=== PATIENT | male | born 1935 | race Caucasian/White ===

== ENCOUNTER → 2016-08-19 10:19 | Outpatient (CLI) | payer MEDICARE, BC ==
[2016-04-30 10:07] VITALS: BMI 28.0
[~2016-08-19 10:19] MED LIST: ALDACTONE25 MG PO; BAYER CHEWABLE81 MG PO; BUMEX 1 MG TAB1 MG PO; COMBIGAN OPHT DR5 ML EACH EYE; COREG12.5 MG PO; FLOMAX0.4 MG PO; GLUCOPHAGE500 MG PO; HYDROCODON-ACE1 EAC7 PO; KLOR-CON/EF 2525 MEQ PO; LIPITOR40 MG PO; LOVASTATIN20 MG PO; PLAVIX75 MG PO; RANEXA500 MG PO; TRAVATAN Z2.5 ML LEFT EYE; VITAMIN B-1100 M1 PO
== END | disposition home or self-care (01) ==
LOC: D.NM 10:19 → D.CT 11:00
DX: M10.9 Gout, unspecified (principal); M79.672 Pain in left foot; M79.671 Pain in right foot

== ENCOUNTER → 2016-09-01 09:12 | Outpatient (CLI) | payer MEDICARE, BC ==
[2016-04-30 10:07] VITALS: BMI 28.0
== END | disposition home or self-care (01) ==
LOC: D.RAD 09:12
DX: M25.512 Pain in left shoulder (principal)

== ENCOUNTER → 2019-06-25 12:20 | Outpatient (CLI) | payer MEDICARE, BC ==
[2016-04-30 10:07] VITALS: BMI 28.0
== END | disposition home or self-care (01) ==
LOC: D.CT 12:20
PROVIDERS: ATTEND Pediatrics
DX: R22.31 Localized swelling, mass and lump, right upper limb (principal)

== ENCOUNTER 2020-03-13 22:14 | Inpatient (IN) | payer MEDICARE, BC ==
[~2020-03-13] VITALS: Ht 182.9 cm; Wt 95.3 kg
--- NOTE | ~2020-03-13 | EC ---
PATIENT:SOURAV KIRKPATRICK DATE OF SERVICE: 03/14/20 SEX: M MEDICAL RECORD: [id number] DATE OF : 39 LOCATION:D.MS [id number] AGE OF PATIENT: 85 ADMISSION DATE: 03/14/20 REFERRING PHYSICIAN: INTERPRETING PHYSICIAN: YURI DOYLE MD ECHOCARDIOGRAM REPORT ECHO CHARGES 4 ECHO COMPLETE Date: 03/14/20 CLINICAL DIAGNOSIS: SYNCOPE ECHOCARDIOGRAPHIC MEASUREMENTS (adult normal given) AC root (d.<3.7cm) 3.4 cm LV Septum d (<1.2 cm> 1.3 cm Valve Excursion 1.3 cm LV Septum (systole) 1.4 cm Left Atria (s.<4.0cm> 4.8 cm LVPW d(<1.2cm) 0.9 cm RV (d.<2.3cm) 3.7 cm LVPW (sytole) 1.2 cm LV diastole(<5.6CM) 5.9 cm MV E-F(>70mm/sec) cm LV systole 4.8 cm LVOT Diameter 2.4 cm MV exc.(>10mm) 1.4 cm Est.ejection fraction (50-75%) % DOPPLER: LVIT cm/sec A 91 cm/sec E 127 cm/sec LA cm/sec RVSP 38 mmHg LVOT 59 cm/sec AOP1/2T m/s Asc. Ao 225 cm/sec RVOT 55 cm/sec RA cm/sec PA 73 cm/sec AV Gradient Peak 20.3 mmHg AV Mean 12.3 mmHg AV Area 1.1 cm MV Gradient Peak 5.4 mmHg MV Mean 2.7 mmHg MV Area cm COMMENTS: Welfare Analyst: [facility] Collection Officer: 2 Dr. Helms TAPE# PACS Pericardial Effusion N DATE OF SERVICE: CLINICAL DIAGNOSIS: Syncope. FINDINGS: Left ventricle - moderate global LV contractile dysfunction with ejection fraction of 35% to 40%. Mild left ventricular hypertrophy. Mild left atrial chamber dilatation. Right atrial chamber size appears normal. Right ventricular chamber size and function appears normal. Mitral valve - [id number] mitral annular calcification. Mild mitral regurgitation. There is mild thickening and calcification of the aortic valve. Aortic ECHOCARDIOGRAM REPORT [id number] SOURAV KIRKPATRICK sclerosis/mild stenosis. Mild aortic regurgitation. Tricuspid valve appears normal. Mild tricuspid regurgitation. Pulmonic valve appears normal. Mild pulmonic regurgitation. IMPRESSION: 1. Moderate global left ventricular contractile dysfunction with ejection fraction of 35% to 40%. 2. Mild aortic sclerosis/stenosis. TRANSINT:[id number] Voice Confirmation ID: [id number] DOCUMENT ID: [id number] YURI DOYLE MD CC: [id number] DICTATION DATE: 03/15/20 1134 HIGH SCHOOL LEARNING SUPPORT TEACHER: 03/15/20 1253 ADM IN [facility] [address] [place] [address]
[2020-03-13] MEDS ORDERED: PROSCAR5 MG PO (22:23)
[2020-03-13] MEDS ORDERED: ENTRESTO 49 MG1 EACH PO (22:23)
[2020-03-13] MEDS ORDERED: LEXAPRO10 MG PO (22:23)
[2020-03-13] MEDS ORDERED: CRESTOR10 MG PO (22:23)
[2020-03-13 22:40] LABS: BASOPHILS 0.2 % (0-2); EOSINOPHILS 1.1 % (0-7); HEMATOCRIT 39.7 % (42.0-54.0); HEMOGLOBIN 13.2 g/dL (13.5-17.5); IMMATURE GRANULOCYTES 0.2 % (0-5); LYMPHOCYTES 16.2 % (15-50); MCH 29.7 pg (26.0-34.0); MCHC 33.2 g/dL (31.0-37.0); MCV 89.4 fL (80.0-100.0); MEAN PLATELET VOLUME 9.5 fL (7.4-10.4); MONOCYTES 6.5 % (2-11); NEUTROPHILS 75.8 % (40-80); RBC 4.44 10x6/uL (4.20-6.10); RDW 12.7 % (11.5-14.5); WBC 9.5 10x3/uL (4.8-10.8)
[2020-03-13 22:47] LABS: PLATELET COUNT 245 10x3/uL (130-400)
[2020-03-13 22:53] LABS: APTT 25.7 SECONDS (22.8-39.4); CALC OSMOLALITY 255 mosm/kg (275-300); CARBON DIOXIDE 27.6 mmol/L (21.0-32.0); CHLORIDE - SERUM 95 mmol/L (98-107); CREATININE - SERUM 0.9 mg/dL (0.6-1.3); GLUCOSE 115 mg/dL (74-106); INR 0.98 (0.85-1.17); POTASSIUM - SERUM 4.1 mmol/L (3.5-5.1); PROTIME 12.9 SECONDS (11.6-15.0); SODIUM 127 mmol/L (136-145); UREA NITROGEN 12 mg/dL (7-18); eGFR NON AFRICAN AMERICAN 85 mL/min (90-120)
[2020-03-13 23:08] LABS: ALBUMIN 3.3 g/dL (3.4-5.0); ALKALINE PHOSPHATASE 77 U/L (30-120); ALT (SGPT) 24 U/L (10-68); BILIRUBIN - TOTAL 0.36 mg/dL (0.2-1.3); CKMB 1.7 U/L (0.0-3.6); CREATINE KINASE 72 UL (21-232); MAGNESIUM - SERUM 1.6 mg/dL (1.8-2.4); PROTEIN - SERUM 7.1 g/dL (6.4-8.2); TROPONIN-I 0.018 ng/mL (0.000-0.060)
--- NOTE | 2020-03-14 00:45 | NUR ---
EDP AT PT'S BEDSIDE TO SUTURE LACERATIONS.
[2020-03-14 03:00] VITALS: BP 119/59
--- NOTE | 2020-03-14 03:00 | NUR ---
ANSWERED PT'S CALL LIGHT, PT REQUESTING PAIN MEDICATION STATES " MY SHOULDER HURTS SO BAD I WANT TO CRY" EDP INFORMED ORDERED PRN PAIN MEDICATION GIVEN.
[2020-03-14 06:08] VITALS: BP 120/70
--- NOTE | 2020-03-14 07:30 | NUR ---
3X4 TELFA USED FOR PRESSURE DRESSING TO BRIDGE OF NOSE TO CONTROL BLEEDING.
--- NOTE | 2020-03-14 08:06 | NUR ---
COVID SWAB OBTAINED AND SENT TO THE LAB.
[2020-03-14 12:17] VITALS: BP 112/55; BMI 28.5
[2020-03-14 12:55] VITALS: BP 130/63
[2020-03-14 15:23] LABS: CKMB 1.3 U/L (0.0-3.6); CREATINE KINASE 72 UL (21-232); TROPONIN-I < 0.017 ng/mL (0.000-0.060)
[2020-03-14 15:47] LABS: BILIRUBIN NEGATIVE (NEGATIVE); KETONE NEGATIVE (NEGATIVE); NITRITE NEGATIVE (NEGATIVE); UROBILINOGEN NORMAL mg/dL (< 2); WHITE CELLS - URINE OCC HPF (0-1)
[2020-03-14 17:22] VITALS: BP 126/62
[2020-03-14 20:10] LABS: CKMB 1.4 U/L (0.0-3.6); CREATINE KINASE 86 UL (21-232)
--- NOTE | 2020-03-14 21:00 | NUR ---
IV OUT, CATH INTACT. PT REMOVED TELEMETRY. NOT COMPLYING WITH STAFF. CONFUSED ABOUT TIME/PLACE/SITUATION. REFUSING REORIENTATION. ASKING FOR , HANG. HANG(SPOUSE) CALLED, NO ANSWER. SOURAV SAMANIEGO JR(SON) CALLED. SON STATES HANG IS NOT HIS LEGAL AND IS NOT KNOWLEDGABLE OF PTs MEDICAL INFORMATION AND QUESTIONS/CONCERNS WOULDL BE BETTER ANSWERED THROUGH HIM. HE ALSO REPORTS PT DRINKS A FEW GLASSES HARPREET SCOTCH A DAY AND HE HAS GONE THROUGH DTs DURING PRIOR HOSPITALIZATIONS. SON, ALSO, SPOKE WITH PT AND ENCOURAGED COMPLIANCE. PT ALLOWED INSERTION OF 20G IV TO LEFT FOREARM AND APPLICATION OF TELEMETRY. PTs SON ENCOURAGES ALL CALLS OF NEW INFORMATION, CONCERNS, OR IF PT BECOMES NON-COMPLIANT AGAIN-ANY TIME OF DAY OF NIGHT. CTM.
[2020-03-14 21:08] VITALS: BP 112/55
[2020-03-15 01:14] VITALS: BP 187/67
--- NOTE | 2020-03-15 01:18 | NUR ---
I have reviewed this patient and I concur with the Shift Assessment completed by the Licensed Practical Nurse today this shift.
[2020-03-15 02:02] LABS: BASOPHILS 0.2 % (0-2); EOSINOPHILS 0.8 % (0-7); HEMATOCRIT 34.2 % (42.0-54.0); HEMOGLOBIN 11.3 g/dL (13.5-17.5); IMMATURE GRANULOCYTES 0.2 % (0-5); LYMPHOCYTES 11.3 % (15-50); MCH 29.4 pg (26.0-34.0); MCV 88.8 fL (80.0-100.0); MEAN PLATELET VOLUME 9.5 fL (7.4-10.4); MONOCYTES 9.2 % (2-11); NEUTROPHILS 78.3 % (40-80); PLATELET COUNT 200 10x3/uL (130-400); RBC 3.85 10x6/uL (4.20-6.10); RDW 12.7 % (11.5-14.5)
[2020-03-15 02:28] LABS: ALBUMIN 2.9 g/dL (3.4-5.0); ALKALINE PHOSPHATASE 61 U/L (30-120); ALT (SGPT) 18 U/L (10-68); BILIRUBIN - TOTAL 0.49 mg/dL (0.2-1.3); CALC OSMOLALITY 253 mosm/kg (275-300); CALCIUM 8.2 mg/dL (8.5-10.1); CARBON DIOXIDE 27.6 mmol/L (21.0-32.0); CHLORIDE - SERUM 96 mmol/L (98-107); CKMB 1.6 U/L (0.0-3.6); CREATINE KINASE 102 UL (21-232); CREATININE - SERUM 0.8 mg/dL (0.6-1.3); GLUCOSE 118 mg/dL (74-106); MAGNESIUM - SERUM 1.6 mg/dL (1.8-2.4); POTASSIUM - SERUM 4.2 mmol/L (3.5-5.1); PRO BNP 1691 pg/mL (0-450); PROTEIN - SERUM 6.1 g/dL (6.4-8.2); SODIUM 126 mmol/L (136-145); TROPONIN-I 0.023 ng/mL (0.000-0.060); UREA NITROGEN 13 mg/dL (7-18); eGFR NON AFRICAN AMERICAN > 90 mL/min (90-120)
--- NOTE | 2020-03-15 04:06 | NUR ---
PT REFUSING TELEMETRY. WILL NO ALLOW IT TO BE REAPPLIED, CURSING AT NURSES, CTM.
--- NOTE | 2020-03-15 07:53 | NUR ---
0700 BEDSIDE REPORT RECEIVED ASSISTED UP TO BSC ALARM WENT OFF PT WAS CLIMBING OUT OF BED ATIVAN 0.5 GIVEN IV ASSESSMENT COMPLETE
[2020-03-15 18:06] VITALS: BP 142/71
--- NOTE | 2020-03-15 18:51 | NUR ---
ORTHOSATIC BP FOLLOWS: LYING BP 134/80 HR 73 SITTING 141/70 83 STANDING 89/65 82
--- NOTE | 2020-03-15 18:54 | NUR ---
874 YOGESH NOTIFIED FOR REHAB CONSULT
[2020-03-15 21:18] VITALS: BP 123/71
--- NOTE | 2020-03-16 01:11 | NUR ---
ASSISTED TO TOILET AND BED CHANGE AND GOWN CHANGE PROVIDED TO PATIENT. RETURNED TO BED SAFELY. VARGAS ALARM ON. CPOC.
[2020-03-16 01:23] VITALS: BP 128/75
[2020-03-16 05:08] VITALS: BP 143/63
[2020-03-16 07:03] LABS: BASOPHILS 0.2 % (0-2); EOSINOPHILS 1.8 % (0-7); HEMATOCRIT 32.8 % (42.0-54.0); HEMOGLOBIN 10.5 g/dL (13.5-17.5); IMMATURE GRANULOCYTES 0.3 % (0-5); LYMPHOCYTES 11.4 % (15-50); MCH 28.5 pg (26.0-34.0); MCV 88.9 fL (80.0-100.0); MEAN PLATELET VOLUME 9.9 fL (7.4-10.4); MONOCYTES 9.2 % (2-11); NEUTROPHILS 77.1 % (40-80); PLATELET COUNT 235 10x3/uL (130-400); RBC 3.69 10x6/uL (4.20-6.10); RDW 12.7 % (11.5-14.5); WBC 10.2 10x3/uL (4.8-10.8)
[2020-03-16 07:18] LABS: ALBUMIN 2.8 g/dL (3.4-5.0); ALKALINE PHOSPHATASE 61 U/L (30-120); ALT (SGPT) 17 U/L (10-68); BILIRUBIN - TOTAL 0.45 mg/dL (0.2-1.3); CALC OSMOLALITY 256 mosm/kg (275-300); CALCIUM 8.3 mg/dL (8.5-10.1); CARBON DIOXIDE 26.3 mmol/L (21.0-32.0); CHLORIDE - SERUM 97 mmol/L (98-107); CREATININE - SERUM 0.7 mg/dL (0.6-1.3); GLUCOSE 102 mg/dL (74-106); MAGNESIUM - SERUM 1.9 mg/dL (1.8-2.4); POTASSIUM - SERUM 3.9 mmol/L (3.5-5.1); PROTEIN - SERUM 6.1 g/dL (6.4-8.2); SODIUM 129 mmol/L (136-145); eGFR NON AFRICAN AMERICAN > 90 mL/min (90-120)
[2020-03-16 07:19] LABS: UREA NITROGEN 8 mg/dL (7-18)
--- NOTE | 2020-03-16 08:15 | NUR ---
PATIENT CNC MAINTENANCE MECHANIC LIGHT. COMPLAINS OF COUGHING UP BLOOD. BRIGHT RED BLOOD NOTED IN URINAL AND ON [place]. CALLED HANG RO , ORDERED A CHEST XRAY AND CONSULT TO DR. HATFIELD. WILL CONTINUE TO MONITOR.
[2020-03-16 08:22] VITALS: BP 123/59
[2020-03-16 12:07] VITALS: BP 136/61
--- NOTE | 2020-03-16 14:41 | NUR ---
rehab prescreen thank you for this eval, currently alda patient hasnt paricipated in any therapy so unable to deturm his need for therapy. will monitor this patient and his progress. thank you for this eval. maritza gonzalez lpn clinical liasion
[2020-03-16 17:48] VITALS: BP 111/48
--- NOTE | 2020-03-16 18:14 | NUR ---
PT ADITTED AT 1630 FROM ER. MOM STATES BABY IS STILL NURSING AND HAVING WET/DIRTY DIAPERS APPROX 10/DAY. STATES RAN FEVER THIS AM. VS ON ARRIVAL 98.4 TEMPORAL P 145 R 22 BP 126/58 WT 6.035 KG PER PEDI SCALE. NO DIAPER RASH NOTED. SALINE LOCK TO LEFT HAND. DR SMITH HERE FOR LUMBAR PUNCTURE. PERMIT SIGNED.
--- NOTE | 2020-03-16 19:00 | NUR ---
PATIENT ALERT AND ORIENTED TO SELF AND SURROUNDINGS. PATIENT CURRENTLY HAVING EPISTAXIS. ASSISTED PATIENT WITH CLEAN UP. HAD PATIENT SIT UP IN BED, RAISE HEAD OF BED. PROVIDED WITH WASH CLOTHS AND TISSUES, INSTRUCTED TO HOLD PRESSURE. BLEEDING DECREASING. CALL LIGHT CLOSE. PATIENT CLOSE TO NURSES STATION FOR MONITORING. FALL PRECAUTIONS IN PLACE. ASSESSMENT PERFORMED. CPOC.
--- NOTE | 2020-03-16 20:30 | NUR ---
PROVIDED ICE AND INSTRUCTED PATIENT TO USE ICE PACK AND APPLY PRESSURE TO NOSE. PATIENT PERFORMS INSTRUCTIONS WITH NO PROBLEMS. BLEEDING CONTINUING TO DECREASE.
--- NOTE | 2020-03-16 21:15 | NUR ---
BLEEDING VERY MINIMAL AFTER ICE PACKS TO NOSE. ASSISTED PATIENT WITH CHG BATH, LINEN AND GOWN CHANGE. PATIENT TOLERATED WELL. CALL LIGHT CLOSE. INSTRUCTED PATIENT TO KEEP APPLYING PRESSURE AT THIS TIME. PATIENT FOLLOWING INSTRUCTIONS WHEN EXTITING THE ROOM. CPOC.
[2020-03-16 21:48] VITALS: BP 138/72
--- NOTE | 2020-03-16 21:52 | NUR ---
NO EPISTAXIS AT THIS TIME. ICE PACK AT BEDSIDE IF NEEDED. ADMINISTERED PATIENT MEDICATIONS. FSBS 124. DENIES FURTHER NEEDS AT THIS TIME. CALL LIGHT CLOSE. FALL PRECAUTIONS REMAIN IN PLACE. WATER, GLASSES, AND PHONE WITHIN REACH OF PATIENT. REFUSING SCD'S AT THIS TIME. WEARING BLUE SOCKS PER FALL PRECAUTIONS AND YELLOW GOWN. INCENTIVE SPIROMETER CLOSE TO PATIENT, ENCOURAGED TO USE. REFUSES AT THIS TIME. CPOC.
--- NOTE | 2020-03-16 23:40 | NUR ---
RESTING WITH NO SIGNS OR SYMPTOMS OF DISTRESS AT THIS TIME. CALL LIGHT REMAINS CLOSE. CPOC.
--- NOTE | 2020-03-17 03:43 | NUR ---
MINIMAL NOSE BLEED. PROVIDED FACIAL CLEAN UP AND NEW ICE BAG. ASSISTED PATIENT WITH GETTING COMFORTABLE, APPLYING ICE PACK, AND PROVIDING WARM BLANKET. RESTING WITH ICE PACK ON NOSE WHEN EXITING THE ROOM.
[2020-03-17 05:13] VITALS: BP 103/45
[2020-03-17 05:43] LABS: BASOPHILS 0.2 % (0-2); EOSINOPHILS 1.2 % (0-7); HEMATOCRIT 27.9 % (42.0-54.0); HEMOGLOBIN 9.2 g/dL (13.5-17.5); IMMATURE GRANULOCYTES 0.2 % (0-5); LYMPHOCYTES 11.9 % (15-50); MCH 29.7 pg (26.0-34.0); MEAN PLATELET VOLUME 9.9 fL (7.4-10.4); MONOCYTES 7.8 % (2-11); NEUTROPHILS 78.7 % (40-80); PLATELET COUNT 234 10x3/uL (130-400); RDW 12.8 % (11.5-14.5); WBC 8.9 10x3/uL (4.8-10.8)
[2020-03-17 06:26] LABS: ALBUMIN 2.5 g/dL (3.4-5.0); ALKALINE PHOSPHATASE 54 U/L (30-120); ALT (SGPT) 17 U/L (10-68); BILIRUBIN - TOTAL 0.24 mg/dL (0.2-1.3); CALC OSMOLALITY 266 mosm/kg (275-300); CALCIUM 8.3 mg/dL (8.5-10.1); CARBON DIOXIDE 26.3 mmol/L (21.0-32.0); CHLORIDE - SERUM 98 mmol/L (98-107); CREATININE - SERUM 0.7 mg/dL (0.6-1.3); GLUCOSE 125 mg/dL (74-106); MAGNESIUM - SERUM 1.8 mg/dL (1.8-2.4); POTASSIUM - SERUM 3.9 mmol/L (3.5-5.1); PROTEIN - SERUM 5.6 g/dL (6.4-8.2); SODIUM 131 mmol/L (136-145); eGFR NON AFRICAN AMERICAN > 90 mL/min (90-120)
[2020-03-17 06:27] LABS: UREA NITROGEN 21 mg/dL (7-18)
--- NOTE | 2020-03-17 07:15 | NUR ---
RECEIVED BEDSIDE REPORT. PT LAYING IN BED, EVEN RESPIRATIONS, EYES CLOSED. PIV IN LEFT FOREARM, PATENT AND INFUSING, NO REDNESS OR SWELLING. BRUISES ON FACE, NOSE AND CHIN, LACERATION ON BRIDGE OF NOSE. PT HAS PACEMAKER. BED LOW, ALARM ON. CL IN REACH, WILL CONTINUE TO MONITOR.
[2020-03-17 07:59] VITALS: BP 145/61
--- NOTE | 2020-03-17 09:30 | NUR ---
PT C/O PAIN 01/27, PROVIDED PAIN MEDS PER ORDER, PT TOLERATED WELL. PT ON FLUID RESTRICTION OF 12OOML, EDUCATED PT AND HE VERBALIZED UNDERSTANDING. BED ALARM ON, CL IN REACH.
--- NOTE | 2020-03-17 11:30 | NUR ---
NM AT BEDSIDE, EXPLAINED PROCEDURE TO PT AND BROTHER, BOTH VERBALIZED UNDERSTANDING AND SIGNED CONSENTS. WILL HOLD ALL BLOOD THINNERS UNTIL PROCEDURE ON TUE. BED LOW, CL IN REACH.
[2020-03-17 11:49] VITALS: BP 126/61
--- NOTE | 2020-03-17 14:01 | MORECARE ---
CASE MANAGEMENT DISCHARGE SUMMARY PATIENT: SOURAV KIRKPATRICK UNIT: [id number] ADM DATE: 03/14/20 AGE: 85 : 37 SEX: M ROOM/BED: D.2229 AUTHOR: RADHA LLANOS PHYSICIAN: REFERRING PHYSICIAN: MIYA CHAVES MD DATE OF SERVICE: 03/17/20 Discharge Plan Patient Name: SOURAV KIRKPATRICK Facility: [facility]:[place] : 1935 Planned Disposition: Anticipated Discharge Date: Discharge Date: Expected LOS: Initial Reviewer: [id number] Initial Review Date: 03/14/2020 Generated: 03/17/20 3:00 pm Comments DCP- Discharge Planning Updated by [email or web address]: Leyla Leija on 03/17/20 12:[address] Patient Name: SOURAV KIRKPATRICK Admission Status: ER Accout number: [id number] Admission Date: 03-14-2020 : 1935 Admission Diagnosis: Attending: ANDIE, Current LOS: 3 Anticipated DC Date: Planned Disposition: Primary Insurance: MEDICARE A & B Discharge Planning Comments: CM met with patient AND HIS SON at bedside after explaining CM role and obtaining verbal consent. CM discussed availability / needs of home health, REHAB and medical equipment. STATES HE HAS DME AND HAS [facility] AT HOME. HE IS UNSURE OF HIS DC PLAN. STATES UNSURE IF HE IS RESUMING HOSPICE OR WILL NEED HH OR REHAB. HE ASKED ME TO TALK WITH HIS SON SOURAV AND GAVE ME HIS NUMBER [phone]. I WILL TALK WITH SON TO GET A BETTER IDEA OF THE DC PLAN. I WILL FOLLOW AND ASSIST NEEDED. Belt Cleaner: Leyla Leija DCPIA - Discharge Planning Initial Assessment Updated by [id number]: Leyla Leija on 03/17/20 1:54 pm * Is the patient Alert and Oriented? Yes * PCP SAAVEDRA * Pharmacy [facility] * Preadmission Environment Home with Family * ADLs Independent * Other Equipment CANE, WALKER, WHEEL CHAIR * List name and contact numbers for known caregivers / representatives who currently or will assist patient after discharge: LUIS A BENJAMIN, * Community resources currently utilized [facility]osp[facility] Home * Please name any agencies selected above. [facility] * Additional services required to return to the preadmission environment? No * Can the patient safely return to the preadmission environment? Yes * Has this patient been hospitalized within the prior 30 days at any hospital? No External Providers External Provider: [facility] in Next Contact Date: Service Request Date: Service Type: Resolution: Reviewer: Comments: Patient Name: SOURAV KIRKPATRICK Page [phone] at 1401 All edits/amendments must be made on the electronic document DICTATION DATE: 03/17/20 1400 PRESCRIPTION CLERK: SEBLE 03/17/20 1400 RPT#: [id number] DC DATE: STATUS: ADM IN [facility] [address] [place] [address] END OF REPORT
--- NOTE | 2020-03-17 15:04 | NUR ---
OT NOTE: PT REQUIRED MIN A FOR UB HYGIENE TASKS. PT IS CONFUSED AND REQUIRED VERBAL CUES FOR TASK COMPLETION. PT COMPLETED POSITIONING WITH MIN A. 120-144 THANK YOU,MIMI KHALIL
--- NOTE | 2020-03-17 15:30 | NUR ---
ASSISTED PT WITH BED CHANGE AND BED BATH, PT TOLERATED WELL. BED LOW, CL IN REACH.
[2020-03-17 16:49] VITALS: BP 139/63
--- NOTE | 2020-03-17 18:45 | NUR ---
PT C/O THAT DINNER TRAY WAS TO SOLID FOR HIM TO EAT AND HE IS MISSING TEETH AND CANNOT CHEW, PUT IN ORDER TO DIETARY. BED LOW, CL IN REACH.
--- NOTE | 2020-03-17 19:30 | NUR ---
RECEIVED BEDSIDE REPORT. PT LAYING IN BED, EYES CLOSED, EVEN RESPIRATIONS. BRUISES ON FACE AND CHIN. LACERATION AND BRUISE ON BRIDGE OF NOSE. PIV IN LEFT FOREARM, PATENT AND INFUSING, NO REDNESS OR SWELLING. PT HAS PACEMAKER. EDUCATED PT ON CL AND NEEDS, VERBALIZED UNDERSTANDING. BED LOW, RAILS X2. CL IN REACH, WILL CONTINUE TO MONITOR.
[2020-03-17 20:00] VITALS: BP 127/60
--- NOTE | 2020-03-17 20:05 | NUR ---
RESTING IN BED WITH NO NEEDS ALERT WITH CONFUSION PRESENT. ON ROOM AIR. IV TO LEFT FORARM WITH NS AT 75ML/HR, FSBS ACHS WITH S/S [place] [address] [place] BRUSING NOTED TO FACE AND NECK. LEFT EYE, LASARATION TO NOSE. BED ALARM IN PLACE AND WORKING. CALL LIGHT IN REACH. NO S/S OF DISTRESS NOTED AT THIS TIME.
[2020-03-18 04:00] VITALS: BP 112/59
[2020-03-18 06:36] LABS: BASOPHILS 0.2 % (0-2); EOSINOPHILS 2.2 % (0-7); HEMATOCRIT 26.7 % (42.0-54.0); HEMOGLOBIN 8.8 g/dL (13.5-17.5); IMMATURE GRANULOCYTES 0.2 % (0-5); MCH 29.7 pg (26.0-34.0); MCV 90.2 fL (80.0-100.0); MEAN PLATELET VOLUME 9.8 fL (7.4-10.4); MONOCYTES 7.9 % (2-11); NEUTROPHILS 77.5 % (40-80); PLATELET COUNT 234 10x3/uL (130-400); RBC 2.96 10x6/uL (4.20-6.10); RDW 12.8 % (11.5-14.5); WBC 9.7 10x3/uL (4.8-10.8)
[2020-03-18 07:06] LABS: ALBUMIN 2.5 g/dL (3.4-5.0); ALKALINE PHOSPHATASE 51 U/L (30-120); ALT (SGPT) 16 U/L (10-68); BILIRUBIN - TOTAL 0.21 mg/dL (0.2-1.3); CALC OSMOLALITY 265 mosm/kg (275-300); CALCIUM 8.2 mg/dL (8.5-10.1); CARBON DIOXIDE 26.3 mmol/L (21.0-32.0); CHLORIDE - SERUM 97 mmol/L (98-107); CREATININE - SERUM 0.8 mg/dL (0.6-1.3); GLUCOSE 127 mg/dL (74-106); MAGNESIUM - SERUM 1.6 mg/dL (1.8-2.4); POTASSIUM - SERUM 3.9 mmol/L (3.5-5.1); PROTEIN - SERUM 5.6 g/dL (6.4-8.2); SODIUM 131 mmol/L (136-145); eGFR NON AFRICAN AMERICAN > 90 mL/min (90-120)
--- NOTE | 2020-03-18 07:15 | NUR ---
RECEIVED BEDSIDE REPORT. PIV TO LEFT FOREARM, PATENT AND INFUSING, NO REDNESS OR SWELLING. BRUISES ON FACE, EYES, CHIN AND UPPER NECK. LACERATION ON BRIDGE OF NOSE. MISSING TEETH FROM FALL. PT REPORTS PACEMAKER AND DEFIBL. PT ABLE TO USE URINAL AT BEDSIDE, AMBULATES WITH TWO PERSON ASSIST. EDUCATED PT ON CL AND NEEDS, VERBALIZED UNDERSTANDING. BED LOW, ALARM ON, RAILS X2. CL IN REACH, WILL CONTINUE TO MONITOR.
[2020-03-18 07:16] LABS: UREA NITROGEN 15 mg/dL (7-18)
[2020-03-18 08:51] VITALS: BP 151/58
--- NOTE | 2020-03-18 09:30 | NUR ---
PT C/O PAIN 01/27, PROVIDED MEDS PER ORDER. PT C/O SOILED LININS, CHANGED LININ AND GOWN, PT TOLERATED WELL. BED LOW, ALARM ON, RAILS X2. CL IN REACH, WILL CONTINUE TO MONITOR.
--- NOTE | 2020-03-18 11:25 | NUR ---
Pt has hx of falling. He has bruising and redness to both eyes, mouth, neck and arms. There is a laceration with sutures on nose. No chronic wounds are noted. Wound care monitoring.
--- NOTE | 2020-03-18 11:30 | NUR ---
PT FSBS 130, NO INSULIN GIVEN PER SLIDING SCALE. BED LOW, ALARM ON, RAILS X2. CL IN REACH, WILL CONTINUE TO MONITOR.
[2020-03-18 11:51] VITALS: BP 111/45
[2020-03-18 14:45] VITALS: Ht 182.9 cm; Wt 95.3 kg
--- NOTE | 2020-03-18 15:42 | NUR ---
OT NOTE: ATTEMPTED THERAPY SEVERAL TIMES, HOWEVER, UNABLE TO SEE UNTIL PM. PT ABLE TO PERFORM BED MOB WITH MOD ASSIST; SIT TO STAND WITH MIN ASSIST X 2; ABLE TO TAKE A FEW STEPS IN ROOM WITH WALKER, IV POLE, AND MIN/MOD ASSIST X 2..REQURIES MOD ASSIST FOR WALKER MGMT . PT FATIGUED QUICKLY. EDUCATED ON UE/LE EXS WHILE ON EOB. BACK TO BED WITH MAX ASSIST; PT ABLE TO PERFORM FEEDING AND SIMPLE GROOMING WITH SET UP; MAX ASSIST WITH TOILET HYGIENE MERY HERNANDEZ, OTR/L [phone]
--- NOTE | 2020-03-18 18:06 | NUR ---
OT NOTE: PT COMPLETED SIDE ROLLING WITH MIN A. PT COMPLETED SUPINE TO SIT WITH MOD A. PT REQUIRED MOD A TO MANAGE LE AND MAINTAIN TRUNK CONTROL AT EOB. PT USED BUE STRENGTH TO ASSIST IN SITTING BALANCE BY GRIPPING SIDE RAIL AND EOB BED. [phone] DEE PERRY COTA
[2020-03-18 18:09] VITALS: BP 120/60
[2020-03-18 20:00] VITALS: BP 126/57
--- NOTE | 2020-03-18 20:00 | NUR ---
PT SITTING UP IN BED WITHOUT DISTRESS, STATES HE ACCIDENTALLY SPILT URINAL ON HIMSELF. LINENS CHANGED AT THIS TIME. IV LEFT FA INFUSING NS @ 75. DENIES NEEDS AT THIS TIMTE. CL IN REACH, WILL CTM
--- NOTE | 2020-03-18 20:00 | NUR ---
PT SITTING UP IN BED WITHOUT DISTRESS, AOX4. IV LEFT FA INFUSING NS @ 75. BED ALARM ON. USING URINAL. REQUESTING PAIN MEDS FOR PAIN. GAVE MORPHINE ORDERED. FSBS 139, NO COVERAGE PER SS. DENIES OTHER NEEDS AT THIS TIME. CL IN REACH, WILL CTM
--- NOTE | 2020-03-18 21:30 | NUR ---
PT FELT LIKE HE NEEDED TO HAVE BM. ASSISTED PT UP TO BEDSIDE COMMODE WITH MOD ASSIST. PT HAD SMALL BM. ASSISTED BACK TO BED. DENIES OTHER NEEDS. WILL CTM
--- NOTE | 2020-03-19 02:00 | NUR ---
PT PULLED IV OUT OF LEFT FA WITH CATH INTACT. STATES HE GOT TANGLED UP AND COULD NOT MOVED ARM SO HE PULLED IT OUT. SITED 2OG IV TO LEFT FA X1 ATTMEPT. DENIES OTHER NEEDS. WILL CTM
[2020-03-19 04:00] VITALS: BP 120/58
[2020-03-19 06:11] LABS: BASOPHILS 0.2 % (0-2); EOSINOPHILS 2.2 % (0-7); HEMATOCRIT 26.8 % (42.0-54.0); HEMOGLOBIN 8.6 g/dL (13.5-17.5); IMMATURE GRANULOCYTES 0.3 % (0-5); LYMPHOCYTES 10.1 % (15-50); MCH 28.7 pg (26.0-34.0); MCHC 32.1 g/dL (31.0-37.0); MCV 89.3 fL (80.0-100.0); MEAN PLATELET VOLUME 9.7 fL (7.4-10.4); MONOCYTES 7.1 % (2-11); NEUTROPHILS 80.1 % (40-80); PLATELET COUNT 250 10x3/uL (130-400); RDW 12.7 % (11.5-14.5); WBC 10.6 10x3/uL (4.8-10.8)
[2020-03-19 06:46] LABS: ALBUMIN 2.6 g/dL (3.4-5.0); ALKALINE PHOSPHATASE 54 U/L (30-120); ALT (SGPT) 18 U/L (10-68); BILIRUBIN - TOTAL 0.28 mg/dL (0.2-1.3); CALC OSMOLALITY 257 mosm/kg (275-300); CALCIUM 7.7 mg/dL (8.5-10.1); CARBON DIOXIDE 28.1 mmol/L (21.0-32.0); CHLORIDE - SERUM 95 mmol/L (98-107); CREATININE - SERUM 0.7 mg/dL (0.6-1.3); GLUCOSE 132 mg/dL (74-106); MAGNESIUM - SERUM 1.7 mg/dL (1.8-2.4); POTASSIUM - SERUM 3.9 mmol/L (3.5-5.1); PROTEIN - SERUM 5.8 g/dL (6.4-8.2); SODIUM 128 mmol/L (136-145); eGFR NON AFRICAN AMERICAN > 90 mL/min (90-120)
[2020-03-19 06:48] LABS: UREA NITROGEN 11 mg/dL (7-18)
--- NOTE | 2020-03-19 07:15 | NUR ---
RECEIVED BEDSIDE REPORT. PT LAYING IN BED, A & OX1, ORIENTATED TO SELF ONLY. PT STATES "WHEN WILL I BE GOING TO THE HOSPITAL FOR MY SURGERY?", REORIENTATED PT TO WHERE HE WAS AND THAT HE WOULD BE GOING IN FOR A CISTERNOGRAM AND NOT SX, DISCUSSED THE PROCEDURE, PT VERBALIZED UNDERSTANDING. PIV TO LEFT FOREARM, PATENT AND INFUSING. PT ABLE TO USE BEDSIDE URINAL, ONE PERSON ASSSIT TO BR. BRUISES ON BILAT ARMS, BILAT EYES, BRIDGE OF NOSE, CHIN AND UPPER NECK. LACERATION ON BRIDGE OF NOSE, MISSING TEETH. EDUCATED PT OF FLUID RESTRICTION, CL AND NEEDS, VERBALIZED UNDERSTANDING. BED LOW, RAILS X2, ALARM ON. CL IN REACH. WILL CONTINUE TO MONITOR.
[2020-03-19 07:58] VITALS: BP 113/46
--- NOTE | 2020-03-19 08:49 | NUR ---
TIMEOUT PERFORMED AT 0835 WITH AND NAME
--- NOTE | 2020-03-19 09:10 | NUR ---
NUCLEAR MED ESCORTED PT TO CISTERNOGRAM VIA BED.
--- NOTE | 2020-03-19 10:45 | NUR ---
NUCLEAR MED ESCORTED PT TO ROOM VIA BED. VS WNL. GIVEN POST PROCEDURE INSTRUCTIONS SEE CHART. INFORMED PT THAT PHYSICAL THERAPY OF HOLD ON THERAPY. PT ABLE TO RESUME BLOOD THINNER MEDICATIONS. GAVE MORNING MEDS AND BLOOD THINNERS. BED LOW, ALARM ON. CL IN REACH. WILL CONITNUE TO MONITOR.
[2020-03-19 11:38] VITALS: BP 141/65
--- NOTE | 2020-03-19 14:07 | NUR ---
Nutrition Follow-up: Patient with some confusion per nursing notes. Diet: Cardiac Mech Soft + Glucerna and magic cup with meals PO intake: 0-25% x last 3 meals recorded Last BM: 03/15/20. Wt: 210# (03/18/20) Meds noted: SSI, metformin, amoxicillin, NS@75 Labs noted: Alb 2.6(L), Mag 1.7(L), POC Glu 127(H), Na 128(L) Recommend continue current diet and oral nutrition supplements. Recommend encouraged PO intake and help with meals by nursing staff if needed. May need to consider advanced nutrition support if PO intake does not improve. RD following.
--- NOTE | 2020-03-19 15:42 | MORECARE ---
CASE MANAGEMENT DISCHARGE SUMMARY PATIENT: SOURAV KIRKPATRICK UNIT: [id number] ADM DATE: 03/14/20 AGE: 85 : 37 SEX: M ROOM/BED: D.2229 AUTHOR: ROMIDOC PHYSICIAN: REFERRING PHYSICIAN: MIYA CHAVES MD DATE OF SERVICE: 03/19/20 Discharge Plan Patient Name: SOURAV KIRKPATRICK Facility: [facility]:[place] : 1935 Planned Disposition: Anticipated Discharge Date: Discharge Date: Expected LOS: Initial Reviewer: [id number] Initial Review Date: 03/14/2020 Generated: 03/19/20 4:41 pm Comments DCP- Discharge Planning Updated by [email or web address]: Leyla Leija on 03/19/20 2:[address] Patient Name: SOURAV KIRKPATRICK Admission Status: ER Accout number: [id number] Admission Date: 03-14-2020 : 1935 Admission Diagnosis:FRACTURE OF NASAL BONES, INIT ENCNTR FOR CLOSED FRACTUR Attending: ANDIE, Current LOS: 5 Anticipated DC Date: Planned Disposition: Primary Insurance: MEDICARE A & B Discharge Planning Comments: PATIENT WOULD BE APPROPRIATE FOR [facility], [facility] CAN ACCEPT HIM WHEN HES MEDICALLY STABLE. General Road Production Manager: Leyla Leija DCP- Discharge Planning Updated by [email or web address]: Leyla Leija on 03/17/20 12:[address] Patient Name: SOURAV KIRKPATRICK Admission Status: ER Accout number: [id number] Admission Date: 03-14-2020 : 1935 Admission Diagnosis: Attending: ANDIE, Current LOS: 3 Anticipated DC Date: Planned Disposition: Primary Insurance: MEDICARE A & B Discharge Planning Comments: CM met with patient AND HIS SON at bedside after explaining CM role and obtaining verbal consent. CM discussed availability / needs of home health, REHAB and medical equipment. STATES HE HAS DME AND HAS [facility] AT HOME. HE IS UNSURE OF HIS DC PLAN. STATES UNSURE IF HE IS RESUMING HOSPICE OR WILL NEED HH OR REHAB. HE ASKED ME TO TALK WITH HIS SON SOURAV AND GAVE ME HIS NUMBER [phone]. I WILL TALK WITH SON TO GET A BETTER IDEA OF THE DC PLAN. I WILL FOLLOW AND ASSIST NEEDED. General Road Production Manager: Leyla Leija DCPIA - Discharge Planning Initial Assessment Updated by [id number]: Leyla Leija on 03/17/20 1:54 pm * Is the patient Alert and Oriented? Yes * PCP SAAVEDRA * Pharmacy [facility] * Preadmission Environment Home with Family * ADLs Independent * Other Equipment CANE, WALKER, WHEEL CHAIR * List name and contact numbers for known caregivers / representatives who currently or will assist patient after discharge: LUIS A BENJAMIN, * Community resources currently utilized [facility]osp[facility] * Please name any agencies selected above. [facility] * Additional services required to return to the preadmission environment? No * Can the patient safely return to the preadmission environment? Yes * Has this patient been hospitalized within the prior 30 days at any hospital? No Last DP export: 03/17/20 1:01 p Patient Name: SOURAV KIRKPATRICK Page 65048 at 1542 All edits/amendments must be made on the electronic document DICTATION DATE: 03/19/20 1541 CHAIN SAW DRIVER: SEBLE 03/19/20 1541 RPT#: [id number] DC DATE: STATUS: ADM IN [facility] [address] [place] [address] END OF REPORT
--- NOTE | 2020-03-19 16:10 | NUR ---
FSBS 152, COVERED WITH 2 UNITS INSULIN TO RIGHT ARM, PT TOLERATED WELL, WILL CONTINUE TO MONITOR.
[2020-03-19 16:37] VITALS: BP 125/56
[2020-03-19 20:00] VITALS: BP 137/71
--- NOTE | 2020-03-19 20:00 | NUR ---
PT SITTING UP IN BED WITHOUT DISTRESS, SLIGHTLY CONFUSED TO SITUATION BUT ABLE TO REORIENT EASILY. IV LEFT FA INFUSING NS @ 75. PT STATES PAIN IN BACK 4/10, GAVE MORPHINE ORDERED. FSBS 139, NO COVERAGE PER SS. DENIES OTHER NEEDS AT THIS TIME. CL IN REACH, WILL CTM
--- NOTE | 2020-03-19 22:00 | NUR ---
PT YELLING OUT HELLO, UPON ENTERING PT ROOM HE ASKED WHAT WAS GOING ON OUTSIDE. EXPLAINED TO PT THAT HE WAS HEARING OTHER NURSES AND PATIENTS IN THE HALLWAY. HE STATED IT SCARED HIM AND ASKED ME TO CLOSE THE DOOR. DENIES OTHER NEEDS. CL IN REACH, WILL CTM
[2020-03-20 04:00] VITALS: BP 127/60
[2020-03-20 06:27] LABS: BASOPHILS 0.2 % (0-2); HEMATOCRIT 27.8 % (42.0-54.0); HEMOGLOBIN 9.2 g/dL (13.5-17.5); IMMATURE GRANULOCYTES 0.3 % (0-5); LYMPHOCYTES 11.7 % (15-50); MCH 29.3 pg (26.0-34.0); MCHC 33.1 g/dL (31.0-37.0); MCV 88.5 fL (80.0-100.0); MEAN PLATELET VOLUME 9.8 fL (7.4-10.4); MONOCYTES 6.6 % (2-11); NEUTROPHILS 79.2 % (40-80); PLATELET COUNT 267 10x3/uL (130-400); RBC 3.14 10x6/uL (4.20-6.10); RDW 12.8 % (11.5-14.5); WBC 10.5 10x3/uL (4.8-10.8)
[2020-03-20 06:54] LABS: ALBUMIN 2.9 g/dL (3.4-5.0); ALKALINE PHOSPHATASE 56 U/L (30-120); ALT (SGPT) 21 U/L (10-68); BILIRUBIN - TOTAL 0.29 mg/dL (0.2-1.3); CALC OSMOLALITY 254 mosm/kg (275-300); CALCIUM 8.5 mg/dL (8.5-10.1); CARBON DIOXIDE 28.6 mmol/L (21.0-32.0); CHLORIDE - SERUM 93 mmol/L (98-107); CREATININE - SERUM 0.8 mg/dL (0.6-1.3); GLUCOSE 118 mg/dL (74-106); MAGNESIUM - SERUM 1.8 mg/dL (1.8-2.4); POTASSIUM - SERUM 4.1 mmol/L (3.5-5.1); PROTEIN - SERUM 6.3 g/dL (6.4-8.2); SODIUM 127 mmol/L (136-145); UREA NITROGEN 10 mg/dL (7-18); eGFR NON AFRICAN AMERICAN > 90 mL/min (90-120)
--- NOTE | 2020-03-20 07:10 | NUR ---
PT IS RESTING IN BED WITH EYES CLOSED. RESPIRATIONS ARE EVEN AND UNLABORED. PT IS EASILYA ROUSED WITH VERBAL STIMULATION. PT IS AAO X 4 UPON AROUSAL AND ANSWERS ALL QUESTIONS APPROPRIATELY. PIV TO LEFT FA INFUSING PER ORDER WITHOUT DIFFICULTY. LACERATION TO NOSE NOTED. PT DENIES PRESENCE OF PAIN/N/V/DYSPNEA AT THIS TIME. PT DENIES PRESENCE OF NUMBNESS/TINGLING AT THIS TIME. FALL PRECAUTIONS IN PLACE. BED IS IN THE LOWEST POSITION. CALL LIGHT AND BEDSIDE TABLE ARE WITHIN REACH. SIDE RAILS X 2. PT DENIES FURTHER NEEDS. WILL CONT TO MONITOR.
[2020-03-20 08:07] VITALS: BP 165/85
--- NOTE | 2020-03-20 11:15 | NUR ---
PT WITH DIFFICULTY EMPTYING BLADDER. PAGE PLACED TO BAL [place] APRN AND NOTIFIED OF PT INABILITY TO COMPLETE VOIDING. TELEPHONE ORDER RECD TO PLACE INDWELLING HURT CATHETER. 16FR HURT CATHETER INSERTED BY STERILE TECHNIQUE. 1100ML OF CLEAR YELLOW URINE EMPTIED. 10ML NORMAL SALINE USED TO INFLATE STABILIZATION BALLOON. FALL PRECAUTIONS IN PLACE. BED IS IN THE LOWEST POSITION. CALL LIGHT AND BEDSIDE TABLE ARE WITHIN REACH. SIDE RAILS X 2. STAT LOCK PLACED TO RIGHT UPPER THIGH. PT DENIES FURTHER NEEDS. WILL CONT TO MONITOR.
[2020-03-20 12:04] VITALS: BP 136/58
--- NOTE | 2020-03-20 12:07 | NUR ---
PT WITH MODERATE AMOUNT OF DARK RED BLOOD NOTED COMING AROUND CATHETER TUBING AT INSERTION SITE. PT DENIES PRESENCE OF PAIN AT THIS TIME. PT ANSWERS ALL QUESTIONS APPROPRIATELY AND STATES THAT HE IS NOT CURRENTLY EXPERIENCING ANY PAIN. FAMILY IS AT BEDSIDE. WILL NOTIFY BAL [place] APRN. BED IS IN THE LOWEST POSITION. CALL LIGHT AND BEDSIDE TABLE ARE WITIHN REACH. SIDE RAILS X [address] WILL CONT TO MONITROR.
--- NOTE | 2020-03-20 13:51 | NUR ---
OT NOTE: PT REQUESTED TO HOLD A FEW MIN IN AMB BEFORE GETTING HIM UP..HOWEVER, UPON RETURN TO ROOM, PT WAS GETTING CATH. MERY HERNANDEZ, OTR/L
[2020-03-20] MEDS ORDERED: FLOMAX0.4 MG PO (15:39)
[2020-03-20] MEDS ORDERED: AUGMENTIN 875-11 TAB PO (15:39)
--- NOTE | 2020-03-20 15:39 | MORECARE ---
CASE MANAGEMENT DISCHARGE SUMMARY PATIENT: SOURAV KIRKPATRICK UNIT: [id number] ADM DATE: 03/14/20 AGE: 85 : 37 SEX: M ROOM/BED: D.2229 AUTHOR: ROMI,DOC PHYSICIAN: REFERRING PHYSICIAN: MIYA CHAVES MD DATE OF SERVICE: 03/20/20 Discharge Plan Patient Name: SOURAV KIRKPATRICK Facility: [facility]:[place] : 1935 Planned Disposition: Anticipated Discharge Date: Discharge Date: Expected LOS: Initial Reviewer: [email or web address] Initial Review Date: 03/14/2020 Generated: 03/20/20 4:38 pm Comments DCP- Discharge Planning Updated by [id number]: Leyla Leija on 03/20/20 2:[address] Patient Name: SOURAV KIRKPATRICK Admission Status: ER Accout number: [id number] Admission Date: 03-14-2020 : 1935 Admission Diagnosis:FRACTURE OF NASAL BONES, INIT ENCNTR FOR CLOSED FRACTUR Attending: ANDIE, Current LOS: 6 Anticipated DC Date: Planned Disposition: Primary Insurance: MEDICARE A & B Discharge Planning Comments: CM MET WITH PATIENT AND HIS SON WHO WILL BE STAYING WITH HIM THE NEXT COUPLE WEEKS. PATIENT WANTS TO GO HOME AND START THERAPY AT HOME. HE IS CURRENTLY ON SERVICES WITH [facility]. I CALLED AND SPOKE WITH DELILAH AT [facility] AND THEY WILL GET HOME HEALTH AND UPHOLSTERER OUTSIDE'S FOR HOME CARE STARTED FOR HIM. I TALKED WITH PATIENT AND HIS SON AND THEY ARE IN AGREEMENT WITH THE PLAN. PLAN FOR DC TO HOME AND TRANSITION FROM HOSPICE TO HOME HEALTH. WOULD LIKE TO DC TODAY, STATES HIS IS HOME FROM THE HOSPITAL AND HE WANTS TO SEE HER. CM TO FOLLOW AND ASSIST NEEDED. Electrical Maintenance Man: Leyla Leija DCP- Discharge Planning Updated by [id number]: Leyla Leija on 03/19/20 2:[address] Patient Name: SOURAV KIRKPATRICK Admission Status: ER Accout number: [id number] Admission Date: 03-14-2020 : 1935 Admission Diagnosis:FRACTURE OF NASAL BONES, INIT ENCNTR FOR CLOSED FRACTUR Attending: ANDIE, Current LOS: 5 Anticipated DC Date: Planned Disposition: Primary Insurance: MEDICARE A & B Discharge Planning Comments: PATIENT WOULD BE APPROPRIATE FOR [facility], [facility] CAN ACCEPT HIM WHEN HES MEDICALLY STABLE. Electrical Maintenance Man: Leyla Leija DCP- Discharge Planning Updated by [id number]: Leyla Leija on 03/17/20 12:[address] Patient Name: SOURAV KIRKPATRICK Admission Status: ER Accout number: [id number] Admission Date: 03-14-2020 : 1935 Admission Diagnosis: Attending: ANDIE, Current LOS: 3 Anticipated DC Date: Planned Disposition: Primary Insurance: MEDICARE A & B Discharge Planning Comments: CM met with patient AND HIS SON at bedside after explaining CM role and obtaining verbal consent. CM discussed availability / needs of home health, REHAB and medical equipment. STATES HE HAS DME AND HAS [facility] AT HOME. HE IS UNSURE OF HIS DC PLAN. STATES UNSURE IF HE IS RESUMING HOSPICE OR WILL NEED HH OR REHAB. HE ASKED ME TO TALK WITH HIS SON SOURAV AND GAVE ME HIS NUMBER [phone]. I WILL TALK WITH SON TO GET A BETTER IDEA OF THE DC PLAN. I WILL FOLLOW AND ASSIST NEEDED. Electrical Maintenance Man: Leyla Leija DCPIA - Discharge Planning Initial Assessment Updated by [id number]: Leyla Leija on 03/17/20 1:54 pm * Is the patient Alert and Oriented? Yes * PCP SAAVEDRA * Pharmacy [facility] * Preadmission Environment Home with Family * ADLs Independent * Other Equipment CANE, WALKER, WHEEL CHAIR * List name and contact numbers for known caregivers / representatives who currently or will assist patient after discharge: LUIS A BENJAMIN, * Community resources currently utilized Hospice Home * Please name any agencies selected above. [facility] * Additional services required to return to the preadmission environment? No * Can the patient safely return to the preadmission environment? Yes * Has this patient been hospitalized within the prior 30 days at any hospital? No Last DP export: 03/19/20 2:42 p Patient Name: SOURAV KIRKPATRICK Page [id number] at 1530 All edits/amendments must be made on the electronic document DICTATION DATE: 03/20/201538 CORONARY CLINICAL SPECIALIST: SEBLE 03/20/205 RPT#: [id number] DC DATE: STATUS: ADM IN [facility] [address] [place] [address] END OF REPORT
[2020-03-20] MEDS ORDERED: NICODERM CQ1 EAC3 TOPICAL (16:30)
--- NOTE | 2020-03-20 17:30 | NUR ---
ALL DISCHARGE INSTRUCTIONS COVERED WITH PT AND PT SON. PT AND PT SON DENY FURTHER QUESTIONS/CONCERNS/NEEDS AT THIS TIME. HURT CATHETER CARE EDUCATION GIVEN TO PT SON. PT SON VERBALIZES UNDERSTANDING. (3) LEG BAGS GIVEN TO PT FOR HOME USE. PIV TO RIGHT FA REMOVED WITH CATHETER TIP INTACT. DRESSING APPLIED. ALL DISCHARGE PAPERS SIGNED BY PT SON AT PT REQUEST. PT SON TO NOTIFY THIS NURSE WHEN READY FOR TRANSPORT FROM ROOM.
--- NOTE | 2020-03-20 17:52 | NUR ---
PT TRANSPORTED FROM FLOOR VIA WHEELCHAIR. PT DENIES FURTHER QUESTIONS/CONCERNS AT THIS TIME. PT THANKS THIS NURSE FOR CARE GIVEN DURING THIS SHIFT.
--- NOTE | 2020-03-21 09:22 | MORECARE ---
CASE MANAGEMENT DISCHARGE SUMMARY PATIENT: SOURAV KIRKPATRICK UNIT: [id number] ADM DATE: 03/14/20 AGE: 85 : 37 SEX: M ROOM/BED: D.2229 AUTHOR: ROMI,DOC PHYSICIAN: REFERRING PHYSICIAN: MIYA CHAVES MD DATE OF SERVICE: 03/21/20 Discharge Plan Patient Name: SOURAV KIRKPATRICK Facility: [facility]:[place] : 1935 Planned Disposition: Anticipated Discharge Date: Discharge Date: 03/20/2020 Expected LOS: Initial Reviewer: [id number] Initial Review Date: 03/14/2020 Generated: 03/21/20 10:21 am Comments DCP- Discharge Planning Updated by [id number]: Leyla Leija on 03/20/20 2:[address] Patient Name: SOURAV KIRKPATRICK Admission Status: ER Accout number: [id number] Admission Date: 03-14-2020 : 1935 Admission Diagnosis:FRACTURE OF NASAL BONES, INIT ENCNTR FOR CLOSED FRACTUR Attending: ANDIE, Current LOS: 6 Anticipated DC Date: Planned Disposition: Primary Insurance: MEDICARE A & B Discharge Planning Comments: CM MET WITH PATIENT AND HIS SON WHO WILL BE STAYING WITH HIM THE NEXT COUPLE WEEKS. PATIENT WANTS TO GO HOME AND START THERAPY AT HOME. HE IS CURRENTLY ON SERVICES WITH [facility]. I CALLED AND SPOKE WITH DELILAH AT [facility] AND THEY WILL GET HOME HEALTH AND FIELD CONTACT TECHNICIAN'S FOR HOME CARE STARTED FOR HIM. I TALKED WITH PATIENT AND HIS SON AND THEY ARE IN AGREEMENT WITH THE PLAN. PLAN FOR DC TO HOME AND TRANSITION FROM HOSPICE TO HOME HEALTH. WOULD LIKE TO DC TODAY, STATES HIS IS HOME FROM THE HOSPITAL AND HE WANTS TO SEE HER. CM TO FOLLOW AND ASSIST NEEDED. Emergency Management System Director: Leyla Leija DCP- Discharge Planning Updated by [email or web address]: Leyla Leija on 03/19/20 2:[address] Patient Name: SOURAV KIRKPATRICK Admission Status: ER Accout number: [id number] Admission Date: 03-14-2020 : 1935 Admission Diagnosis:FRACTURE OF NASAL BONES, INIT ENCNTR FOR CLOSED FRACTUR Attending: ANDIE, Current LOS: 5 Anticipated DC Date: Planned Disposition: Primary Insurance: MEDICARE A & B Discharge Planning Comments: PATIENT WOULD BE APPROPRIATE FOR [facility], [facility] CAN ACCEPT HIM WHEN HES MEDICALLY STABLE. Emergency Management System Director: Leyla Leija DCP- Discharge Planning Updated by [id number]: Leyla Liss on 03/17/20 12:[address] Patient Name: SOURAV KIRKPATRICK Admission Status: ER Accout number: [id number] Admission Date: 03-14-2020 : 1935 Admission Diagnosis: Attending: ANDIE, Current LOS: 3 Anticipated DC Date: Planned Disposition: Primary Insurance: MEDICARE A & B Discharge Planning Comments: CM met with patient AND HIS SON at bedside after explaining CM role and obtaining verbal consent. CM discussed availability / needs of home health, REHAB and medical equipment. STATES HE HAS DME AND HAS [facility] AT HOME. HE IS UNSURE OF HIS DC PLAN. STATES UNSURE IF HE IS RESUMING HOSPICE OR WILL NEED HH OR REHAB. HE ASKED ME TO TALK WITH HIS SON SOURAV AND GAVE ME HIS NUMBER [phone]. I WILL TALK WITH SON TO GET A BETTER IDEA OF THE DC PLAN. I WILL FOLLOW AND ASSIST NEEDED. Emergency Management System Director: Leyla Leija DCPIA - Discharge Planning Initial Assessment Updated by [email or web address]: Leyla Leija on 03/17/20 1:54 pm * Is the patient Alert and Oriented? Yes * PCP SAAVEDRA * Pharmacy [facility] * Preadmission Environment Home with Family * ADLs Independent * Other Equipment CANE, WALKER, WHEEL CHAIR * List name and contact numbers for known caregivers / representatives who currently or will assist patient after discharge: LUIS A BENJAMIN, * Community resources currently utilized Hospice Home * Please name any agencies selected above. [facility] * Additional services required to return to the preadmission environment? No * Can the patient safely return to the preadmission environment? Yes * Has this patient been hospitalized within the prior 30 days at any hospital? No Coverage Notice Reviewer: [id number] - Leyla Leija Notice Issued Date-Time: 03/20/2020 16:51 Notice Type: IM Discharge Notice Notice Delivered To: Patient Relationship to Patient: Saw Offbearer Name: Delivery Method: HAND - Hand Delivered Yadi Days: Prior Verbal Notification: Recipient Understood Notice: Yes Recipient Signature: Yes Med Rec Note Co-signed by Attending: Coverage Notice Comment: Last DP export: 03/20/20 2:39 p Patient Name: SOURAV KIRKPATRICK Page [id number] at 0922 All edits/amendments must be made on the electronic document DICTATION DATE: 03/21/20921 WATER SERVER: SEBLE 03/21/20921 RPT#: [id number] DC DATE:03/20/20 STATUS: DIS IN [address] [place] [address] END OF REPORT
== END 2020-03-20 18:31 | disposition home health service (06) | DRG 640 ==
LOC: D.ER 22:14 → D.EDHOLD 03-14 01:20 → D.MS 03-14 01:20
PROVIDERS: Emergency Medicine; Family Medicine; Family Medicine Adult Medicine; ADMIT Family Medicine; ATTEND Family Medicine
DX: E87.1 Hypo-osmolality and hyponatremia (principal); G93.41 Metabolic encephalopathy; J18.9 Pneumonia, unspecified organism; F17.203 Nicotine dependence unspecified, with withdrawal; R04.2 Hemoptysis; S02.2XXA Fracture of nasal bones, initial encounter for closed fracture; M75.101 Unspecified rotator cuff tear or rupture of right shoulder, not specified as traumatic; W19.XXXA Unspecified fall, initial encounter; I25.10 Atherosclerotic heart disease of native coronary artery without angina pectoris; E11.65 Type 2 diabetes mellitus with hyperglycemia; M19.90 Unspecified osteoarthritis, unspecified site; D64.9 Anemia, unspecified; E83.42 Hypomagnesemia; S01.21XA Laceration without foreign body of nose, initial encounter; I10 Essential (primary) hypertension; F03.90 Unspecified dementia, unspecified severity, without behavioral disturbance, psychotic disturbance, mood disturbance, and anxiety; S00.93XA Contusion of unspecified part of head, initial encounter; Z72.89 Other problems related to lifestyle; I95.1 Orthostatic hypotension; R26.89 Other abnormalities of gait and mobility; G93.89 Other specified disorders of brain

== ENCOUNTER 2020-03-23 14:15 | Inpatient (IN) | payer MEDICARE, BC ==
[~2020-03-23] VITALS: Ht 182.9 cm; Wt 95.3 kg
[~2020-03-23 14:15] MED LIST changes: +AUGMENTIN 875-11 TAB PO; +CRESTOR10 MG PO; +ENTRESTO 49 MG1 EACH PO; +LEXAPRO10 MG PO; +NICODERM CQ1 EAC3 TOPICAL; +PROSCAR5 MG PO
[2020-03-23 15:18] LABS: BASOPHILS 0.1 % (0-2); EOSINOPHILS 1.2 % (0-7); HEMATOCRIT 29.3 % (42.0-54.0); HEMOGLOBIN 9.8 g/dL (13.5-17.5); IMMATURE GRANULOCYTES 0.2 % (0-5); LYMPHOCYTES 7.8 % (15-50); MCH 29.3 pg (26.0-34.0); MCHC 33.4 g/dL (31.0-37.0); MCV 87.7 fL (80.0-100.0); NEUTROPHILS 83.7 % (40-80); PLATELET COUNT 301 10x3/uL (130-400); RBC 3.34 10x6/uL (4.20-6.10); RDW 12.8 % (11.5-14.5); WBC 9.9 10x3/uL (4.8-10.8)
[2020-03-23 15:30] LABS: CALC OSMOLALITY 259 mosm/kg (275-300); CALCIUM 8.7 mg/dL (8.5-10.1); CARBON DIOXIDE 31.3 mmol/L (21.0-32.0); CHLORIDE - SERUM 94 mmol/L (98-107); POTASSIUM - SERUM 4.1 mmol/L (3.5-5.1); SODIUM 126 mmol/L (136-145); UREA NITROGEN 14 mg/dL (7-18); eGFR NON AFRICAN AMERICAN 76 mL/min (90-120)
[2020-03-23 15:36] LABS: ALBUMIN 2.9 g/dL (3.4-5.0); ALKALINE PHOSPHATASE 67 U/L (30-120); ALT (SGPT) 16 U/L (10-68); BILIRUBIN - TOTAL 0.27 mg/dL (0.2-1.3); PROTEIN - SERUM 6.6 g/dL (6.4-8.2)
[2020-03-23 15:38] LABS: GLUCOSE 200 mg/dL (74-106)
[2020-03-23 16:48] LABS: APTT 24.6 SECONDS (22.8-39.4); PROTIME 13.2 SECONDS (11.6-15.0)
[2020-03-23 17:08] LABS: CKMB 0.9 U/L (0.0-3.6); CREATINE KINASE 65 UL (21-232); PRO BNP 2616 pg/mL (0-450); TROPONIN-I 0.024 ng/mL (0.000-0.060)
[2020-03-23 17:13] LABS: BILIRUBIN NEGATIVE (NEGATIVE); KETONE NEGATIVE (NEGATIVE); NITRITE NEGATIVE (NEGATIVE); UROBILINOGEN NORMAL mg/dL (< 2); WHITE CELLS - URINE RARE HPF (0-1)
[2020-03-23 18:25] VITALS: BP 123/59; BMI 28.5
--- NOTE | 2020-03-23 19:00 | NUR ---
BEDSIDE REPORT RECEIVED AND CARE OF PT ASSUMED. PT LYING IN LOW BRASWELL'S POSITION VISITING WITH FAMILY MEMBER. IV TO LEFT FA PATENT WITH 1/2 NS INFUSING AT 50 ML/HR. HURT CATHETER DRAINING TO GRAVITY WITH YELLOW URINE IN COLLECTION BAG. LOTS OF BRUISING ON ARMS. SUTURES INTACT ON BRIDGE OF NOSE. WILL MONITOR FOR NEEDS.
--- NOTE | 2020-03-23 20:21 | NUR ---
HS MEDICATIONS GIVEN. FSBS 180 THIS CHECK REQUIRING COVERAGE WITH 2 UNITS OF INSULIN PER SLIDING SCALE. WILL CONTINUE TO MONITOR FOR NEEDS.
--- NOTE | 2020-03-23 20:30 | NUR ---
GAVE ORANGE JUICE FOR HS SNACK.
--- NOTE | 2020-03-23 20:59 | NUR ---
Rehab Note- Acute Inpatient Rehab prescreen order received. We followed the patient on his last hospitalization. He now presents back to the acute hospital & continues to have an acute work up. Will continue to follow at this time. Thank you for this referral! Denia Mendoza RN Clinical Liaison, [facility] Rehab
[2020-03-23 21:08] VITALS: BP 133/67
--- NOTE | 2020-03-23 22:37 | NUR ---
BEN KIRKPATRICK JR (POA) JUST CALLED TO CHECK ON HIS DAD. HE STATES THAT PT NEEDS REHAB HE DID VERY POORLY THE FEW DAYS HE WAS AT HOME...UNABLE TO CARE FOR HIMSELF AND INCONTINENT.
[2020-03-24 01:22] VITALS: BP 155/73
[2020-03-24 05:30] VITALS: BP 127/61
[2020-03-24 05:46] LABS: BASOPHILS 0.2 % (0-2); EOSINOPHILS 1.4 % (0-7); HEMATOCRIT 27.4 % (42.0-54.0); HEMOGLOBIN 9.2 g/dL (13.5-17.5); IMMATURE GRANULOCYTES 0.1 % (0-5); LYMPHOCYTES 10.9 % (15-50); MCH 29.4 pg (26.0-34.0); MCHC 33.6 g/dL (31.0-37.0); MCV 87.5 fL (80.0-100.0); MEAN PLATELET VOLUME 9.2 fL (7.4-10.4); MONOCYTES 9.2 % (2-11); NEUTROPHILS 78.2 % (40-80); PLATELET COUNT 306 10x3/uL (130-400); RBC 3.13 10x6/uL (4.20-6.10); RDW 12.9 % (11.5-14.5); WBC 10.8 10x3/uL (4.8-10.8)
[2020-03-24 06:22] LABS: % SATURATION 10 % (15-55); IRON 26 ug/dl (35-150); TOTAL IRON BIND CAPACITY 246 ug/dl (260-445); UNSAT IRON BIND CAPACITY 220 ug/dl (150-375)
[2020-03-24 06:34] LABS: ALBUMIN 2.7 g/dL (3.4-5.0); ALKALINE PHOSPHATASE 61 U/L (30-120); ALT (SGPT) 17 U/L (10-68); BILIRUBIN - TOTAL 0.27 mg/dL (0.2-1.3); CALCIUM 8.5 mg/dL (8.5-10.1); CARBON DIOXIDE 28.8 mmol/L (21.0-32.0); CHLORIDE - SERUM 96 mmol/L (98-107); CREATININE - SERUM 0.8 mg/dL (0.6-1.3); FERRITIN 69 ng/mL (3-244); PROTEIN - SERUM 6.1 g/dL (6.4-8.2); SODIUM 128 mmol/L (136-145); eGFR NON AFRICAN AMERICAN > 90 mL/min (90-120)
[2020-03-24 06:35] LABS: CALC OSMOLALITY 255 mosm/kg (275-300); GLUCOSE 96 mg/dL (74-106); UREA NITROGEN 10 mg/dL (7-18)
--- NOTE | 2020-03-24 07:41 | NUR ---
PATIENT IN BED, DENIES NEEDS AT THIS TIME. WANTS TO CONTINUE TO REST. BED LOW POSITION, CALL LIGHT IN REACH. FREE FROM SIGNS OF DISTRESS. WILL CONTINUE TO MONITOR.
[2020-03-24 09:05] VITALS: BP 131/59
[2020-03-24 12:47] VITALS: BP 118/58
[2020-03-24 12:53] VITALS: BMI 28.5
[2020-03-24 15:00] VITALS: BP 131/53
[2020-03-24 16:23] VITALS: Ht 182.9 cm; Wt 95.3 kg
--- NOTE | 2020-03-24 19:00 | NUR ---
BEDSIDE REPORT RECEIVED AND CARE OF PT ASSUMED. PT LYING IN SUPINE POSITION TALKING ON THE PHONE. IV TO LEFT FA PATENT WITH NS INFUSING AT 50 ML/HR. HURT CATHETER DRAINING TO GRAVITY WITH YELLOW URINE IN COLLECTION BAG. WILL MONITOR FOR NEEDS.
--- NOTE | 2020-03-24 20:00 | NUR ---
HS MEDICATIONS GIVEN. FSBS 140 THIS CHECK REQUIRING NO COVERAGE PER SLIDING SCALE. GAVE MIRALAX MIXED WITH 4 OUNCES OF ORANGE JUICE. WILL CONTINUE TO MONITOR CLOSELY FOR NEEDS.
[2020-03-24 20:31] VITALS: BP 127/62
[2020-03-25 00:29] VITALS: BP 133/58
[2020-03-25 04:00] VITALS: BP 144/71
[2020-03-25 05:07] LABS: BASOPHILS 0.2 % (0-2); EOSINOPHILS 1.6 % (0-7); HEMATOCRIT 27.1 % (42.0-54.0); HEMOGLOBIN 8.8 g/dL (13.5-17.5); IMMATURE GRANULOCYTES 0.2 % (0-5); LYMPHOCYTES 10.2 % (15-50); MCH 28.8 pg (26.0-34.0); MCHC 32.5 g/dL (31.0-37.0); MCV 88.6 fL (80.0-100.0); MONOCYTES 7.8 % (2-11); PLATELET COUNT 320 10x3/uL (130-400); RBC 3.06 10x6/uL (4.20-6.10); RDW 12.9 % (11.5-14.5); WBC 10.4 10x3/uL (4.8-10.8)
[2020-03-25 05:13] LABS: ALBUMIN 2.6 g/dL (3.4-5.0); ALKALINE PHOSPHATASE 60 U/L (30-120); ALT (SGPT) 15 U/L (10-68); BILIRUBIN - TOTAL 0.21 mg/dL (0.2-1.3); CALC OSMOLALITY 252 mosm/kg (275-300); CALCIUM 8.2 mg/dL (8.5-10.1); CARBON DIOXIDE 28.9 mmol/L (21.0-32.0); CHLORIDE - SERUM 92 mmol/L (98-107); CREATININE - SERUM 0.9 mg/dL (0.6-1.3); GLUCOSE 120 mg/dL (74-106); POTASSIUM - SERUM 4.1 mmol/L (3.5-5.1); PROTEIN - SERUM 6.1 g/dL (6.4-8.2); SODIUM 126 mmol/L (136-145); UREA NITROGEN 11 mg/dL (7-18); eGFR NON AFRICAN AMERICAN 85 mL/min (90-120)
--- NOTE | 2020-03-25 06:55 | NUR ---
RESTING IN BED WITH EYES CLOSED. RESPIRATIONS EVEN AND UNLABORED. UP WITH PHYSICAL THERAPY. WEARS GLASSES. IV TO LEFT FOREARM, NS INFUSING @ 50ML/HR. SITE PATENT WITHOUT REDNESS OR SWELLING. MULTIPLE BRUISES AND ABRASIONS TO FACE, ARMS, LEGS. MISSING MULTIPLE TEETH D/T FALL AT HOME RECENTLY. CALL LIGHT IN REACH. BEDALARM ON. WILL CONTINUE TO MONITOR.
[2020-03-25 08:23] VITALS: BP 136/65
--- NOTE | 2020-03-25 10:18 | NUR ---
I have reviewed this patient and I concur with the Shift Assessment completed by the Licensed Practical Nurse today this shift.
[2020-03-25 11:54] VITALS: BP 117/63
[2020-03-25 13:13] LABS: CALC OSMOLALITY 256 mosm/kg (275-300); CALCIUM 8.1 mg/dL (8.5-10.1); CARBON DIOXIDE 30.4 mmol/L (21.0-32.0); CHLORIDE - SERUM 93 mmol/L (98-107); CREATININE - SERUM 0.8 mg/dL (0.6-1.3); GLUCOSE 156 mg/dL (74-106); POTASSIUM - SERUM 4.6 mmol/L (3.5-5.1); SODIUM 127 mmol/L (136-145); UREA NITROGEN 11 mg/dL (7-18); eGFR NON AFRICAN AMERICAN > 90 mL/min (90-120)
--- NOTE | 2020-03-25 16:21 | NUR ---
OT NOTE: PT REMAINS CONFUSED TODAY. UPON ENTERING ROOM, PT WAS SITTING UP ON EOB(UNSURE HOW HE GOT TO THIS POSITION HE HAS BEEN REQUIRING ASSIST). HOWEVER, PT STATING THAT HE WAS GOING TO WALK TO BATHROOM BUT HAS "ALL OF THESE TUBES"..EXPLAINED TO PT THAT HE DOES NOT NEED TO GET UP BY HIMSELF, HE MAY FALL. PTS ALARM WAS ON BED AND ALSO TURNED ON, BUT APPARENTLY DID NOT GO OFF WHEN PT GOT TO EOB. ATTEMPTED TO ASSIST PT WITH AMB WITH ASSIST OF PHYS THERAPY, HOWEVER, ONCE IN STANDING PT REPORTED THAT HE WAS TOO DIZZY. OBTAINED BS COMMODE AND PT WAS ABLE TO TRANSFER WITH MOD ASSIST AND USE OF WALKER. PROVIDED PT WITH APPROX 10 MIN.. GAVE HIM CALL LIGHT BUT AFRAID TO LEAVE UNATTENDED DUE TO CONFUSION. PT UNABLE TO HAVE A BM. STOOD WITH MOD ASSIST AND TOILET HYGIENE PERFORMED WITH MAX ASSIST. ASSISTED BACK TO BED WITH WALKER AND MOD ASSIST. PROVIDED PT WITH WASH CLOTH AND HE WAS ABLE TO WASH FACE AND HANDS WITH SET UP. PROVIDED INFO AGAIN REGARDING CALL LIGHT AND ASKING FOR ASSIST TO PREVENT FALLS. PT REPORTS THAT HE IS AFRAID, HE FEELS LIKE HES "LOOSING IT". WILL CONT TO WORK WITH PT, HOWEVER, RECOMMEND IP REHAB, HE IS VERY WEAK AND UNSAFE AT THIS TIME. REQUIRES EXT ASSIST WITH MOST ADLS. MERY HERNANDEZ, OTR/L
[2020-03-25 17:34] VITALS: BP 118/64
--- NOTE | 2020-03-25 17:54 | NUR ---
SITTING UP IN BED EATING SUPPER. NO C/O PAIN. NO S/S OF ACUTE DISTRESS NOTED. DENIES ANY NEEDS AT THIS TIME. CALL LIGHT IN REACH. WILL CONTINUE TO MONITOR. BED ALARM ON.
[2020-03-25 21:26] VITALS: BP 118/46
--- NOTE | 2020-03-25 23:44 | NUR ---
PT IN BED, NO NEEDS NOTED, RESPIRATIONS EVEN/UNLABORED, SAFETY PRECAUTIONS IN PLACE, FLUIDS/CALL LIGHT WITHIN REACH, IV PATENT, NS RUNNING AT KVO
[2020-03-26] VITALS: BP 123/60
[2020-03-26 04:00] VITALS: BP 129/58
[2020-03-26 05:00] LABS: BASOPHILS 0.1 % (0-2); EOSINOPHILS 1.9 % (0-7); HEMATOCRIT 25.7 % (42.0-54.0); HEMOGLOBIN 8.5 g/dL (13.5-17.5); IMMATURE GRANULOCYTES 0.2 % (0-5); MCH 29.2 pg (26.0-34.0); MCHC 33.1 g/dL (31.0-37.0); MCV 88.3 fL (80.0-100.0); MONOCYTES 6.2 % (2-11); NEUTROPHILS 79.6 % (40-80); PLATELET COUNT 292 10x3/uL (130-400); RBC 2.91 10x6/uL (4.20-6.10); RDW 12.9 % (11.5-14.5); WBC 10.5 10x3/uL (4.8-10.8)
[2020-03-26 05:11] LABS: ALBUMIN 2.5 g/dL (3.4-5.0); ALKALINE PHOSPHATASE 59 U/L (30-120); ALT (SGPT) 16 U/L (10-68); BILIRUBIN - TOTAL 0.21 mg/dL (0.2-1.3); CALC OSMOLALITY 254 mosm/kg (275-300); CALCIUM 8.1 mg/dL (8.5-10.1); CARBON DIOXIDE 32.9 mmol/L (21.0-32.0); CHLORIDE - SERUM 93 mmol/L (98-107); CREATININE - SERUM 0.8 mg/dL (0.6-1.3); GLUCOSE 123 mg/dL (74-106); POTASSIUM - SERUM 4.1 mmol/L (3.5-5.1); PROTEIN - SERUM 5.9 g/dL (6.4-8.2); SODIUM 127 mmol/L (136-145); UREA NITROGEN 11 mg/dL (7-18); eGFR NON AFRICAN AMERICAN > 90 mL/min (90-120)
--- NOTE | 2020-03-26 06:55 | NUR ---
RESTING IN BED WITH EYES OPEN. NO C/O PAIN. NO S/S OF ACUTE DISTRESS NOTED. DENIES ANY NEEDS AT THIS TIME. BED ALARM ON. CALL LIGHT IN REACH. WILL CONTINUE TO MONITOR.
--- NOTE | 2020-03-26 07:15 | MORECARE ---
CASE MANAGEMENT DISCHARGE SUMMARY PATIENT: SOURAV KIRKPATRICK UNIT: [id number] ADM DATE: 03/23/20 AGE: 85 : 37 SEX: M ROOM/BED: D.2213 AUTHOR: RADHA LLANOS PHYSICIAN: REFERRING PHYSICIAN: VOLODYMYR COLLIER MD DATE OF SERVICE: 03/26/20 Discharge Plan Patient Name: SOURAV KIRKPATRICK Facility: [facility]:[place] : 1935 Planned Disposition: Inpatient Rehab Anticipated Discharge Date: Discharge Date: Expected LOS: Initial Reviewer: [id number] Initial Review Date: 03/23/2020 Generated: 03/26/20 8:14 am Patient Name: SOURAV KIRKPATRICK Page 79077 at 0715 All edits/amendments must be made on the electronic document DICTATION DATE: 03/26/20714 SEEDLING PULLER: SEBLE 03/26/20714 RPT#: [id number] DC DATE: STATUS: ADM IN [facility] [address] [place] [address] END OF REPORT
--- NOTE | 2020-03-26 07:22 | MORECARE ---
CASE MANAGEMENT DISCHARGE SUMMARY PATIENT: SOURAV KIRKPATRICK UNIT: [id number] ADM DATE: 03/23/20 AGE: 85 : 37 SEX: M ROOM/BED: D.2213 AUTHOR: RADHA LLANOS PHYSICIAN: REFERRING PHYSICIAN: VOLODYMYR COLLIER MD DATE OF SERVICE: 03/26/20 Discharge Plan Patient Name: SOURAV KIRKPATRICK [facility] : 1935 Planned Disposition: Inpatient Rehab Anticipated Discharge Date: Discharge Date: Expected LOS: Initial Reviewer: [email or web address] Initial Review Date: 03/23/2020 Generated: 03/26/20 8:21 am DCPIA - Discharge Planning Initial Assessment Updated by [email or web address]: Trina Palacios on 03/26/20 7:15 am * PCP SAAVEDRA * Pharmacy [facility] * Preadmission Environment Home with Family * ADLs Independent * Equipment Cane Rolling Walker Walker Wheelchair * List name and contact numbers for known caregivers / representatives who currently or will assist patient after discharge: SOURAV [phone] * Community resources currently utilized Hospice Home * Please name any agencies selected above. [facility] * Additional services required to return to the preadmission environment? Yes * Can the patient safely return to the preadmission environment? No * Has this patient been hospitalized within the prior 30 days at any hospital? Yes Last DP export: 03/26/20 6:15 a Patient Name: SOURAV KIRKPATRICK Page 41593 at 0722 All edits/amendments must be made on the electronic document DICTATION DATE: 03/26/20720 LENS MATCHER: SEBLE 03/26/20720 RPT#: [id number] DC DATE: STATUS: ADM IN [facility] [address] [place] [address] END OF REPORT
--- NOTE | 2020-03-26 07:28 | MORECARE ---
CASE MANAGEMENT DISCHARGE SUMMARY PATIENT: ESTRADA KIRKPATRICK UNIT: [id number] ADM DATE: 03/23/20 AGE: 85 : 37 SEX: M ROOM/BED: D.2213 AUTHOR: RADHA LLANOS PHYSICIAN: REFERRING PHYSICIAN: VOLODYMYR COLLIER MD DATE OF SERVICE: 03/26/20 Discharge Plan Patient Name: ESTRADA KIRKPATRICK Facility: [facility]:[place] : 1935 Planned Disposition: Inpatient Rehab Anticipated Discharge Date: Discharge Date: Expected LOS: Initial Reviewer: [email or web address] Initial Review Date: 03/23/2020 Generated: 03/26/20 8:27 am Comments DCP- Discharge Planning Updated by [id number]: Trina Palacios on 03/26/20 6:[address] LATE ENTRY 03/25/20 @ 1300 Patient Name: ESTRADA KIRKPATRICK Admission Status: ER Accout number: [id number] Admission Date: 03-23-2020 : 1935 Admission Diagnosis:HYPO-OSMOLALITY AND HYPONATREMIA Attending: VOLODYMYR DE LA GARZA Current LOS: 3 Anticipated DC Date: Planned Disposition: Inpatient Rehab Primary Insurance: MEDICARE A & B Discharge Planning Comments: CM spoke with the son, Estrada ( CLARISA) at length about his discharge plan. Estrada stated that he lives with his significant other and she helps take care of him, but at this time it is too much. He was discharged home last time with [facility]. The family wanted him to go to inpatient rehab, but the patient did not want that. This time Estrada states that his dad is agreeable to do go. In patient rehab will accept the patient per Denia. Estrada is speaking with his siblings to determine what the next level of care he might need and where. I gave him [facility] rep (Harjit) number for him to call and explore that option. NIESHA was done over the phone with CLARISA. Plan is for patient to go to inpatient rehab when he is able to go. Dr Munroe is also aware that he is accepted to [facility] when he is stable . CM will continue to follow and assist as needed Forest Botany Instructor: Trina Palacios DCPIA - Discharge Planning Initial Assessment Updated by [id number]: Trina Palacios on 03/26/20 7:15 am * PCP SAAVEDRA * Pharmacy [facility] * Preadmission Environment Home with Family * ADLs Independent * Equipment Cane Rolling Walker Walker Wheelchair * List name and contact numbers for known caregivers / representatives who currently or will assist patient after discharge: ESTRADA [phone] * Community resources currently utilized Hospice Home * Please name any agencies selected above. [facility] * Additional services required to return to the preadmission environment? Yes * Can the patient safely return to the preadmission environment? No * Has this patient been hospitalized within the prior 30 days at any hospital? Yes Coverage Notice Reviewer: [id number] - Trina Palacios Notice Issued Date-Time: 03/25/2020 13:00 Notice Type: Patient Choice Letter Notice Delivered To: Family Member Relationship to Patient: Power of Nurse Practitioner Home Assessments Pin Sticker Name: estrada ( son) Delivery Method: PHONE - Phone Yadi Days: Prior Verbal Notification: Yes Recipient Understood Notice: Recipient Signature: Med Rec Note Co-signed by Attending: Coverage Notice Comment: over phone with Estrada inpatient rehab at [facility] Last DP export: 03/26/20 6:22 a Patient Name: ESTRADA KIRKPATRICK Page [phone] at 0728 All edits/amendments must be made on the electronic document DICTATION DATE: 03/26/20727 SANDER PORTABLE MACHINE: SEBLE 03/26/20727 RPT#: [id number] DC DATE: STATUS: ADM IN [facility] [address] [place] [address] END OF REPORT
[2020-03-26 08:53] VITALS: BP 123/53
[2020-03-26 12:01] VITALS: BP 142/56
--- NOTE | 2020-03-26 13:58 | NUR ---
OT NOTE: PT SEEN IN AM.. MOD ASSIST WITH BED MOB TO EOB. CONFUSED BUT LESS ANXIOUS TODAY. ABLE TO PERFORM SIMPLE GROOMING TASKS AND UE AROM EXS WHILE ON EOB. P.T. CAME INTO ROOM AND PT WAS ABLE TO STAND WITH WALKER AND MOD ASSIST, HOWEVER,UNABLE TO STAND GREATER THAN A FEW SECONDS BEFORE NEEDING TO SIT DOWN. I THINK PT IS VERY FEARFUL OF FALLING AND THATS THE BIGGEST OBSTACLE IN BEGINNING AMBULATION. PT SEEN IN PM. IN ROOM.. SHE REPORTS THAT HE ATE A LARGE LUNCH OF MASHED POTATOES THAT SHE BROUGHT FROM HOME AND PT WAS ALSO DRINKING AN INSURE. PT MORE ALERT AND LESS CONFUSED IN PM. HOWEVER, DOES NOT RECALL SEEING AND SPEAKING WITH THE DOCTOR WHO HAD JUST COME BY A BIT EARLIER. DISCUSSED REHAB AND IMPORTANCE OF REHAB TO IMPROVE INDEP. MERY HERNANDEZ, OTR/L
--- NOTE | 2020-03-26 15:07 | NUR ---
I have reviewed this patient and I concur with the Shift Assessment completed by the Licensed Practical Nurse today this shift.
[2020-03-26 16:23] VITALS: BP 126/56
[2020-03-26 20:00] VITALS: BP 118/64
--- NOTE | 2020-03-26 20:15 | NUR ---
REPORT RECIEVED AND ROUNDING COMPLETE. PATIENT LAYING IN BED IN LOW FOWLERS, LEFT HAND PIV PATENT AND RUNNING FLUIDS AT THIS TIME. STITCHES TO HIS NOSE AND FACIAL BRUISING FROM A RECENT FALL. BED ALARM ON. HURT CATH IN PLACE WITH SCANT AMOUNT OF URINE IN THE BAG. NO DISTRESS NOTED. CALL LIGHT WIHTIN REACH AND BED IN LOWEST LOCKED POSITION. NO NEEDS VOICED BY PATIENT AND NO PAIN EXPRESSED AT THIS TIME.
[2020-03-27 04:00] VITALS: BP 117/58
[2020-03-27 05:06] LABS: BASOPHILS 0.1 % (0-2); EOSINOPHILS 1.1 % (0-7); HEMATOCRIT 27.5 % (42.0-54.0); HEMOGLOBIN 8.9 g/dL (13.5-17.5); IMMATURE GRANULOCYTES 0.2 % (0-5); LYMPHOCYTES 9.5 % (15-50); MCH 28.8 pg (26.0-34.0); MCHC 32.4 g/dL (31.0-37.0); NEUTROPHILS 83.1 % (40-80); PLATELET COUNT 332 10x3/uL (130-400); RBC 3.09 10x6/uL (4.20-6.10); RDW 13.2 % (11.5-14.5)
[2020-03-27 05:09] LABS: WBC 13.6 10x3/uL (4.8-10.8)
[2020-03-27 05:18] LABS: ALBUMIN 2.8 g/dL (3.4-5.0); ALKALINE PHOSPHATASE 64 U/L (30-120); ALT (SGPT) 18 U/L (10-68); BILIRUBIN - TOTAL 0.33 mg/dL (0.2-1.3); CALC OSMOLALITY 256 mosm/kg (275-300); CALCIUM 8.4 mg/dL (8.5-10.1); CARBON DIOXIDE 30.5 mmol/L (21.0-32.0); CHLORIDE - SERUM 94 mmol/L (98-107); CREATININE - SERUM 0.8 mg/dL (0.6-1.3); GLUCOSE 118 mg/dL (74-106); POTASSIUM - SERUM 4.2 mmol/L (3.5-5.1); PROTEIN - SERUM 6.4 g/dL (6.4-8.2); SODIUM 128 mmol/L (136-145); UREA NITROGEN 11 mg/dL (7-18); eGFR NON AFRICAN AMERICAN > 90 mL/min (90-120)
[2020-03-27 09:22] VITALS: BP 127/70
[2020-03-27 13:19] VITALS: BP 112/73
--- NOTE | 2020-03-27 14:16 | NUR ---
OT NOTE: PT SLIGHTLY BETTER TODAY. CONT WITH SOME CONFUSION BUT BETTER THAN YESTERDAY. PT WAS ABLE TO PROVIDE INFO REGARDING HIS CHILDREN AND WHERE THEY LIVED, ALSO HIS AND HER RECENT SURGERY AND EVEN THE DATE OF HER PREVIOUS SURGERY, ALLL WITHOUT LOOSING TRAIN OF THOUGHT. BED MOB WITH MIN ASSIST TO GET TO EOB. SIT TO STAND WITH MIN ASSIST AND WALKER, HOWEVER, PT IMMEDIATELY WANTED TO LIE DOWN IN BED DUE TO DIZZINESS/WEAKNESS. HAD PT SIT ON SIDE OF BED VS LIEING DOWN AND THEN WE PERFORMED APPROX 5 MORE SIT TO STANDS WITH EACH ATTEMPT TOLERATING LONGER STANDING TIME. PT IS VERY FEARFUL OF FALLING DUE TO RECENT FALLS AT HOME. ABLE TO PERFORM UE/LE AROM EXS WHILE SITTING ON EOB; CONT TO REQUIRE EXT ASSIST WITH TOILETING AND LE DRESSING. MERY HERNANDEZ, OTR/L [phone]
[2020-03-27 17:42] VITALS: BP 127/64
--- NOTE | 2020-03-27 18:13 | NUR ---
CALL WAS PLACED TO . BEN SAMANIEGO AT THIS TIME WHICH IS THE POA FOR THIS PT. BEN SAMANIEGO INQUIRED ABOUT WHY DEMETRA WAS UNABLE TO GET INFORMATION ON PT. THIS NURSE INFORMED HIM THAT DEMETRA DID NOT HAVE THE SECURITY PASSCODE ON THE ACCOUNT NOR WAS SHE LISTED THE BUSINESS AND SERVICES INSTRUCTOR. THIS NURSE THEN INFORMED SON THAT DEMETRA STATED " I WILL CALL MOM TO GET THE PASS CODE." DION THEN STATED THAT I HAD FAXED OVER [employer] PAPER WORK SHOWING THAT ME AND MY BROTHER SHARE POA. AND THAT SHE WOULD CALL BACK. PASSCODE WAS GIVEN TO POA AT [facility] TIME.
--- NOTE | 2020-03-27 19:10 | NUR ---
I have reviewed this patient and I concur with the Shift Assessment completed by the Licensed Practical Nurse today this shift.
[2020-03-27 20:00] VITALS: BP 172/76
--- NOTE | 2020-03-28 03:21 | NUR ---
I have reviewed this patient and I concur with the Shift Assessment completed by the Licensed Practical Nurse today this shift.
[2020-03-28 04:00] VITALS: BP 133/80
[2020-03-28 05:48] LABS: BASOPHILS 0.2 % (0-2); EOSINOPHILS 1.4 % (0-7); HEMOGLOBIN 8.7 g/dL (13.5-17.5); IMMATURE GRANULOCYTES 0.2 % (0-5); LYMPHOCYTES 8.2 % (15-50); MCH 28.6 pg (26.0-34.0); MCHC 32.2 g/dL (31.0-37.0); MCV 88.8 fL (80.0-100.0); MONOCYTES 6.3 % (2-11); NEUTROPHILS 83.7 % (40-80); PLATELET COUNT 338 10x3/uL (130-400); RBC 3.04 10x6/uL (4.20-6.10); RDW 13.2 % (11.5-14.5)
[2020-03-28 05:59] LABS: ALBUMIN 2.7 g/dL (3.4-5.0); ALKALINE PHOSPHATASE 63 U/L (30-120); ALT (SGPT) 14 U/L (10-68); BILIRUBIN - TOTAL 0.41 mg/dL (0.2-1.3); CALC OSMOLALITY 254 mosm/kg (275-300); CALCIUM 8.2 mg/dL (8.5-10.1); CARBON DIOXIDE 30.3 mmol/L (21.0-32.0); CHLORIDE - SERUM 93 mmol/L (98-107); CREATININE - SERUM 0.8 mg/dL (0.6-1.3); GLUCOSE 100 mg/dL (74-106); POTASSIUM - SERUM 3.7 mmol/L (3.5-5.1); PROTEIN - SERUM 6.3 g/dL (6.4-8.2); SODIUM 127 mmol/L (136-145); UREA NITROGEN 12 mg/dL (7-18); eGFR NON AFRICAN AMERICAN > 90 mL/min (90-120)
--- NOTE | 2020-03-28 07:15 | NUR ---
REC'D IN BED WITH NOTED CONFUSION. RESP EVEN AND UNLABORED WITH NO DISTRESS NOTED. CAN MAKE SOME NEEDS AND WANTS KNOWN. INCONT OF BOWEL WITH DMITRY CARE GIVEN PRN AND Q 2 HRS. ASSESSMENT COMPLETED. C/L IN REACH AT BEDSIDE.
[2020-03-28] MEDS ORDERED: MUCINEX600 MG PO (08:52)
[2020-03-28] MEDS ORDERED: Xopenex 0.63 MG INH UPD (08:52)
[2020-03-28] MEDS ORDERED: TESSALON PERLE100 MG PO (08:52)
[2020-03-28] MEDS ORDERED: THERMOTABS 1 GM1 GM PO (08:53)
[2020-03-28] MEDS ORDERED: COLACE100 MG PO (08:53)
[2020-03-28] MEDS ORDERED: MIRALAX17 GM PO (08:53)
[2020-03-28] MEDS ORDERED: HUMULIN R100 UNIT/1 SC (08:53)
[2020-03-28] MEDS ORDERED: AUGMENTIN 875-11 TAB PO (08:57)
[2020-03-28] MEDS ORDERED: FERRLECIT62.5 MG/2 IVPB (08:57)
[2020-03-28 09:29] VITALS: BP 129/59
[2020-03-28 10:36] LABS: BILIRUBIN NEGATIVE (NEGATIVE); KETONE NEGATIVE (NEGATIVE); NITRITE NEGATIVE (NEGATIVE); UROBILINOGEN NORMAL mg/dL (< 2)
[2020-03-28 10:37] LABS: WHITE CELLS - URINE OCC HPF (0-1)
[2020-03-28 10:38] LABS: BACTERIA T HPF (NONE SEEN); EPITHELIAL CELLS OCC /hpf (0-5)
--- NOTE | 2020-03-28 10:55 | NUR ---
I have reviewed this patient and I concur with the Shift Assessment completed by the Licensed Practical Nurse today this shift.
--- NOTE | 2020-03-28 11:50 | MORECARE ---
CASE MANAGEMENT DISCHARGE SUMMARY PATIENT: ESTRADA KIRKPATRICK UNIT: [id number] ADM DATE: 03/23/20 AGE: 85 : 37 SEX: M ROOM/BED: D.2213 AUTHOR: ROMI,DOC PHYSICIAN: REFERRING PHYSICIAN: VOLODYMYR COLLIER MD DATE OF SERVICE: 03/28/20 Discharge Plan Patient Name: ESTRADA KIRKPATRICK Facility: [facility]:[place] : 1935 Planned Disposition: Inpatient Rehab Anticipated Discharge Date: Discharge Date: Expected LOS: Initial Reviewer: [email or web address] Initial Review Date: 03/23/2020 Generated: 03/28/20 12:49 pm Comments DCP- Discharge Planning Updated by [email or web address]: Trina Palacios on 03/28/20 10:[address] late entry 03/26/20 1400 I spoke with Nikki patient's daughter, update given and she requested for a doctor to call her and give update. Mona Brown APN, was given her info and she was going to have Dr Munroe call her. DCP- Discharge Planning Updated by [email or web address]: Trina Palacios on 03/26/20 6:[address] LATE ENTRY 03/25/20 @ 1300 Patient Name: ESTRADA KIRKPATRICK Admission Status: ER Accout number: [id number] Admission Date: 03-23-2020 : 1935 Admission Diagnosis:HYPO-OSMOLALITY AND HYPONATREMIA Attending: VOLODYMYR DE LA GARZA Current LOS: 3 Anticipated DC Date: Planned Disposition: Inpatient Rehab Primary Insurance: MEDICARE A & B Discharge Planning Comments: VU spoke with the son, Estrada ( POA) at length about his discharge plan. Estrada stated that he lives with his significant other and she helps take care of him, but at this time it is too much. He was discharged home last time with [facility]. The family wanted him to go to inpatient rehab, but the patient did not want that. This time Estrada states that his dad is agreeable to do go. In patient rehab will accept the patient per Denia. Estrada is speaking with his siblings to determine what the next level of care he might need and where. I gave him [facility]'s rep (Harjit) number for him to call and explore that option. NIESHA was done over the phone with POA. Plan is for patient to go to inpatient rehab when he is able to go. Dr Munroe is also aware that he is accepted to [facility] when he is stable . CM will continue to follow and assist as needed Analytics Director: Trina Palacios DCPIA - Discharge Planning Initial Assessment Updated by [email or web address]: Trina Palacios on 03/26/20 7:15 am * PCP SAAVEDRA * Pharmacy [facility] * Preadmission Environment Home with Family * ADLs Independent * Equipment Cane Rolling Walker Walker Wheelchair * List name and contact numbers for known caregivers / representatives who currently or will assist patient after discharge: ESTRADA [phone] * Community resources currently utilized [facility] * Please name any agencies selected above. [facility] * Additional services required to return to the preadmission environment? Yes * Can the patient safely return to the preadmission environment? No * Has this patient been hospitalized within the prior 30 days at any hospital? Yes Coverage Notice Reviewer: [id number] - Trina Palacios Notice Issued Date-Time: 03/25/2020 13:00 Notice Type: Patient Choice Letter Notice Delivered To: Family Member Relationship to Patient: Power of Insurance Policy Issue Clerk Supervisor Fiber Locking Name: estrada ( son) Delivery Method: PHONE - Phone Yadi Days: Prior Verbal Notification: Yes Recipient Understood Notice: Recipient Signature: Med Rec Note Co-signed by Attending: Coverage Notice Comment: over phone with Estrada inpatient rehab at [facility] Last DP export: 03/26/20 6:28 a Patient Name: ESTRADA KIRKPATRICK Page [id number] at 1150 All edits/amendments must be made on the electronic document DICTATION DATE: 03/28/20 1149 MANIFOLD BUILDER: SEBLE 03/28/20 1149 RPT#: [id number] DC DATE: STATUS: ADM IN [facility] [address] [place] [address] END OF REPORT
--- NOTE | 2020-03-28 11:57 | MORECARE ---
CASE MANAGEMENT DISCHARGE SUMMARY PATIENT: SOURAV KIRKPATRICK UNIT: [id number] ADM DATE: 03/23/20 AGE: 85 : 37 SEX: M ROOM/BED: D.2213 AUTHOR: ROMI,DOC PHYSICIAN: REFERRING PHYSICIAN: VOLODYMYR COLLIER MD DATE OF SERVICE: 03/28/20 Discharge Plan Patient Name: SOURAV KIRKPATRICK Facility: [facility]:[place] : 1935 Planned Disposition: Inpatient Rehab Anticipated Discharge Date: Discharge Date: Expected LOS: Initial Reviewer: [email or web address] Initial Review Date: 03/23/2020 Generated: 03/28/20 12:56 pm Comments DCP- Discharge Planning Updated by [email or web address]: Trina Palacios on 03/28/20 10:[address] Called Hakeem ( son) to give update and to let him know that they were going to discharge to inpatient rehab today. Hakeem stated that his dad had an episode last night where he received a phone call stating that his dad was requesting him to come get him "before they kill them" per the son he also called his neighbors, live in roommate, and he is unsure that his dad is safe to be discharged at this time. I called Nan Coy APN to let her know about the son's concerns and ask that they call him. Nan took his number and was going to call him. CM to follow and assist as needed DCP- Discharge Planning Updated by [id number]: Trina Palacios on 03/28/20 10:[address] late entry 03/26/20 1400 I spoke with Nikki patient's daughter, update given and she requested for a doctor to call her and give update. Mona Brown APN, was given her info and she was going to have Dr Munroe call her. DCP- Discharge Planning Updated by [email or web address]: Trina Palacios on 03/26/20 6:[address] LATE ENTRY 03/25/20 @ 1300 Patient Name: SOURAV KIRKPATRICK Admission Status: ER Accout number: [id number] Admission Date: 03-23-2020 : 1935 Admission Diagnosis:HYPO-OSMOLALITY AND HYPONATREMIA Attending: VOLODYMYR DE LA GARZA Current LOS: 3 Anticipated DC Date: Planned Disposition: Inpatient Rehab Primary Insurance: MEDICARE A & B Discharge Planning Comments: CM spoke with the son, Sourav ( CLARISA) at length about his discharge plan. Sourav stated that he lives with his significant other and she helps take care of him, but at this time it is too much. He was discharged home last time with [facility]. The family wanted him to go to inpatient rehab, but the patient did not want that. This time Sourav states that his dad is agreeable to do go. In patient rehab will accept the patient per Denia. Sourav is speaking with his siblings to determine what the next level of care he might need and where. I gave him [facility] rep (Harjit) number for him to call and explore that option. NIESHA was done over the phone with CLARISA. Plan is for patient to go to inpatient rehab when he is able to go. Dr Munroe is also aware that he is accepted to [facility] when he is stable . CM will continue to follow and assist as needed Auto Heater Mechanic: Trina Palacios DCPIA - Discharge Planning Initial Assessment Updated by [email or web address]: Trina Palacios on 03/26/20 7:15 am * PCP SAAVEDRA * Pharmacy [facility] * Preadmission Environment Home with Family * ADLs Independent * Equipment Cane Rolling Walker Walker Wheelchair * List name and contact numbers for known caregivers / representatives who currently or will assist patient after discharge: SOURAV [phone] * Community resources currently utilized [facility] * Please name any agencies selected above. [facility] * Additional services required to return to the preadmission environment? Yes * Can the patient safely return to the preadmission environment? No * Has this patient been hospitalized within the prior 30 days at any hospital? Yes Coverage Notice Reviewer: [id number] - Trina Palacios Notice Issued Date-Time: 03/25/2020 13:00 Notice Type: Patient Choice Letter Notice Delivered To: Family Member Relationship to Patient: Power of Major Gifts Manager Sheet Metal Duct Installer Apprentice Name: sourav ( son) Delivery Method: PHONE - Phone Yadi Days: Prior Verbal Notification: Yes Recipient Understood Notice: Recipient Signature: Med Rec Note Co-signed by Attending: Coverage Notice Comment: over phone with Sourav inpatient rehab at [facility] Last DP export: 03/28/20 10:50 a Patient Name: SOURAV KIRKPATRICK Page [id number] at 1157 All edits/amendments must be made on the electronic document DICTATION DATE: 03/28/201155 NECKTIE TURNER: SEBLE 03/28/201155 RPT#: [id number] DC DATE: STATUS: ADM IN [facility] [address] [place] [address] END OF REPORT
--- NOTE | 2020-03-28 15:46 | NUR ---
Nutrition Follow-up: Patient was seen by SHEET METAL SHOP SUPERVISOR today- Recommended current diet order. Diet: Regular [place] Thick Liquids and Mech Soft with Ground Meat PO intake: PO intake not being recorded recently. Last BM: 03/24/20. Wt: 210# (03/24/20) Meds noted: ferrlecit, miralax, SSI. Labs noted: Na 127(L), Alb 2.7(L) Recommend continue PO diet per SHEET METAL SHOP SUPERVISOR recommendations. Encourage PO intake. Offer oral nutrition supplements. RD following.
[2020-03-28 16:34] VITALS: BP 136/72
--- NOTE | 2020-03-28 19:10 | NUR ---
RECEIVED REPORT, ASSUMED CARE, BREATHING EVEN UNLABORED, CALL LIGHT IN REACH, NO S/S OF DISTRESS NOTED, REQUEST PAIN MEDICATION TYLENOL GIVEN PER BLU GILMORE TO CELESTINE, IV SL PER PT REQUEST STATED HE WOULD PULL IT OUT IF HE HAS TO KEEP IT HOOKED UP.
[2020-03-28 20:00] VITALS: BP 145/78
[2020-03-28 22:47] LABS: UDS - AMPHET NEGATIVE QUAL (NEGATIVE); UDS - BARB NEGATIVE QUAL (NEGATIVE); UDS - BENZO NEGATIVE QUAL (NEGATIVE); UDS - COCAINE NEGATIVE QUAL (NEGATIVE); UDS - OPIATE NEGATIVE QUAL (NEGATIVE); UDS - PCP NEGATIVE QUAL (NEGATIVE); UDS - THC NEGATIVE QUAL (NEGATIVE)
--- NOTE | 2020-03-28 23:54 | NUR ---
I have reviewed this patient and I concur with the Shift Assessment completed by the Licensed Practical Nurse today this shift.
[2020-03-29 04:00] VITALS: BP 132/60
[2020-03-29 07:17] LABS: BASOPHILS 0.2 % (0-2); EOSINOPHILS 1.4 % (0-7); HEMATOCRIT 26.1 % (42.0-54.0); HEMOGLOBIN 8.6 g/dL (13.5-17.5); IMMATURE GRANULOCYTES 0.2 % (0-5); LYMPHOCYTES 8.6 % (15-50); MCH 29.1 pg (26.0-34.0); MCV 88.2 fL (80.0-100.0); MEAN PLATELET VOLUME 8.7 fL (7.4-10.4); MONOCYTES 7.3 % (2-11); NEUTROPHILS 82.3 % (40-80); PLATELET COUNT 303 10x3/uL (130-400); RBC 2.96 10x6/uL (4.20-6.10); RDW 13.1 % (11.5-14.5); WBC 11.3 10x3/uL (4.8-10.8)
[2020-03-29 07:46] LABS: ALBUMIN 2.6 g/dL (3.4-5.0); ALKALINE PHOSPHATASE 64 U/L (30-120); ALT (SGPT) 16 U/L (10-68); BILIRUBIN - TOTAL 0.38 mg/dL (0.2-1.3); CALC OSMOLALITY 250 mosm/kg (275-300); CARBON DIOXIDE 28.4 mmol/L (21.0-32.0); CHLORIDE - SERUM 93 mmol/L (98-107); CREATININE - SERUM 0.7 mg/dL (0.6-1.3); GLUCOSE 105 mg/dL (74-106); POTASSIUM - SERUM 3.9 mmol/L (3.5-5.1); PROTEIN - SERUM 5.5 g/dL (6.4-8.2); SODIUM 125 mmol/L (136-145); UREA NITROGEN 9 mg/dL (7-18); eGFR NON AFRICAN AMERICAN > 90 mL/min (90-120)
[2020-03-29 09:21] VITALS: BP 134/72
[2020-03-29] MEDS ORDERED: SEROQUEL25 MG PO (13:13)
[2020-03-29 14:25] VITALS: BP 126/66
--- NOTE | 2020-03-29 15:26 | MORECARE ---
CASE MANAGEMENT DISCHARGE SUMMARY PATIENT: SOURAV KIRKPATRICK UNIT: [id number] ADM DATE: 03/23/20 AGE: 85 : 37 SEX: M ROOM/BED: D.2213 AUTHOR: ROMIDOC PHYSICIAN: REFERRING PHYSICIAN: VOLODYMYR COLLIER MD DATE OF SERVICE: 03/29/20 Discharge Plan Patient Name: SOURAV KIRKPATRICK Facility: [facility]:[place] : 1935 Planned Disposition: Inpatient Rehab Anticipated Discharge Date: Discharge Date: Expected LOS: Initial Reviewer: [email or web address] Initial Review Date: 03/23/2020 Generated: 03/29/20 4:25 pm Comments DCP- Discharge Planning Updated by [email or web address]: Shabnam Kirkpatrick on 03/29/20 2:[address] DC order for inpatient rehab. I notified Denia Mendoza, child welfare caseworker for inpatient rehab, and she states they will accept today. DCP- Discharge Planning Updated by [email or web address]: Trina Palacios on 03/28/20 10:[address] Called Hakeem ( son) to give update and to let him know that they were going to discharge to inpatient rehab today. Hakeem stated that his dad had an episode last night where he received a phone call stating that his dad was requesting him to come get him "before they kill them" per the son he also called his neighbors, live in roommate, and he is unsure that his dad is safe to be discharged at this time. I called Nan Coy APN to let her know about the son's concerns and ask that they call him. Nan took his number and was going to call him. CM to follow and assist as needed DCP- Discharge Planning Updated by [email or web address]: Trina Palacios on 03/28/20 10:[address] late entry 03/26/20 1400 I spoke with Nikki patient's daughter, update given and she requested for a doctor to call her and give update. Mona Brown APN, was given her info and she was going to have Dr Munroe call her. DCP- Discharge Planning Updated by [email or web address]: Trina Palacios on 03/26/20 6:[address] LATE ENTRY 03/25/20 @ 1300 Patient Name: SOURAV KIRKPATRICK Admission Status: ER Accout number: [id number] Admission Date: 03-23-2020 : 1935 Admission Diagnosis:HYPO-OSMOLALITY AND HYPONATREMIA Attending: VOLODYMYR DE LA GARZA Current LOS: 3 Anticipated DC Date: Planned Disposition: Inpatient Rehab Primary Insurance: MEDICARE A & B Discharge Planning Comments: CM spoke with the son, Sourav ( POA) at length about his discharge plan. Sourav stated that he lives with his significant other and she helps take care of him, but at this time it is too much. He was discharged home last time with [facility]. The family wanted him to go to inpatient rehab, but the patient did not want that. This time Sourav states that his dad is agreeable to do go. In patient rehab will accept the patient per Denia. Sourav is speaking with his siblings to determine what the next level of care he might need and where. I gave him [facility]'s rep (Harjit) number for him to call and explore that option. NIESHA was done over the phone with CLARISA. Plan is for patient to go to inpatient rehab when he is able to go. Dr Munroe is also aware that he is accepted to [facility] when he is stable . CM will continue to follow and assist as needed Water Aerobics Instructor: Trina Palacios [facility] - Discharge Planning Initial Assessment Updated by [id number]: Trina Palacios on 03/26/20 7:15 am * PCP SAAVEDRA * Pharmacy [facility] * Preadmission Environment Home with Family * ADLs Independent * Equipment Cane Rolling Walker Walker Wheelchair * List name and contact numbers for known caregivers / representatives who currently or will assist patient after discharge: SOURAV [phone] * Community resources currently utilized [facility] * Please name any agencies selected above. [facility] * Additional services required to return to the preadmission environment? Yes * Can the patient safely return to the preadmission environment? No * Has this patient been hospitalized within the prior 30 days at any hospital? Yes Coverage Notice Reviewer: [id number] - Trina Palacios Notice Issued Date-Time: 03/25/2020 13:00 Notice Type: Patient Choice Letter Notice Delivered To: Family Member Relationship to Patient: Power of Cash Room Clerk Livestock Sales Representative Name: sourav ( son) Delivery Method: PHONE - Phone Yadi Days: Prior Verbal Notification: Yes Recipient Understood Notice: Recipient Signature: Med Rec Note Co-signed by Attending: Coverage Notice Comment: over phone with Sourav inpatient rehab at [facility] Last DP export: 03/28/20 10:57 a Patient Name: SOURAV KIRKPATRICK Page [id number] at 1526 All edits/amendments must be made on the electronic document DICTATION DATE: 03/29/201524 COMBINATION MACHINE TOOL SETTER: DM 03/29/201524 RPT#: [id number] DC DATE: STATUS: ADM IN [facility] [address] [place] [address] END OF REPORT
--- NOTE | 2020-03-29 15:45 | NUR ---
PATIENT VERBALIZED UNDERSTANDING OF DISCHARGE INSTRUCTIONS WITH [facility] DISCHARGED TO [facility] WITH REPORT GIVEN. STABLE AT TIME OF DISCHARGE.
--- NOTE | 2020-03-29 16:00 | MORECARE ---
CASE MANAGEMENT DISCHARGE SUMMARY PATIENT: SOURAV KIRKPATRICK UNIT: [id number] ADM DATE: 03/23/20 AGE: 85 : 37 SEX: M ROOM/BED: D.2213 AUTHOR: ROMI,DOC PHYSICIAN: REFERRING PHYSICIAN: VOLODYMYR COLLIER MD DATE OF SERVICE: 03/29/20 Discharge Plan Patient Name: SOURAV KIRKPATRICK Facility: [facility]:[place] : 1935 Planned Disposition: Inpatient Rehab Anticipated Discharge Date: Discharge Date: Expected LOS: Initial Reviewer: [email or web address] Initial Review Date: 03/23/2020 Generated: 03/29/20 4:59 pm Comments DCP- Discharge Planning Updated by [email or web address]: Ryan Sheikh on 03/29/20 2:[address] DC IMM delivered, explained, signed by the patient, and placed in chart. Signed form also left with the patient. DCP- Discharge Planning Updated by [email or web address]: Shabnam Kirkpatrick on 03/29/20 2:[address] DC order for inpatient rehab. I notified Denia Mendoza, pillowcase folder for inpatient rehab, and she states they will accept today. DCP- Discharge Planning Updated by [id number]: Trina Palacios on 03/28/20 10:[address] Called Hakeem ( son) to give update and to let him know that they were going to discharge to inpatient rehab today. Hakeem stated that his dad had an episode last night where he received a phone call stating that his dad was requesting him to come get him "before they kill them" per the son he also called his neighbors, live in roommate, and he is unsure that his dad is safe to be discharged at this time. I called Nan Coy APN to let her know about the son's concerns and ask that they call him. Nan took his number and was going to call him. CM to follow and assist as needed DCP- Discharge Planning Updated by [id number]: Trina Palacios on 03/28/20 10:[address] late entry 03/26/20 1400 I spoke with Nikki patient's daughter, update given and she requested for a doctor to call her and give update. Mona Brown APN, was given her info and she was going to have Dr Munroe call her. DCP- Discharge Planning Updated by [id number]: Trina Palacios on 03/26/20 6:[address] LATE ENTRY 03/25/20 @ 1300 Patient Name: SOURAV KIRKPATRICK Admission Status: ER Accout number: [id number] Admission Date: 03-23-2020 : 1935 Admission Diagnosis:HYPO-OSMOLALITY AND HYPONATREMIA Attending: VOLODYMYR DE LA GARZA Current LOS: 3 Anticipated DC Date: Planned Disposition: Inpatient Rehab Primary Insurance: MEDICARE A & B Discharge Planning Comments: CM spoke with the son, Sourav ( CLARISA) at length about his discharge plan. Sourav stated that he lives with his significant other and she helps take care of him, but at this time it is too much. He was discharged home last time with [facility]. The family wanted him to go to inpatient rehab, but the patient did not want that. This time Sourav states that his dad is agreeable to do go. In patient rehab will accept the patient per Denia. Sourav is speaking with his siblings to determine what the next level of care he might need and where. I gave him Bryan Loyola's rep (Harjit) number for him to call and explore that option. NIESHA was done over the phone with CLARISA. Plan is for patient to go to inpatient rehab when he is able to go. Dr Munroe is also aware that he is accepted to [facility] when he is stable . CM will continue to follow and assist as needed Heating And Ventilating Tender: Trina Palacios DCPIA - Discharge Planning Initial Assessment Updated by [id number]: Trina Palacios on 03/26/20 7:15 am * PCP SAAVEDRA * Pharmacy [facility] * Preadmission Environment Home with Family * ADLs Independent * Equipment Cane Rolling Walker Walker Wheelchair * List name and contact numbers for known caregivers / representatives who currently or will assist patient after discharge: SOURAV [phone] * Community resources currently utilized [facility] * Please name any agencies selected above. [facility] * Additional services required to return to the preadmission environment? Yes * Can the patient safely return to the preadmission environment? No * Has this patient been hospitalized within the prior 30 days at any hospital? Yes Coverage Notice Reviewer: [id number] - Trina Palacios Notice Issued Date-Time: 03/25/2020 13:00 Notice Type: Patient Choice Letter Notice Delivered To: Family Member Relationship to Patient: Power of Recorder Helper Gravity Prospecting Personal Care Aid Name: sourav ( son) Delivery Method: PHONE - Phone Yadi Days: Prior Verbal Notification: Yes Recipient Understood Notice: Recipient Signature: Med Rec Note Co-signed by Attending: Coverage Notice Comment: over phone with Sourav inpatient rehab at [facility] Reviewer: [id number] - Ryan Sheikh Notice Issued Date-Time: 03/29/2020 15:28 Notice Type: IM Discharge Notice Notice Delivered To: Patient Relationship to Patient: Self Personal Care Aid Name: Delivery Method: HAND - Hand Delivered Yadi Days: Prior Verbal Notification: Recipient Understood Notice: Yes Recipient Signature: Yes Med Rec Note Co-signed by Attending: Coverage Notice Comment: DC IMM delivered, explained, signed by the patient, and placed in chart. Signed form also left with the patient. Last DP export: 03/29/20 2:26 Patient Name: SOURAV KIRKPATRICK Page [id number] at 1600 All edits/amendments must be made on the electronic document DICTATION DATE: 03/29/20 1600 SKEINER: SEBLE 03/29/20 1600 RPT#: [id number] DC DATE: STATUS: ADM IN [facility] [address] [place] [address] END OF REPORT
--- NOTE | 2020-03-31 09:00 | MORECARE ---
CASE MANAGEMENT DISCHARGE SUMMARY PATIENT: SOURAV KIRKPATRICK UNIT: [id number] ADM DATE: 03/23/20 AGE: 85 : 37 SEX: M ROOM/BED: D.2213 AUTHOR: ROMI,DOC PHYSICIAN: REFERRING PHYSICIAN: VOLODYMYR COLLIER MD DATE OF SERVICE: 03/31/20 Discharge Plan Patient Name: SOURAV KIRKPATRICK Facility: [facility]:[place] : 1935 Planned Disposition: Inpatient Rehab Anticipated Discharge Date: Discharge Date: 03/29/2020 Expected LOS: Initial Reviewer: [email or web address] Initial Review Date: 03/23/2020 Generated: 03/31/20 9:59 am Comments DCP- Discharge Planning Updated by [id number]: Ryan Sheikh on 03/29/20 2:[address] DC IMM delivered, explained, signed by the patient, and placed in chart. Signed form also left with the patient. DCP- Discharge Planning Updated by [id number]: Shabnam Kirkpatrick on 03/29/20 2:[address] DC order for inpatient rehab. I notified Denia Mendoza, telephonic nurse case manager for inpatient rehab, and she states they will accept today. DCP- Discharge Planning Updated by [email or web address]: Trina Palacios on 03/28/20 10:[address] Called Hakeem ( son) to give update and to let him know that they were going to discharge to inpatient rehab today. Hakeem stated that his dad had an episode last night where he received a phone call stating that his dad was requesting him to come get him "before they kill them" per the son he also called his neighbors, live in roommate, and he is unsure that his dad is safe to be discharged at this time. I called Nan Coy APN to let her know about the son's concerns and ask that they call him. Nan took his number and was going to call him. CM to follow and assist as needed DCP- Discharge Planning Updated by [id number]: Trina Palacios on 03/28/20 10:[address] late entry 03/26/20 1400 I spoke with Nikki patient's daughter, update given and she requested for a doctor to call her and give update. Mona Brown APN, was given her info and she was going to have Dr Munroe call her. DCP- Discharge Planning Updated by [id number]: Trina Palacios on 03/26/20 6:[address] LATE ENTRY 03/25/20 @ 1300 Patient Name: SOURAV KIRKPATRICK Admission Status: ER Accout number: [id number] Admission Date: 03-23-2020 : 1935 Admission Diagnosis:HYPO-OSMOLALITY AND HYPONATREMIA Attending: VOLODYMYR DE LA GARZA Current LOS: 3 Anticipated DC Date: Planned Disposition: Inpatient Rehab Primary Insurance: MEDICARE A & B Discharge Planning Comments: CM spoke with the son, Sourav ( CLARISA) at length about his discharge plan. Sourav stated that he lives with his significant other and she helps take care of him, but at this time it is too much. He was discharged home last time with [facility]. The family wanted him to go to inpatient rehab, but the patient did not want that. This time Sourav states that his dad is agreeable to do go. In patient rehab will accept the patient per Denia. Sourav is speaking with his siblings to determine what the next level of care he might need and where. I gave him [facility] rep (Harjit) number for him to call and explore that option. NIESHA was done over the phone with CLARISA. Plan is for patient to go to inpatient rehab when he is able to go. Dr Munroe is also aware that he is accepted to [facility] at [facility] when he is stable . CM will continue to follow and assist as needed Music Promoter: Trina Palacios DCPIA - Discharge Planning Initial Assessment Updated by [id number]: Trina Palacios on 03/26/20 7:15 am * PCP SAAVEDRA * Pharmacy [facility] * Preadmission Environment Home with Family * ADLs Independent * Equipment Cane Rolling Walker Walker Wheelchair * List name and contact numbers for known caregivers / representatives who currently or will assist patient after discharge: SOURAV [phone] * Community resources currently utilized [facility] * Please name any agencies selected above. [facility] * Additional services required to return to the preadmission environment? Yes * Can the patient safely return to the preadmission environment? No * Has this patient been hospitalized within the prior 30 days at any hospital? Yes Coverage Notice Reviewer: [id number] - Trina Palacios Notice Issued Date-Time: 03/25/2020 13:00 Notice Type: Patient Choice Letter Notice Delivered To: Family Member Relationship to Patient: Power of Multi Skilled Operator Tongue Binder Name: sourav ( son) Delivery Method: PHONE - Phone Yadi Days: Prior Verbal Notification: Yes Recipient Understood Notice: Recipient Signature: Med Rec Note Co-signed by Attending: Coverage Notice Comment: over phone with Sourav inpatient rehab at [facility] Reviewer: [id number] - Ryan Sheikh Notice Issued Date-Time: 03/29/2020 15:28 Notice Type: IM Discharge Notice Notice Delivered To: Patient Relationship to Patient: Self Tongue Binder Name: Delivery Method: HAND - Hand Delivered Yadi Days: Prior Verbal Notification: Recipient Understood Notice: Yes Recipient Signature: Yes Med Rec Note Co-signed by Attending: Coverage Notice Comment: DC IMM delivered, explained, signed by the patient, and placed in chart. Signed form also left with the patient. Last DP export: 03/29/20 3:00 Patient Name: SOURAV KIRKPATRICK Page [id number] at 0900 All edits/amendments must be made on the electronic document DICTATION DATE: 03/31/20858 VAUDEVILLE ACTOR: SEBLE 03/31/20858 RPT#: [id number] DC DATE:03/29/20 STATUS: DIS IN [facility] [address] [place] [address] END OF REPORT
[2020-04-01 16:09] LABS: SPE - A/G RATIO 1.1 (0.7-1.7); SPE - ALBUMIN 2.9 g/dL (2.9-4.4); SPE - ALPHA-1 GLOBULIN 0.3 g/dL (0.0-0.4); SPE - ALPHA-2 GLOBULIN 0.9 g/dL (0.4-1.0); SPE - BETA GLOBULIN 0.8 g/dL (0.7-1.3); SPE - GAMMA GLOBULIN 0.7 g/dL (0.4-1.8); SPE - M-SPIKE Not Observed g/dL (Not Observed); SPE - TOTAL PROTEIN 5.5 g/dL (6.0-8.5)
== END 2020-03-29 15:45 | DRG 315 ==
LOC: D.ER 14:15 → D.MS 16:18
PROVIDERS: Family Medicine; Internal Medicine Hematology & Oncology; ADMIT Family Medicine Adult Medicine; ATTEND Family Medicine Adult Medicine
DX: I95.9 Hypotension, unspecified (principal); E87.1 Hypo-osmolality and hyponatremia; G72.81 Critical illness myopathy; F17.203 Nicotine dependence unspecified, with withdrawal; G93.89 Other specified disorders of brain; R55 Syncope and collapse; S02.2XXA Fracture of nasal bones, initial encounter for closed fracture; M19.90 Unspecified osteoarthritis, unspecified site; G31.9 Degenerative disease of nervous system, unspecified; N40.0 Benign prostatic hyperplasia without lower urinary tract symptoms; Z91.81 History of falling; G89.29 Other chronic pain; I10 Essential (primary) hypertension; R41.0 Disorientation, unspecified; R62.7 Adult failure to thrive; D50.9 Iron deficiency anemia, unspecified; E11.42 Type 2 diabetes mellitus with diabetic polyneuropathy; E11.65 Type 2 diabetes mellitus with hyperglycemia

== ENCOUNTER 2020-08-30 22:27 | Inpatient (IN) | payer MEDICARE, BC ==
[~2020-08-30] VITALS: Ht 182.9 cm; Wt 71.1 kg
[~2020-08-30 22:27] MED LIST changes: +COLACE100 MG PO; +DULCOLAX5 MG PO; +FERRLECIT62.5 MG/2 IVPB; +HUMULIN R100 UNIT/1 SC; +MELATONIN 3 MG1 TAB PO; +MILK OF MAGNESI30 ML PO; +MIRALAX17 GM PO; +MUCINEX600 MG PO; +PRISTIQ50 MG PO; +SEROQUEL25 MG PO; +TESSALON PERLE100 MG PO; +THERMOTABS 1 GM1 GM PO; +Xopenex 0.63 MG INH UPD
[2020-08-30 23:16] LABS: HEMATOCRIT 39.6 % (42.0-54.0); HEMOGLOBIN 12.8 g/dL (13.5-17.5); MCH 28.6 pg (26.0-34.0); MCHC 32.3 g/dL (31.0-37.0); MCV 88.4 fL (80.0-100.0); NEUTROPHILS 92.2 % (40-80); PLATELET COUNT 293 10x3/uL (130-400); RBC 4.48 10x6/uL (4.20-6.10); RDW 12.9 % (11.5-14.5); WBC 15.4 10x3/uL (4.8-10.8)
[2020-08-30 23:25] LABS: CALC OSMOLALITY 276 mosm/kg (275-300); CARBON DIOXIDE 29.2 mmol/L (21.0-32.0); CHLORIDE - SERUM 100 mmol/L (98-107); CREATININE - SERUM 0.8 mg/dL (0.6-1.3); GLUCOSE 120 mg/dL (74-106); POTASSIUM - SERUM 3.6 mmol/L (3.5-5.1); SODIUM 137 mmol/L (136-145); UREA NITROGEN 19 mg/dL (7-18); eGFR NON AFRICAN AMERICAN > 90 mL/min (90-120)
[2020-08-30 23:30] LABS: INR 1.19 (0.85-1.17)
[2020-08-30 23:39] LABS: ALBUMIN 2.8 g/dL (3.4-5.0); ALKALINE PHOSPHATASE 79 U/L (30-120); ALT (SGPT) 16 U/L (10-68); BILIRUBIN - TOTAL 0.93 mg/dL (0.2-1.3); C-REACTIVE PROTEIN 18.1 mg/dL (0.0-0.9); CREATINE KINASE 24 UL (21-232); LIPASE 100 U/L (73-393); MAGNESIUM - SERUM 1.6 mg/dL (1.8-2.4); PRO BNP 3090 pg/mL (0-450); PROTEIN - SERUM 7.2 g/dL (6.4-8.2); THYROID STIMULATING HORMONE 1.22 uIU/mL (0.36-3.74); TROPONIN-I < 0.017 ng/mL (0.000-0.060)
[2020-08-31 00:30] VITALS: BP 87/53
--- NOTE | 2020-08-31 03:54 | NUR ---
SPOKE WITH , HANG KIRKPATRICK, PASSCODE PROVIDED, UPDATE GIVEN. CONTACT NUMBERS PROVIDED: CELL [phone], HOME PHONE [phone].
[2020-08-31 04:34] VITALS: BP 115/52
[2020-08-31 07:28] VITALS: BP 104/56; BMI 21.3
[2020-08-31 08:07] LABS: ALBUMIN 2.3 g/dL (3.4-5.0); ALKALINE PHOSPHATASE 66 U/L (30-120); ALT (SGPT) 13 U/L (10-68); BILIRUBIN - TOTAL 0.49 mg/dL (0.2-1.3); CALC OSMOLALITY 279 mosm/kg (275-300); CALCIUM 8.4 mg/dL (8.5-10.1); CARBON DIOXIDE 27.6 mmol/L (21.0-32.0); CHLORIDE - SERUM 102 mmol/L (98-107); CREATININE - SERUM 0.8 mg/dL (0.6-1.3); GLUCOSE 119 mg/dL (74-106); MAGNESIUM - SERUM 1.8 mg/dL (1.8-2.4); POTASSIUM - SERUM 3.6 mmol/L (3.5-5.1); PROTEIN - SERUM 6.2 g/dL (6.4-8.2); SODIUM 138 mmol/L (136-145); UREA NITROGEN 22 mg/dL (7-18); eGFR NON AFRICAN AMERICAN > 90 mL/min (90-120)
[2020-08-31 08:13] LABS: HEMATOCRIT 33.9 % (42.0-54.0); MCH 28.6 pg (26.0-34.0); MCHC 32.4 g/dL (31.0-37.0); MCV 88.3 fL (80.0-100.0); MEAN PLATELET VOLUME 9.4 fL (7.4-10.4); NEUTROPHIL ABS# 18.37 10x3/uL (1.78-5.38); PLATELET COUNT 277 10x3/uL (130-400); RBC 3.84 10x6/uL (4.20-6.10); RDW 13.7 % (11.5-14.5); WBC 20.6 10x3/uL (4.8-10.8)
[2020-08-31 08:31] LABS: LYMPHOCYTES 4 % (15-50); NEUTROPHILS 96 % (40-80); PLATELET ESTIMATE NORMAL
--- NOTE | 2020-08-31 08:38 | NUR ---
PATIENT LYING SUPINE DISORIENTED TO TIME, PLACE AND SITUATION, RESPONDS TO VOICE, RESP LABORED AND UNEVEN, SIT PATIENT UP IN BED AND ADMINSITERED MEDICATIONS, PATIENT TOLERATED WITHOUT COMPLICATIONS, NO FURTHER NEEDS AT THIS TIME, CORBY TITUS
[2020-08-31 12:49] VITALS: BP 121/57
--- NOTE | 2020-08-31 19:00 | NUR ---
REPORT RECEIVED, PT CARE ASSUMED. PT SITTING UP IN BED, AAOX1, DISORIENTED TO PLACE, TIME, SITUATION. REQUESTED LEMON-GRINDSTONE ROSENDA, PROVIDED. DENIES ANY OTHER NEEDS AT THIS TIME. BED IN LOWEST, SRX3, CL AND URINAL WITHIN REACH. BED ALARM ON AND FUNCTIONING. CPOC.
--- NOTE | 2020-08-31 19:45 | NUR ---
ENTERED ROOM TO ADDRESS IV PUMP ALARM, PT ASKED, "DO YOU SMELL THAT?" THIS NURSE, IN FULL PPE WITH RESPIRATOR, ATTEMPTED TO EXPLAIN TO PT THAT SMELLS DO NOT CROSS THE FILTERS AND IT COULD NOT BE REMOVED D/T COVID PUI ISOLATION, ASKED WHAT THE SMELL WAS, PT EXCLAIMED, "GAS! IT SMELLS LIKE YOU HAVE THE GAS VALVES OPEN IN HERE! ARE YOU TRYING TO KILL ME?" ATTEMPTED TO REORIENT AND CALM PT, UNSUCCESSFULLY. PT STATES, "TAKE THAT OFF AND SMELL OR I'M GOING TO PUNCH YOU IN THE FUCKING FACE!" THIS NURSE ENSURED BED IN LOWEST, SRX3, CL AND URINAL WITHIN REACH, BED ALARM ON AND FUNCTIONING. RECEIVED NEW ORDERS, SEE EMAR.
[2020-08-31 20:00] VITALS: BP 113/55
[2020-09-01] VITALS: BP 105/55
[2020-09-01 04:00] VITALS: BP 141/88
[2020-09-01 05:55] LABS: BASOPHILS 0.1 % (0-2); EOSINOPHILS 0.8 % (0-7); HEMATOCRIT 32.9 % (42.0-54.0); HEMOGLOBIN 10.5 g/dL (13.5-17.5); IMMATURE GRANULOCYTES 0.1 % (0-5); LYMPHOCYTE ABS# 0.82 10x3/uL (1.32-3.57); LYMPHOCYTES 6.1 % (15-50); MCH 28.6 pg (26.0-34.0); MCHC 31.9 g/dL (31.0-37.0); MCV 89.6 fL (80.0-100.0); MEAN PLATELET VOLUME 9.2 fL (7.4-10.4); MONOCYTES 8.2 % (2-11); NEUTROPHIL ABS# 11.46 10x3/uL (1.78-5.38); NEUTROPHILS 84.7 % (40-80); PLATELET COUNT 275 10x3/uL (130-400); RBC 3.67 10x6/uL (4.20-6.10); RDW 13.7 % (11.5-14.5)
[2020-09-01 06:15] LABS: ALBUMIN 2.2 g/dL (3.4-5.0); ALKALINE PHOSPHATASE 62 U/L (30-120); ALT (SGPT) 13 U/L (10-68); CALCIUM 8.6 mg/dL (8.5-10.1); CARBON DIOXIDE 31.8 mmol/L (21.0-32.0); CHLORIDE - SERUM 105 mmol/L (98-107); CREATININE - SERUM 0.6 mg/dL (0.6-1.3); GLUCOSE 105 mg/dL (74-106); MAGNESIUM - SERUM 1.9 mg/dL (1.8-2.4); POTASSIUM - SERUM 3.4 mmol/L (3.5-5.1); SODIUM 139 mmol/L (136-145); eGFR NON AFRICAN AMERICAN > 90 mL/min (90-120)
[2020-09-01 06:17] LABS: CALC OSMOLALITY 278 mosm/kg (275-300); UREA NITROGEN 15 mg/dL (7-18)
[2020-09-01 06:28] LABS: WBC 13.5 10x3/uL (4.8-10.8)
[2020-09-01 08:43] VITALS: BP 106/56
--- NOTE | 2020-09-01 10:04 | NUR ---
PATIENT AAOX3, RESP EVEN AND NON LABORED, COUGH NON PRODUCTIVE, NO S/S OF DISTRESS, LEFT EYE REDDNED WITH DISCHARGE, WARM RAG APPLIED AND EYE DROPS ORDERED, MEDICATIONS ADMINISTRATED WITH NO COMPLICATIONS, LEMONADE ORDERED FOR LUNCH, NO FURTHER NEEDS AT THIS TIME, CORBY TITUS
[2020-09-01 12:20] VITALS: BP 103/54
--- NOTE | 2020-09-01 16:52 | NUR ---
CALLED FROM PRODUCTION SAMPLER TO GO TALK TO PATIENT. PATIENT HAS SOME CONFUSION AND THINKS THAT HE IS AT A CONVENTION HERE AT THE HOSPITAL. HE WANTS ME TO CALL HIS AND LET HER KNOW. HE KNOWS THAT HE WAS AT [facility].
[2020-09-01 16:57] VITALS: BP 133/77
[2020-09-01 17:07] LABS: LDH 183 U/L (85-227)
[2020-09-01 17:16] LABS: FERRITIN 2345 ng/mL (3-244)
--- NOTE | 2020-09-01 17:21 | NUR ---
SON FROM [place] TO CALL AND STATES HE HAS THE POA. I ASKED THAT HE FAX IT TO US SO WE MAY HAVE THIS ON FILE. I REVIEWED THE CHART WITH HIM AND WAS TOLD THAT PATIENT HAS BEEN LIVING AT [facility] SINCE LATE MARCH 2020 AND HAD TESTED + FOR THE VIRUS 06/03/20. HE ASKED THAT DR VITALE CALL HIM, I TOLD HIM THAT I WOULD GIVE DR VITALE HIS PHONE NUMBER TODAY. SON IS A [employer] CONSULTANT.
--- NOTE | 2020-09-01 17:46 | NUR ---
PATIENT FAMILY IS ASKING FOR HIM TO BE OFF ISOLATION DUE TO HAVING COVID IN MAY 2020, DR VITALE ORDERED LABS TO DETERMINE IF HE COULD BE CLEARED OF COVID ISOLATION, LAB RESULTS DETERMINE PATIENT HAS TO STAY ON COVID ISOLATION, DR VITALE NOTIFIED OF RESULTS, BLOOD CULTURE IS POSITIVE FOR GRAM COCCI
--- NOTE | 2020-09-01 18:00 | NUR ---
I have reviewed this patient and I concur with the Shift Assessment completed by the Licensed Practical Nurse today this shift.
[2020-09-01 20:00] VITALS: BP 116/64
--- NOTE | 2020-09-01 20:02 | NUR ---
pt lying in bed, frequent cough, not productive at this time. Pt awake alert but forgetful keeps offering nurse his [employer] chicken that his family brought him. Pt speaking to on phone and offered to phone to nurse to speak to his /SO nurse advised that due to isolation mask and face shield would need to call nurses station so nurse could hear her on the phone. Pt advised to call nurses station. No acute distress will continue to monitor
--- NOTE | 2020-09-01 20:20 | NUR ---
pt heard speaking to someone on the phone stating that he was sick and that we (nurses) weren't "doing any fing thing". Nurse and HOGSHEAD MAT INSPECTOR have been in pts room multiple times, no needs were voiced during this time. Per shift report pt had verbal aggression towards staff at night.
--- NOTE | 2020-09-01 21:36 | NUR ---
called and spoke to pt so/, she thanked nurse for update.
--- NOTE | 2020-09-01 21:40 | NUR ---
prn ativan given, pt reports he wishses to sleep, cotninues to be forgetful at times, agitated at times
--- NOTE | 2020-09-01 23:19 | NUR ---
+BC result called to Perez LOYA
--- NOTE | 2020-09-02 00:29 | NUR ---
SPOKE TO NURSE, NITISH, AT [facility] IT IS AFTERHOURS THEY ARE NOT ABLE TO GET COVID RESULT FOR US. SOMEONE WILL NEED TO CALL ON DAY SHIFT DURING BUSINESS HOURS AND SPEAK WITH DEPT HEAD, JARROD OR LUIZ.
[2020-09-02 04:00] VITALS: BP 121/65
--- NOTE | 2020-09-02 04:26 | NUR ---
paged to clarify dose of ivermectin, will await call back. will pass on in shift report fo FU if no call back
--- NOTE | 2020-09-02 05:40 | NUR ---
SECURITY LEAD CALLED REPORTS PT CALLED [facility] AND REPORTED HE IS OUTSIDE THE [facility]OLDING AND DOES NOT KNOW WHERE HE IS. PT IS LYING IN BED. ONGOING CONFUSION THROUGHOUT THIS SHIFT. REORIENTED TO ROOM. PRN ATIVAN GIVEN
--- NOTE | 2020-09-02 06:09 | NUR ---
[facility] TO CLARIFY IVER MECTIN DOSE, WILL AWAIT CALL BACK WILL PASS ON IN SHIFT REPORT
[2020-09-02 06:31] LABS: BASOPHILS 0 % (0-2); EOSINOPHILS 0 % (0-7); HEMATOCRIT 30.8 % (42.0-54.0); HEMOGLOBIN 9.8 g/dL (13.5-17.5); IMMATURE GRANULOCYTES 0.3 % (0-5); LYMPHOCYTE ABS# 0.61 10x3/uL (1.32-3.57); LYMPHOCYTES 4.5 % (15-50); MCH 28.2 pg (26.0-34.0); MCHC 31.8 g/dL (31.0-37.0); MCV 88.5 fL (80.0-100.0); MEAN PLATELET VOLUME 9.2 fL (7.4-10.4); MONOCYTES 2.5 % (2-11); NEUTROPHIL ABS# 12.55 10x3/uL (1.78-5.38); NEUTROPHILS 92.7 % (40-80); PLATELET COUNT 275 10x3/uL (130-400); RBC 3.48 10x6/uL (4.20-6.10); RDW 13.5 % (11.5-14.5); WBC 13.5 10x3/uL (4.8-10.8)
[2020-09-02 07:07] LABS: ALBUMIN 2.2 g/dL (3.4-5.0); ALKALINE PHOSPHATASE 58 U/L (30-120); ALT (SGPT) 15 U/L (10-68); BILIRUBIN - TOTAL 0.36 mg/dL (0.2-1.3); CALC OSMOLALITY 276 mosm/kg (275-300); CALCIUM 8.1 mg/dL (8.5-10.1); CARBON DIOXIDE 29.9 mmol/L (21.0-32.0); CHLORIDE - SERUM 105 mmol/L (98-107); CREATININE - SERUM 0.6 mg/dL (0.6-1.3); GLUCOSE 139 mg/dL (74-106); MAGNESIUM - SERUM 1.8 mg/dL (1.8-2.4); POTASSIUM - SERUM 3.7 mmol/L (3.5-5.1); PROTEIN - SERUM 5.3 g/dL (6.4-8.2); SODIUM 138 mmol/L (136-145); eGFR NON AFRICAN AMERICAN > 90 mL/min (90-120)
[2020-09-02 07:10] LABS: UREA NITROGEN 9 mg/dL (7-18)
[2020-09-02 09:38] VITALS: BP 128/78
--- NOTE | 2020-09-02 19:30 | NUR ---
PT IN BED, AAO X 1, RESP EVEN AND UNLABORED, NO DISTRESS NOTED, CL IN REACH, SR X 2.
[2020-09-02 20:00] VITALS: BP 125/66
--- NOTE | 2020-09-02 20:00 | NUR ---
PT PULLED IV OUT AT THIS TIME, NEW 22G PLACED TO RIGHT WRIST.
[2020-09-02 22:52] LABS: SARS-CoV-2 ANTIGEN NEGATIVE- SARS-COV-2 (NEGATIVE)
--- NOTE | 2020-09-02 22:55 | NUR ---
HURT CATH PLACED AT THIS TIME FOR URINARY RETENTION
[2020-09-02 23:03] LABS: BILIRUBIN NEGATIVE (NEGATIVE); KETONE NEGATIVE (NEGATIVE); NITRITE NEGATIVE (NEGATIVE); UROBILINOGEN NORMAL mg/dL (< 2)
--- NOTE | 2020-09-03 03:34 | NUR ---
I have reviewed this patient and I concur with the Shift Assessment completed by the Licensed Practical Nurse today this shift.
[2020-09-03 04:00] VITALS: BP 135/64
[2020-09-03 06:19] LABS: BASOPHILS 0.1 % (0-2); EOSINOPHILS 0 % (0-7); HEMATOCRIT 30.2 % (42.0-54.0); HEMOGLOBIN 9.7 g/dL (13.5-17.5); IMMATURE GRANULOCYTES 0.2 % (0-5); LYMPHOCYTE ABS# 1.27 10x3/uL (1.32-3.57); LYMPHOCYTES 9.2 % (15-50); MCH 28.4 pg (26.0-34.0); MCHC 32.1 g/dL (31.0-37.0); MCV 88.3 fL (80.0-100.0); MEAN PLATELET VOLUME 9.4 fL (7.4-10.4); MONOCYTES 5.9 % (2-11); NEUTROPHIL ABS# 11.73 10x3/uL (1.78-5.38); NEUTROPHILS 84.6 % (40-80); PLATELET COUNT 307 10x3/uL (130-400); RBC 3.42 10x6/uL (4.20-6.10); RDW 13.4 % (11.5-14.5); WBC 13.9 10x3/uL (4.8-10.8)
--- NOTE | 2020-09-03 07:10 | NUR ---
LYING IN BED, AWAKE/ALERT/CONFUSED, T/R SELF AD JOHAN, FC PATENT AND DRAINING CLEAR YELLOW URINE TO CDB IN AMPLE AMT, CATH CARE PROVIDED WITH DAILY BATH AND PRN, INCONT OF BOWEL WITH USE OF INCONT PADS, PERICARE PROVIDED WITH DAILY BATH AND PRN, DENIES PAIN/OTHER DISCOMFORT AT THIS TIME, CALL LIGHT/PHONE/WATER WITHIN REACH, NO S/S OF ACUTE DISTRESS OBSERVED.
[2020-09-03 07:34] LABS: ALBUMIN 2.2 g/dL (3.4-5.0); ALKALINE PHOSPHATASE 62 U/L (30-120); ALT (SGPT) 14 U/L (10-68); CALC OSMOLALITY 272 mosm/kg (275-300); CALCIUM 8.4 mg/dL (8.5-10.1); CARBON DIOXIDE 28.3 mmol/L (21.0-32.0); CHLORIDE - SERUM 102 mmol/L (98-107); CREATININE - SERUM 0.6 mg/dL (0.6-1.3); GLUCOSE 98 mg/dL (74-106); MAGNESIUM - SERUM 1.5 mg/dL (1.8-2.4); POTASSIUM - SERUM 3.2 mmol/L (3.5-5.1); SODIUM 137 mmol/L (136-145); UREA NITROGEN 10 mg/dL (7-18); eGFR NON AFRICAN AMERICAN > 90 mL/min (90-120)
[2020-09-03 08:39] VITALS: BP 136/74
[2020-09-03 12:24] VITALS: BP 128/77; BP 135/82
[2020-09-03 13:20] VITALS: Ht 182.9 cm; Wt 71.1 kg
[2020-09-03 16:01] VITALS: BP 110/56
--- NOTE | 2020-09-03 19:30 | NUR ---
PT IN BED, AAO X 1, RESP EVEN AND UNLABORED, NO DISTRESS NOTED, CL IN REACH, SR UP X 2.
[2020-09-03 22:22] VITALS: BP 132/68
[2020-09-04 04:45] VITALS: BP 120/67
[2020-09-04 05:28] LABS: BASOPHILS 0.2 % (0-2); EOSINOPHILS 1.5 % (0-7); HEMATOCRIT 32.9 % (42.0-54.0); HEMOGLOBIN 10.4 g/dL (13.5-17.5); IMMATURE GRANULOCYTES 0.5 % (0-5); LYMPHOCYTE ABS# 1.05 10x3/uL (1.32-3.57); LYMPHOCYTES 11.9 % (15-50); MCH 28.1 pg (26.0-34.0); MCHC 31.6 g/dL (31.0-37.0); MCV 88.9 fL (80.0-100.0); MEAN PLATELET VOLUME 9.1 fL (7.4-10.4); MONOCYTES 9.2 % (2-11); NEUTROPHIL ABS# 6.76 10x3/uL (1.78-5.38); NEUTROPHILS 76.7 % (40-80); PLATELET COUNT 320 10x3/uL (130-400); RDW 13.4 % (11.5-14.5)
[2020-09-04 05:37] LABS: WBC 8.8 10x3/uL (4.8-10.8)
[2020-09-04 05:44] LABS: ALBUMIN 2.2 g/dL (3.4-5.0); ALKALINE PHOSPHATASE 66 U/L (30-120); BILIRUBIN - TOTAL 0.58 mg/dL (0.2-1.3); CALCIUM 8.3 mg/dL (8.5-10.1); CARBON DIOXIDE 33.9 mmol/L (21.0-32.0); CHLORIDE - SERUM 102 mmol/L (98-107); CREATININE - SERUM 0.6 mg/dL (0.6-1.3); GLUCOSE 91 mg/dL (74-106); MAGNESIUM - SERUM 1.5 mg/dL (1.8-2.4); SODIUM 140 mmol/L (136-145); eGFR NON AFRICAN AMERICAN > 90 mL/min (90-120)
[2020-09-04 05:50] LABS: ALT (SGPT) 20 U/L (10-68); CALC OSMOLALITY 276 mosm/kg (275-300); POTASSIUM - SERUM 2.9 mmol/L (3.5-5.1); UREA NITROGEN 7 mg/dL (7-18)
--- NOTE | 2020-09-04 06:28 | NUR ---
I have reviewed this patient and I concur with the Shift Assessment completed by the Licensed Practical Nurse today this shift.
--- NOTE | 2020-09-04 07:20 | NUR ---
Lying in bed with eyes closed, respirations slow/deep/even, rouses easily with verbal stimulus, awake/alert/confused, turned to left side at this time, FC patent and draining concentrated yellow urine to cdb in ample amt, cath care provided with daily bath and prn, incont of bowel with pericare provided with daily bath and prn, denies pain/other discomfort at this time, no s/s of acute destress observed.
[2020-09-04 08:00] VITALS: BP 125/61
[2020-09-04 11:00] VITALS: BP 113/56
[2020-09-04 11:34] VITALS: BP 125/60
[2020-09-04 15:00] VITALS: BP 126/73
--- NOTE | 2020-09-04 16:10 | NUR ---
Since lunch pt has gotten progressively more agitated yelling at staff and yelling for nurse, pt states he wants nurse to get on the phone with himself/his /and the nurse to straighten out his "marriage problem", nurse reassured pt that I had just spoken with his and that stated she was not coming to visit today because she "has an appointment", further stated that pt spoke on the phone with her earlier and "made her cry", pt cont to insist that he does not know his 's number and wants this nurse to provide it to him, gave Ativan 0.5 mg PO as ordered.
--- NOTE | 2020-09-04 19:30 | NUR ---
PT IN BED, AAO X 1, RESP EVEN AND UNLABORED, NO DISTRESS NOTED, CL IN REACH, SR UP X 2.
[2020-09-04 19:56] VITALS: BP 100/57
[2020-09-05] VITALS: BP 108/65
--- NOTE | 2020-09-05 01:08 | NUR ---
I have reviewed this patient and I concur with the Shift Assessment completed by the Licensed Practical Nurse today this shift.
[2020-09-05 04:46] LABS: BASOPHILS 0.1 % (0-2); EOSINOPHILS 0 % (0-7); HEMATOCRIT 33.4 % (42.0-54.0); HEMOGLOBIN 10.8 g/dL (13.5-17.5); IMMATURE GRANULOCYTES 0.3 % (0-5); LYMPHOCYTE ABS# 1.06 10x3/uL (1.32-3.57); LYMPHOCYTES 10.9 % (15-50); MCH 28.2 pg (26.0-34.0); MCHC 32.3 g/dL (31.0-37.0); MCV 87.2 fL (80.0-100.0); MEAN PLATELET VOLUME 9.1 fL (7.4-10.4); MONOCYTES 7.4 % (2-11); NEUTROPHIL ABS# 7.91 10x3/uL (1.78-5.38); NEUTROPHILS 81.3 % (40-80); PLATELET COUNT 331 10x3/uL (130-400); RBC 3.83 10x6/uL (4.20-6.10); RDW 13.3 % (11.5-14.5); WBC 9.7 10x3/uL (4.8-10.8)
[2020-09-05 04:49] VITALS: BP 140/61
[2020-09-05 05:04] LABS: ALBUMIN 2.2 g/dL (3.4-5.0); ALKALINE PHOSPHATASE 63 U/L (30-120); ALT (SGPT) 17 U/L (10-68); BILIRUBIN - TOTAL 0.52 mg/dL (0.2-1.3); CALCIUM 8.3 mg/dL (8.5-10.1); CARBON DIOXIDE 31.9 mmol/L (21.0-32.0); CHLORIDE - SERUM 102 mmol/L (98-107); CREATININE - SERUM 0.6 mg/dL (0.6-1.3); GLUCOSE 119 mg/dL (74-106); MAGNESIUM - SERUM 1.6 mg/dL (1.8-2.4); SODIUM 138 mmol/L (136-145); eGFR NON AFRICAN AMERICAN > 90 mL/min (90-120)
[2020-09-05 05:24] LABS: CALC OSMOLALITY 275 mosm/kg (275-300); POTASSIUM - SERUM 3.4 mmol/L (3.5-5.1); UREA NITROGEN 10 mg/dL (7-18)
--- NOTE | 2020-09-05 07:00 | NUR ---
PT LYING IN BED WITH EYES CLOSED. RAISES EASILY TO VERBAL STIMULI. AAO X1. CONFUSED TO PLACE, TIME, SITUATION. RESP EVEN AND UNLABORED. NC @ 2 LPM INTACT. PT DENIES PAIN OR ANY NEEDS AT THIS TIME. CALL LIGHT IN REACH. BED IN LOWEST POSITION. SIDE RAILS X2.
[2020-09-05 08:49] VITALS: BP 105/55
[2020-09-05 13:14] VITALS: BP 106/62
--- NOTE | 2020-09-05 13:35 | NUR ---
Nutrition Follow-up: Diet: NPO (was Cardiac previously)- placed on NPO 2/2 having PNA and MD has ordered a swallow study. PO intake: none recorded in EMR, ate 25% of breakfast as recorded on the patient's door Last BM: 09/05/20 x 2 Wt: 156.8# (09/03/20) Meds noted: abx, probiotics, NS@50, k-dur, lasix Labs noted: K 3.4(L), Glu 119(H), Mag 1.6(L), alb 2.2(L) Recommendations: -PO diet per FOURDRINIER MACHINE TENDER recommendations. -If unable to resume PO diet, RD recommend nutrition support. If TF needed RD recommends Jevity 1.5 with goal rate @ 50mL/hr + H2O @ 35mL/hr. -RD will follow-up 09/08/20.
[2020-09-05 14:36] VITALS: BP 109/64
--- NOTE | 2020-09-05 16:10 | NUR ---
I have reviewed this patient and I concur with the Shift Assessment completed by the Licensed Practical Nurse today this shift.
--- NOTE | 2020-09-05 19:05 | NUR ---
REPORT RECEIVED, PT CARE ASSUMED. PT SITTING UP IN BED AAOX1, ORIENTED TO SELF, VISITING WITH AT BEDSIDE. DENIES ANY NEEDS AT THIS TIME. BED IN LOWEST, SRX2, CL WITHIN REACH. BED ALARM ON. CPOC.
[2020-09-05 20:57] VITALS: BP 127/61
[2020-09-06 06:14] VITALS: BP 134/60
[2020-09-06 06:33] LABS: BASOPHILS 0.1 % (0-2); EOSINOPHILS 1.4 % (0-7); HEMATOCRIT 33.2 % (42.0-54.0); HEMOGLOBIN 10.5 g/dL (13.5-17.5); IMMATURE GRANULOCYTES 0.3 % (0-5); LYMPHOCYTES 8.1 % (15-50); MCH 28.1 pg (26.0-34.0); MCHC 31.6 g/dL (31.0-37.0); MCV 88.8 fL (80.0-100.0); MEAN PLATELET VOLUME 9.2 fL (7.4-10.4); NEUTROPHIL ABS# 12.68 10x3/uL (1.78-5.38); NEUTROPHILS 85.1 % (40-80); PLATELET COUNT 340 10x3/uL (130-400); RBC 3.74 10x6/uL (4.20-6.10); RDW 13.7 % (11.5-14.5)
[2020-09-06 06:35] LABS: WBC 14.9 10x3/uL (4.8-10.8)
[2020-09-06 06:50] LABS: ALBUMIN 2.3 g/dL (3.4-5.0); ALKALINE PHOSPHATASE 65 U/L (30-120); ALT (SGPT) 16 U/L (10-68); BILIRUBIN - TOTAL 0.68 mg/dL (0.2-1.3); CALC OSMOLALITY 271 mosm/kg (275-300); CALCIUM 8.3 mg/dL (8.5-10.1); CARBON DIOXIDE 30.8 mmol/L (21.0-32.0); CHLORIDE - SERUM 103 mmol/L (98-107); CREATININE - SERUM 0.6 mg/dL (0.6-1.3); GLUCOSE 80 mg/dL (74-106); POTASSIUM - SERUM 3.8 mmol/L (3.5-5.1); PROTEIN - SERUM 5.9 g/dL (6.4-8.2); SODIUM 137 mmol/L (136-145); UREA NITROGEN 9 mg/dL (7-18); eGFR NON AFRICAN AMERICAN > 90 mL/min (90-120)
--- NOTE | 2020-09-06 08:38 | NUR ---
PT RECEIVED ASLEEP BUT AROUSABLE IN BED. CONFUSED AND ASKING ABOUT A HELICOPTER. IV MEDS GIVEN, PT NPO FOR SWALLOW STUDY TODAY.
[2020-09-06 09:37] VITALS: BP 121/67
--- NOTE | 2020-09-06 16:12 | NUR ---
TALKED WITH TAYLOR LOYA REGARDING PT NOT BEING ON PRESTIQ, FAMILY WORRIED ABOUT STOPPING IT. STATES WILL WAIT FOR SWALLOW STUDY RECS AND PSYCH WHEN CONSULT IS DONE.
[2020-09-06 17:08] VITALS: BP 109/647
[2020-09-06 20:52] VITALS: BP 121/64
[2020-09-07 05:31] LABS: BASOPHILS 0.1 % (0-2); EOSINOPHILS 1.8 % (0-7); HEMATOCRIT 34.9 % (42.0-54.0); HEMOGLOBIN 11.2 g/dL (13.5-17.5); IMMATURE GRANULOCYTES 0.4 % (0-5); LYMPHOCYTE ABS# 1.03 10x3/uL (1.32-3.57); MCH 28.2 pg (26.0-34.0); MCHC 32.1 g/dL (31.0-37.0); MCV 87.9 fL (80.0-100.0); MEAN PLATELET VOLUME 9.1 fL (7.4-10.4); MONOCYTES 8.6 % (2-11); NEUTROPHIL ABS# 9.14 10x3/uL (1.78-5.38); NEUTROPHILS 80.1 % (40-80); PLATELET COUNT 304 10x3/uL (130-400); RBC 3.97 10x6/uL (4.20-6.10); RDW 13.4 % (11.5-14.5); WBC 11.4 10x3/uL (4.8-10.8)
[2020-09-07 05:41] VITALS: BP 111/63
[2020-09-07 06:13] LABS: ALBUMIN 2.3 g/dL (3.4-5.0); ALKALINE PHOSPHATASE 67 U/L (30-120); ALT (SGPT) 15 U/L (10-68); BILIRUBIN - TOTAL 0.74 mg/dL (0.2-1.3); CALC OSMOLALITY 264 mosm/kg (275-300); CALCIUM 8.6 mg/dL (8.5-10.1); CHLORIDE - SERUM 98 mmol/L (98-107); CREATININE - SERUM 0.6 mg/dL (0.6-1.3); GLUCOSE 92 mg/dL (74-106); POTASSIUM - SERUM 3.5 mmol/L (3.5-5.1); PROTEIN - SERUM 6.2 g/dL (6.4-8.2); SODIUM 133 mmol/L (136-145); UREA NITROGEN 11 mg/dL (7-18); eGFR NON AFRICAN AMERICAN > 90 mL/min (90-120)
[2020-09-07 09:28] VITALS: BP 130/67
--- NOTE | 2020-09-07 14:54 | NUR ---
LYING IN BED WITH EYES CLOSED. NO S/S OF PAIN OR DISCOMFORT. SKIN WARM AND DRY. HURT PATENT DRAINING BY GRAVITY. WILL CONTINUE TO MONITOR.
--- NOTE | 2020-09-07 19:10 | NUR ---
REPORT RECEIVED, PT CARE ASSUMED. PT LYING IN BED, AAOX1, TALKING ON THE PHONE WITH HIS . DENIES ANY NEEDS AT THIS TIME. BED LOWEST, SRX3, CL AND PHONE WITHIN REACH, BED ALARM ON. CPOC.
--- NOTE | 2020-09-07 19:59 | NUR ---
SPOKE WITH SON, UPDATE PROVIDED.
[2020-09-07 20:30] VITALS: BP 131/70
--- NOTE | 2020-09-07 22:30 | NUR ---
PIV TO RT FA LEAKING, DC'D, TIP INTACT. NEW PIV TO LT FA, 22G, X2 ATTEMPTS, TOLERATED WELL. CPOC.
[2020-09-08 00:30] VITALS: BP 128/63
[2020-09-08 04:30] VITALS: BP 112/59
[2020-09-08 08:21] VITALS: BP 122/61
[2020-09-08 08:49] LABS: ALBUMIN 2.4 g/dL (3.4-5.0); ALKALINE PHOSPHATASE 67 U/L (30-120); ALT (SGPT) 16 U/L (10-68); BILIRUBIN - TOTAL 0.65 mg/dL (0.2-1.3); CALC OSMOLALITY 268 mosm/kg (275-300); CALCIUM 8.5 mg/dL (8.5-10.1); CARBON DIOXIDE 28.7 mmol/L (21.0-32.0); CHLORIDE - SERUM 98 mmol/L (98-107); CREATININE - SERUM 0.5 mg/dL (0.6-1.3); GLUCOSE 80 mg/dL (74-106); MAGNESIUM - SERUM 1.7 mg/dL (1.8-2.4); PHOSPHOROUS 2.7 mg/dL (2.5-4.9); POTASSIUM - SERUM 3.8 mmol/L (3.5-5.1); PRE-ALBUMIN 16.3 mg/dL (18.0-35.7); PROTEIN - SERUM 5.6 g/dL (6.4-8.2); SODIUM 135 mmol/L (136-145); UREA NITROGEN 12 mg/dL (7-18); eGFR NON AFRICAN AMERICAN > 90 mL/min (90-120)
[2020-09-08 09:00] LABS: BASOPHILS 0.1 % (0-2); EOSINOPHILS 1.3 % (0-7); HEMATOCRIT 35.1 % (42.0-54.0); HEMOGLOBIN 11.4 g/dL (13.5-17.5); IMMATURE GRANULOCYTES 0.3 % (0-5); LYMPHOCYTES 10.9 % (15-50); MCH 28.2 pg (26.0-34.0); MCHC 32.5 g/dL (31.0-37.0); MCV 86.9 fL (80.0-100.0); MEAN PLATELET VOLUME 9.3 fL (7.4-10.4); MONOCYTES 6.8 % (2-11); NEUTROPHIL ABS# 8.84 10x3/uL (1.78-5.38); NEUTROPHILS 80.6 % (40-80); PLATELET COUNT 296 10x3/uL (130-400); RBC 4.04 10x6/uL (4.20-6.10); RDW 13.5 % (11.5-14.5)
[2020-09-08 12:36] VITALS: BP 117/55
--- NOTE | 2020-09-08 13:26 | NUR ---
Nutrition Follow-up: NPO per ST. Receiving Procal @ 75 mL/hr; provides 441 kcal (21-25% est needs) & 54 g protein (68-83% est needs) daily. No new wt; last wt: 156.8# (09/03) Labs noted: Na 135, Mg 1.7, Alb 2.4, PAB 16.3 Meds noted: Protonix, Lasix, Florajen, electrolyte protocol -Rec initiate TF (NGT vs PEG). Rec Jevity 1.5 @ goal rate of 50 mL/hr as tolerated; provides 1800 kcal (85-101% est needs) & 77 g protein (96-119% est needs) daily. Flushes 35 mL q hr. -Need new wt. -RD will follow up within 2-3 days.
--- NOTE | 2020-09-08 14:41 | NUR ---
SPOKE WITH BEN SAMANIEGO JR, PATIENT'S SON. HE SHARED CONCERNS ABOUT PATIENT BEING NPO SINCE TUESDAY SWALLOW EVAL AND NOT RECIEVING PRESCRIBED ANTIBIOTICS. NURSE CALLED SPEECH. SPEECH TO REEVALUATE TODAY AND IF DOING THE SAME RECOMEND PEG TUBE. PATIENT REPORTED HE MAY NEED TO SPEAK WITH ADMINISTRATION. HE SAID HE ASKED THAT PSYCH BE CONSULTED DAYS AGO. NURSE CALLED ILA ALVAREZ WITH ALL OF THIS INFORMATION. INFORMED HIM PATIENT WOULD LIKE TO SPEAK TO DOCTOR AND SPEECH THERAPY. NURSE INFORMED IT WAS NOT STANDARD FOR SPEECH TO SPEAK WITH PATIENTS FAMILIES BUT THEY WOULD PLACE THEIR RECCOMENDATIONS. NURSE INFORMED PATIENT THAT THE PROVIDOR WOULD BE CONTACTED WITH THIS INFORMATION AND THE PATIENT SHOULD EXPECT A CALL BACK WITH UPDATE.
[2020-09-08 16:01] VITALS: BP 109/59
[2020-09-08 16:09] LABS: AEROBE ID Final report (()); RESULT 1 Aerococcus urinae (())
[2020-09-08 20:05] VITALS: BP 95/54
--- NOTE | 2020-09-08 22:45 | NUR ---
REPORT RECEIVED, WILL CONT POC. A&O TO SELF. NO S/S OF DISTRESS OBSERVED. RR EVEN AND UNLABORED ON RA. BED LOCKED AND LOWERED, CL IN REACH. ASSESSMENT COMPLETED AT THIS TIME. WILL CONT TO MONITOR.
[2020-09-09 05:38] VITALS: BP 99/45
[2020-09-09 06:17] LABS: BASOPHILS 0.1 % (0-2); EOSINOPHILS 1.2 % (0-7); HEMOGLOBIN 11.7 g/dL (13.5-17.5); IMMATURE GRANULOCYTES 0.3 % (0-5); LYMPHOCYTE ABS# 1.03 10x3/uL (1.32-3.57); LYMPHOCYTES 10.4 % (15-50); MCH 28.4 pg (26.0-34.0); MCHC 32.5 g/dL (31.0-37.0); MCV 87.4 fL (80.0-100.0); MEAN PLATELET VOLUME 9.6 fL (7.4-10.4); MONOCYTES 8.2 % (2-11); NEUTROPHILS 79.8 % (40-80); PLATELET COUNT 284 10x3/uL (130-400); RBC 4.12 10x6/uL (4.20-6.10); RDW 13.5 % (11.5-14.5); WBC 9.9 10x3/uL (4.8-10.8)
[2020-09-09 06:27] LABS: ALBUMIN 2.4 g/dL (3.4-5.0); ALKALINE PHOSPHATASE 71 U/L (30-120); ALT (SGPT) 18 U/L (10-68); BILIRUBIN - TOTAL 0.66 mg/dL (0.2-1.3); CALC OSMOLALITY 266 mosm/kg (275-300); CALCIUM 8.8 mg/dL (8.5-10.1); CARBON DIOXIDE 30.7 mmol/L (21.0-32.0); CHLORIDE - SERUM 96 mmol/L (98-107); CREATININE - SERUM 0.6 mg/dL (0.6-1.3); GLUCOSE 91 mg/dL (74-106); POTASSIUM - SERUM 3.5 mmol/L (3.5-5.1); PROTEIN - SERUM 6.5 g/dL (6.4-8.2); SODIUM 133 mmol/L (136-145); eGFR NON AFRICAN AMERICAN > 90 mL/min (90-120)
[2020-09-09 06:31] LABS: UREA NITROGEN 16 mg/dL (7-18)
--- NOTE | 2020-09-09 07:45 | NUR ---
PT LYING IN BED, RR EVEN NON LABORED, O2 IN PLACE VIA NC. PT MOVED UP IN BED AND REPOSITIONED. F/C PATENT AND TO GRAVITY. PT AWAKE AND ALERT. NO NEEDS VOICED. CLWR.
--- NOTE | 2020-09-09 08:04 | NUR ---
SPOKE WITH PT FAMILY ON PHONE AT THIS TIME.
[2020-09-09 08:39] VITALS: BP 92/56
--- NOTE | 2020-09-09 10:26 | NUR ---
SPOKE WITH PT SON , MEDICAL POA, REGARDING CONSENT FOR PLCEMENT OF PEGTUBE AND THE NEED OF BLOOD IF NECESARY. NO QUESTIONS VOICED.
--- NOTE | 2020-09-09 11:05 | NUR ---
USED PHONE IN ROOM TO CALL SON AND PT AND SON SPOKE REGARDING PLAN FOR SURGERY AND PT STATES UNDERSTANDING.
[2020-09-09 12:06] VITALS: BP 102/61
--- NOTE | 2020-09-09 14:20 | NUR ---
PT ARRIVED FROM SURGERY AT THIS TIME. VS STABLE AND PT EYES CLOSED, RR EVEN NON LABORED. OCCASIONAL COUGH NOTED. PT IV TO LEFT ARM D/C D/T NOTICABLE DISCOMFORT WHEN ATTEMPTING TO FLUSH. NEW IV TO RIGHT FOREARM 22G PLACED DURING SURGERY. UPDATED FAMILY REGARDING PT ARRIVING BACK TO UNIT. CLWR.
[2020-09-09 14:34] VITALS: BP 118/69
[2020-09-09 15:00] VITALS: BP 118/69
--- NOTE | 2020-09-09 15:24 | PN ---
PATIENT:SOURAV KIRKPATRICK MEDICAL RECORD: [id number] LOCATION:[address] ADMISSION DATE: 08/30/20 PROGRESS NOTE DATE OF SERVICE: 09/08/2020 IDENTIFYING DATA: The patient is 85 years old and he was admitted to the hospital secondary to nausea and vomiting. CHIEF COMPLAINT: Mental status change. HISTORY OF PRESENT ILLNESS: The patient lives in a care home and has a past history of coronary artery disease and hypertension. He has been admitted to the hospital because of some nausea and vomiting and has shown a great deal of confusion. He is a severely impaired cognitively. He is only partially oriented. ASSESSMENT: Dementia, type uncertain. PLAN: The patient is not acutely dangerous from some sort of an aggressive standpoint, but he does require 24-hour day supervision. I have reviewed his medications and will make some minor changes to his medication regimen and would recommend he be transferred back to the care home when it is practical to do so. TRANSINT:[id number] Voice Confirmation ID: [id number] DOCUMENT ID: [id number] JACOB GARCIA MD at 1524 CC: [id number] DICTATION DATE: 09/08/20 1640 HARNESSMAKER APPRENTICE: 09/09/20 0058 ADM IN [facility] [address] [place] [id number]
--- NOTE | 2020-09-09 17:52 | NUR ---
PT AWOKE AT THIS TIME HOLLARING. NURSE ENTERED ROOM AND ATTEMPTED TO CALM PATIENT DOWN AND REORIENT. PT YELLING AT NURSE, CUSSING AND ATTEMPTING TO HIT NURSE. PT ATTEMPTED TO EXIT THE BED. NURSE CALLED PT SON AT BEDSIDE TO ATTEMPT TO CALM PT. PT TALKED TO SON ON PHONE. PT REQUESTED TO USE BATHROOM, PT PLACED ON BEDPAN AND ASSISTED. PT UNHAPPY AND USES DEMEANING WORDS TO NURSE. CAMERA ON PT. NOTIFIED GLUING PRESSMAN REGARDING CHANGE IN BEHAVIOR. WILL CONTINUE TO MONITOR. CLWR.
[2020-09-09 20:00] VITALS: BP 111/58
--- NOTE | 2020-09-09 21:27 | NUR ---
PT LAYING SUPINE IN BED. PT IS ALERT TO SELF BY NAME ONLY. PT IS COOPERATIVE AND FOLLOWING COMMANDS. PEG TUBE IS WORKING, MEDS GIVEN AND FREE WATER. BINDER IN PLACE. PT BNC IN PLACE, BED IS DRY AND CLEAN. HURT IN PLACE. PT IS NPO. LEFT FOREARM IV IS INTACT, CLEAN, AND DRY WITH PROCAL INFUSING AT 75ML/HR. PT SON WHO IS CLARISA SAMANIEGO CALLED AROUND 1999 TO CHECK ON PT. UPDATE GIVEN AND QUESTIONS ANSWERED.
[2020-09-10 05:19] VITALS: BP 102/61
[2020-09-10 05:58] LABS: BASOPHILS 0.1 % (0-2); EOSINOPHILS 0.9 % (0-7); HEMATOCRIT 36.7 % (42.0-54.0); HEMOGLOBIN 12.1 g/dL (13.5-17.5); IMMATURE GRANULOCYTES 0.2 % (0-5); LYMPHOCYTES 10.5 % (15-50); MCH 28.7 pg (26.0-34.0); MCV 87.2 fL (80.0-100.0); MEAN PLATELET VOLUME 9.9 fL (7.4-10.4); MONOCYTES 6.4 % (2-11); NEUTROPHIL ABS# 9.41 10x3/uL (1.78-5.38); NEUTROPHILS 81.9 % (40-80); PLATELET COUNT 269 10x3/uL (130-400); RBC 4.21 10x6/uL (4.20-6.10); RDW 13.4 % (11.5-14.5); WBC 11.5 10x3/uL (4.8-10.8)
[2020-09-10 06:18] LABS: ALBUMIN 2.4 g/dL (3.4-5.0); ALKALINE PHOSPHATASE 73 U/L (30-120); ALT (SGPT) 19 U/L (10-68); BILIRUBIN - TOTAL 0.55 mg/dL (0.2-1.3); CALC OSMOLALITY 271 mosm/kg (275-300); CALCIUM 9.1 mg/dL (8.5-10.1); CARBON DIOXIDE 29.3 mmol/L (21.0-32.0); CHLORIDE - SERUM 98 mmol/L (98-107); CREATININE - SERUM 0.5 mg/dL (0.6-1.3); GLUCOSE 107 mg/dL (74-106); MAGNESIUM - SERUM 1.9 mg/dL (1.8-2.4); PHOSPHOROUS 3.1 mg/dL (2.5-4.9); POTASSIUM - SERUM 3.6 mmol/L (3.5-5.1); PROTEIN - SERUM 6.4 g/dL (6.4-8.2); SODIUM 135 mmol/L (136-145); UREA NITROGEN 18 mg/dL (7-18); eGFR NON AFRICAN AMERICAN > 90 mL/min (90-120)
[2020-09-10 07:56] VITALS: BP 104/67
[2020-09-10 11:19] VITALS: BP 91/50
--- NOTE | 2020-09-10 14:31 | NUR ---
Nutrition Consult: Received consult from Dr. Garza for TF recommendations. Per MD notes, Ok to start TF. Started Jevity 1.5 @ 20mL/hr, increase by 10mL/hr q 6hrs (as tolerated) until reaching goal rate @ 50mL/hr + H2O @ 35mL/hr. Thank you for consult. RD will follow-up 09/11/20.
--- NOTE | 2020-09-10 14:43 | MORECARE ---
CASE MANAGEMENT DISCHARGE SUMMARY PATIENT: SOURAV KIRKPATRICK UNIT: [id number] ADM DATE: 08/30/20 AGE: 85 : 37 SEX: M ROOM/BED: D.4979 AUTHOR: ROMI,DOC PHYSICIAN: REFERRING PHYSICIAN: EDGAR SHARIF MD DATE OF SERVICE: 09/10/20 Case Management Discharge Planning Summary COMMENTS ENTERED DATE: 09/10/20 14:38 CT COMMENT TYPE: Discharge Planning REVIEWER: Shabnam Kirkpatrick CM met with patient to discuss discharge planning/needs. He is confused, but answers some questions appropriately. States he is a resident at [facility] when I questioned him. I called patient's to discuss discharge plans. She states he has been at [facility] and plan is to return on discharge. States he has not cooperated with therapy, so she thinks he is in a penitentiary bed. I called [facility] and spoke with Leah. Leah states that he is in private pay bed and that they anticipate his return there when ready. I informed Leah that tube feedings were being initiated today and he should be able to return when at goal rate. Updates faxed to [facility]. CM will continue to follow and assist with discharge planning/needs. DCP REVIEW SUMMARY ANTICIPATED D/C DATE: EXPECTED LOS : CASE STATUS: DCP Initiated INITIAL REVIEW: 09/10/2020 INITIAL REVIEWER: Shabnam Kirkpatrick FINAL DISCHARGE DISPOSITION: : FINAL REVIEWER: FINAL REVIEW DATE: DCP Focus Questions & Answers - Added on: QUESTION: ANSWER : PATIENT: SOURAV KIRKPATRICK ENCOUNTER: [id number] MEDICAL RECORD#: [id number] ADMISSION DATE: 08/30/2020 DISCHARGE DATE: ATTENDING MD: EDGAR WAYNE : AGE: 85 MARITAL STATUS: D DC PLAN ID: [id number] FACILITY: [facility] PRINTED ON: 09/10/20 14:43 CT All edits/amendments must be made on the electronic document DICTATION DATE: 09/10/201442 INDOOR LANDSCAPE ARCHITECT: SEBLE 09/10/201442 RPT#: [id number] DC DATE: STATUS: ADM IN [facility] [address] [place] [address] END OF REPORT
[2020-09-10 15:44] VITALS: BP 99/46
--- NOTE | 2020-09-10 18:51 | NUR ---
STARTED JEVITY 1.5 AT 20 ML HR WITH WATER FLUSH 35 ML HR AT 1700 AFTER CALLING DIETARY FOR FEEDING.
[2020-09-10 20:00] VITALS: BP 99/52
--- NOTE | 2020-09-10 21:59 | NUR ---
PT LAYING SUPINE IN BED. MEDS GIVEN THROUGH PEG TUBE. FEEDINGS CURRENTLY RUNNING AT 20ML AND TOLERATING WELL. IV IN PLACE AND INFUSING PROCAL AT 75. PT CONFUSED, ONLY ORIENTED TO SELF. PT C/O HUNGER AND THIRST. MOUTH CARE PERFORMED FOR COMFORT. PT DENIES PAIN. WILL CONTINUE TO MONITOR PT.
[2020-09-10 23:58] VITALS: BP 133/58
[2020-09-11 04:00] VITALS: BP 140/59
--- NOTE | 2020-09-11 05:09 | NUR ---
PT WOKE UP ANGRY. PT WAS YELLING VARIOUS NAMES. PT IS CONFUSED, HOWEVER KNOWS HE WANTS TO GO HOME RIGHT NOW. PT WAS ABLE TO VENT TO NURSE AND REASSURED HE IS GETTING BETTER AND HIS WILL BE HERE TODAY. PT AGREED TO BE PATIENT AND WATCH TV WHILE WAITING. PT STATES HE IS UPSET BECAUSE HE CANNOT EAT OR DRINK. EDUCATION PROVIDED TO PATIENT ON DISEASE PROCESS AND REORIENTED TO SITUATION.
[2020-09-11 07:08] LABS: CALC OSMOLALITY 270 mosm/kg (275-300); CALCIUM 8.7 mg/dL (8.5-10.1); CARBON DIOXIDE 30.4 mmol/L (21.0-32.0); CHLORIDE - SERUM 97 mmol/L (98-107); CREATININE - SERUM 0.5 mg/dL (0.6-1.3); GLUCOSE 93 mg/dL (74-106); MAGNESIUM - SERUM 1.9 mg/dL (1.8-2.4); PHOSPHOROUS 3.2 mg/dL (2.5-4.9); POTASSIUM - SERUM 4.1 mmol/L (3.5-5.1); SODIUM 134 mmol/L (136-145); UREA NITROGEN 22 mg/dL (7-18); eGFR NON AFRICAN AMERICAN > 90 mL/min (90-120)
[2020-09-11 09:57] VITALS: BP 100/55
[2020-09-11 12:42] VITALS: BP 119/86
--- NOTE | 2020-09-11 12:56 | NUR ---
Nutrition Reassessment/Follow-up: POD 2 PEG placement. At time of visit this AM, nursing reports pt tolerating TF @ 30 mL/hr (no residual). Also receiving Procal @ 75 mL/hr. Discussed in IDT this AM. Procal to be d/c'd per Kalia Saldivar PA-C. Diet: Jevity 1.5 - goal rate 50 mL/hr + H2O flushes 35 mL q hr No new wt; last wt: 156.8# (09/03) Labs noted: Na 134 Meds noted: Lasix, KCl, Protonix, Florajen, Miralax, vit B1, electrolyte protocol -Nutrition needs unchanged from initial assessment; no new wt available. -Jevity 1.5 @ goal rate of 50 mL/hr provides 1800 kcal (85-101% est needs) & 77 g protein (96-119% est needs) daily. TF + flushes = 1752 mL H2O daily. -Need new wt; noted daily wts ordered. -Rec d/c Procal as discussed. -RD follow-up: 09/12
[2020-09-11 17:28] VITALS: BP 86/53
[2020-09-11 20:21] VITALS: BP 91/54
--- NOTE | 2020-09-11 20:40 | NUR ---
PEG PLACEMENT VERIFIED BY AUSULTATION, NO RESIDUAL NOTED, TF RATE CHANGED TO 50 CC/HR, WHICH IS GOAL RATE. ABD BINDER IN PLACE WILL CONTINUE TO MONITOR
--- NOTE | 2020-09-12 00:15 | NUR ---
TF BAG AND TUBING CHANGED, PEG PLACEMENT VERIFIED BY AUSCULTATION
[2020-09-12 04:28] VITALS: BP 96/59
[2020-09-12 06:14] LABS: CALC OSMOLALITY 264 mosm/kg (275-300); CALCIUM 8.6 mg/dL (8.5-10.1); CARBON DIOXIDE 31.4 mmol/L (21.0-32.0); CHLORIDE - SERUM 95 mmol/L (98-107); CREATININE - SERUM 0.6 mg/dL (0.6-1.3); GLUCOSE 115 mg/dL (74-106); MAGNESIUM - SERUM 1.9 mg/dL (1.8-2.4); PHOSPHOROUS 3.3 mg/dL (2.5-4.9); SODIUM 130 mmol/L (136-145); UREA NITROGEN 22 mg/dL (7-18); eGFR NON AFRICAN AMERICAN > 90 mL/min (90-120)
[2020-09-12 08:39] VITALS: BP 120/75
[2020-09-12] MEDS ORDERED: LEXAPRO10 MG PEG (10:59)
[2020-09-12] MEDS ORDERED: NAMENDA5 MG PO (11:00)
[2020-09-12 11:24] VITALS: BP 109/54
--- NOTE | 2020-09-12 11:36 | MORECARE ---
CASE MANAGEMENT DISCHARGE SUMMARY PATIENT: SOURAV KIRKPATRICK UNIT: [id number] ADM DATE: 08/30/20 AGE: 85 : 37 SEX: M ROOM/BED: D.7899 AUTHOR: RADHA LLANOS PHYSICIAN: REFERRING PHYSICIAN: EDGAR SHARIF MD DATE OF SERVICE: 09/12/20 Case Management Discharge Planning Summary COMMENTS ENTERED DATE: 09/12/20 11:30 CT COMMENT TYPE: Discharge Planning REVIEWER: Shabnam Kirkpatrick CM received discharge orders. I called [facility] and clinical faxed. He will go to a private pay bed. I called patient's and she is in agreement to discharge to [facility]. IMM explained, will be certified mailed and copy placed in MR. Report to be called to [facility] at [phone]. ENTERED DATE: 09/10/20 14:38 CT COMMENT TYPE: Discharge Planning REVIEWER: Shabnam Kirkpatrick CM met with patient to discuss discharge planning/needs. He is confused, but answers some questions appropriately. States he is a resident at [facility] when I questioned him. I called patient's to discuss discharge plans. She states he has been at [facility] and plan is to return on discharge. States he has not cooperated with therapy, so she thinks he is in a penitentiary bed. I called [facility] and spoke with Leah. Leah states that he is in private pay bed and that they anticipate his return there when ready. I informed Leah that tube feedings were being initiated today and he should be able to return when at goal rate. Updates faxed to [facility]. CM will continue to follow and assist with discharge planning/needs. DCP REVIEW SUMMARY ANTICIPATED D/C DATE: EXPECTED LOS : CASE STATUS: DCP Initiated INITIAL REVIEW: 09/10/2020 INITIAL REVIEWER: Shabnam Kirkpatrick FINAL DISCHARGE DISPOSITION: : FINAL REVIEWER: FINAL REVIEW DATE: DCP Focus Questions & Answers - Added on: QUESTION: ANSWER : PATIENT: SOURAV KIRKPATRICK ENCOUNTER: [id number] MEDICAL RECORD#: [id number] ADMISSION DATE: 08/30/2020 DISCHARGE DATE: ATTENDING MD: EDGAR WAYNE : AGE: 85 MARITAL STATUS: D DC PLAN ID: [id number] FACILITY: [facility] PRINTED ON: 09/12/20 11:36 CT All edits/amendments must be made on the electronic document DICTATION DATE: 09/12/201135 ZIPPER TRIMMER: SEBLE 09/12/201135 RPT#: [id number] DC DATE: STATUS: ADM IN [facility] [address] [place] [address] END OF REPORT
--- NOTE | 2020-09-12 13:26 | NUR ---
DISCHARGED TO [facility]. PT DRESSED & X2 ASSIST TO WHEELCHAIR. HURT CATHETER LEFT IN PLACE. STAFF SAID THEY WOULD REMOVE IT UPON HIS ARRIVAL. REPORT CALLED TO [facility]. BELONGINGS SENT WITH PT. WISHED WELL
--- NOTE | 2020-09-12 14:12 | NUR ---
Nutrition Follow-up: Receiving Jevity 1.5 @ 50 mL/hr this AM (goal rate). Procal d/c'd. Noted plans to d/c to [facility] today. Diet: Jevity 1.5 @ 50 mL/hr + H2O flushes 35 mL q hr No new wt; last wt: 156.8# (09/03) Labs noted: Na 130, Glu 115 Meds noted: vit B1, Miralax, Colace, Lasix, electrolyte protocol -TF as tolerated. - follow-up: 09/15 if pt still admitted.
--- NOTE | 2020-09-12 15:55 | MORECARE ---
CASE MANAGEMENT DISCHARGE SUMMARY PATIENT: SOURAV KIRKPATRICK UNIT: [id number] ADM DATE: 08/30/20 AGE: 85 : 37 SEX: M ROOM/BED: D.2130 AUTHOR: ROMI,DOC PHYSICIAN: REFERRING PHYSICIAN: EDGAR SHARIF MD DATE OF SERVICE: 09/12/20 Case Management Discharge Planning Summary CT Patient Name: SOURAV KIRKPATRICK Attending MD : EDGAR CASAS Medical Record: [id number] Encounter : [id number] Facility : [address] [place] [address] Admission Date : 123:18 Center Discharge Date : 09/12/2020 [facility] [place] [address] Date of : DC Plan ID : [id number] Age/Sex/Martia : 85/ M/D Printed on : 09/12/20 15:54 CT DCP Review Details Anticipated D/C: Expected LOS : Case Status : INITIATED - Initial Reviewe: [id number] - Shabnam Kirkpatrick Initial Review: 09/10/2020 Planned Disposi: - Final Discharge: - Final Reviewer : : Final Review : Comments CT Entered Date Type Reviewer 09/12/20 11:30 CT Discharge Planning Shabnam Kirkpatrick Comment CM received discharge orders. I called [facility] and clinical faxed. He will go to a private pay bed. I called patient's and she is in agreement to discharge to [facility]. IMM explained, will be certified mailed and copy placed in MR. Report to be called to [facility] at [phone]. 09/10/20 14:38 CT Discharge Planning Shabnam Kirkpatrick Comment CM met with patient to discuss discharge planning/needs. He is confused, but answers some questions appropriately. States he is a resident at [facility] when I questioned him. I called patient's to discuss discharge plans. She states he has been at [facility] and plan is to return on discharge. States he has not cooperated with therapy, so she thinks he is in a correction bed. I called [facility] and spoke with Leah. Leah states that he is in private pay bed and that they anticipate his return there when ready. I informed Leah that tube feedings were being initiated today and he should be able to return when at goal rate. Updates faxed to [facility]. CM will continue to follow and assist with discharge planning/needs. DCP Focus Questions & Answers [facility] SOURAV KIRKPATRICK MR#: [id number] /Age/Sex/Bmlpgf0-Rba-21 /85/M /D Attending Physician Name: DEANGELO SHARIF [id number] Patient Account:[id number] [facility] Page -1 of 1 All edits/amendments must be made on the electronic document DICTATION DATE: 09/12/201553 FRAUD ANALYST: SEBLE 09/12/201553 RPT#: [id number] DC DATE:09/12/20 STATUS: DIS IN [facility] [address] [place] [address] END OF REPORT
--- NOTE | 2020-09-13 16:45 | MORECARE ---
CASE MANAGEMENT DISCHARGE SUMMARY PATIENT: SOURAV KIRKPATRICK UNIT: [id number] ADM DATE: 08/30/20 AGE: 85 : 37 SEX: M ROOM/BED: D.2130 AUTHOR: ROMI,DOC PHYSICIAN: REFERRING PHYSICIAN: EDGAR SHARIF MD DATE OF SERVICE: 09/13/20 Case Management Discharge Planning Summary CT Patient Name: SOURAV KIRKPATRICK Attending MD : EDGAR CASAS Medical Record: [id number] Encounter : [id number] Facility : [address] [place] [address] Medical Admission Date : 123:18 Center Discharge Date : 09/12/2020 [facility] [place] [address] Date of : DC Plan ID : [id number] Age/Sex/Martia : 85/ M/D Printed on : 09/13/20 16:44 CT DCP Review Details Anticipated D/C: Expected LOS : 0 Case Status : INITIATED - Initial Reviewe: [id number] - Shabnam Kirkpatrick Initial Review: 09/10/2020 Planned Disposi: - Final Discharge: 64 - Discharge/Trans to a Nursing Facility Certified under Medicaid but not Medicare Final Reviewer : [id number] : Shabnam Kirkpatrick Final Review : 09/13/[address] Entered Date Type Reviewer 09/12/20 11:30 CT Discharge Planning Shabnam Kirkpatrick Comment CM received discharge orders. I called [facility] and clinical faxed. He will go to a private pay bed. I called patient's and she is in agreement to discharge to [facility]. IMM explained, will be certified mailed and copy placed in MR. Report to be called to [facility] at [phone]. 09/10/20 14:38 CT Discharge Planning Shabnam Kirkpatrick Comment CM met with patient to discuss discharge planning/needs. He is confused, but answers some questions appropriately. States he is a resident at [facility] when I questioned him. I called patient's to discuss discharge plans. She states he has been at [facility] and plan is to return on discharge. States he has not cooperated with therapy, so she thinks he is in a detention bed. I called [facility] and spoke with Leah. Leah states that he is in private pay bed and that they anticipate his return there when ready. I informed Leah that tube feedings were being initiated today and he should be able to return when at goal rate. Updates faxed to [facility]. CM will continue to follow and assist with discharge planning/needs. DCP Focus Questions & Answers [facility] SOURAV KIRKPATRICK MR#: [id number] /Age/Sex/Jiatwq7-Csl-45 /85/M /D Attending Physician Name: DEANGELO SHARIF [id number] Patient Account:[id number] [facility] Page -1 of 1 All edits/amendments must be made on the electronic document DICTATION DATE: 09/13/201643 FIELD ASSOCIATE: SEBLE 09/13/201643 RPT#: [id number] DC DATE:09/12/20 STATUS: DIS IN [facility] [address] [place] [address] END OF REPORT
--- NOTE | 2020-09-15 14:04 | PN ---
PATIENT:SOURAV KIRKPATRICK MEDICAL RECORD: [id number] LOCATION:[address] ADMISSION DATE: 08/30/20 PROGRESS NOTE DATE OF SERVICE: 09/11/2020 SUBJECTIVE: The patient's case was discussed with staff. He has no new complaint. 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 He is not wanting to hurt himself or others and has no psychotic symptoms. ASSESSMENT: Dementia. PLAN: The patient apparently had some agitation associated with the feeding tube. He is not fully capable of understanding the importance of not taking things by mouth or following through with these recommendations. If the PEG tube placement is functioning properly, from my standpoint there is no impediment to transferring him to the detention. He does not have any symptoms that would represent a direct risk to himself or others aside from the obvious need for nursing care and supervision. He does not need any kind of mental health followup aside from the monitoring of the progression of his dementing illness, which can be done by his primary care doctor. TRANSINT:[id number] Voice Confirmation ID: [id number] DOCUMENT ID: [id number] JACOB GARCIA MD at 1404 CC: [id number] DICTATION DATE: 09/11/201754 DISPUTE SPECIALIST: 09/11/20 1806 DIS IN 09/12/20 [facility] [address] [place] [address]
--- NOTE | 2020-09-15 14:33 | OP ---
PATIENT NAME: KALE KIRKPATRICK MEDICAL RECORD: [id number] :39 LOCATION:D.M2 D.0 ADMISSION DATE:08/30/20 SURGEON: KALE BERGER MD DATE OF OPERATION: 09/09/2020 PREOPERATIVE DIAGNOSES: 1. Aspiration pneumonia. 2. Dysphagia. 3. Failure to thrive. POSTOPERATIVE DIAGNOSES: 1. Aspiration pneumonia. 2. Dysphagia. 3. Failure to thrive. 4. Hiatal hernia. PROCEDURES: 1. Esophagogastroduodenoscopy with antral biopsies to rule out H. pylori. 2. Percutaneous endoscopic gastrostomy tube placement, 20-Bulgarian. SURGEON: Kale Berger MD WELDER EXPLOSION: None. BLOOD LOSS: Minimal. ANESTHESIA: Local with IV sedation. COMPLICATIONS: None. The risks, possible complications, and alternatives of procedure were explained to the patient's relative. They elected to proceed. ENDOSCOPIC COURSE: The patient was conveyed to the endoscopy suite electively on 09/09/2020. IV sedation was induced by the anesthesia staff. The abdomen was sterilely prepped and draped. A bite block was inserted. A gastroscope was inserted into the mouth. It was advanced easily into the hypopharynx. The esophagus was easily intubated as were the stomach and duodenum. Only the duodenal bulb was visualized as the scope was "hubbed out." I withdrew into the stomach. Cold endoscopic biopsies were obtained to rule out H. pylori. I then cleansed the anterior abdominal wall skin. I indented the skin and was able to see this endoscopically. I then transilluminated the abdominal wall, was able to see the light as well. A local anesthetic local anesthetic was used to infiltrate the skin and subcutaneous tissues just inferior and to the left of the xiphoid process. An incision was accomplished here. I advanced an Angiocath type catheter through the incision and punctured the stomach. I advanced a wire through the Angiocath. This was grasped with an endoscopic snare and was withdrawn out through the mouth. The wire was attached to a pull-type gastrostomy tube, which was then pulled into place. I readvanced the endoscope down the esophagus and into the stomach. There had been no evidence of false passage or perforation. The gastrostomy tube appeared to be well placed. Hub and flange devices were attached to the gastrostomy tube as I withdrew the endoscope under direct vision. A sterile dressing was applied. OPERATIVE REPORT [id number] KALE KIRKPATRICK The patient was then conveyed back to his room. TRANSINT:[id number] Voice Confirmation ID: [id number] DOCUMENT ID: [id number] KALE BERGER MD at 1433 CC: [id number] DICTATION DATE: 09/11/20 1147 ROLLER PRESSER OPERATOR: 09/11/20 1218 DIS IN 09/12/20 [place] [id number] [place] [id number]
== END 2020-09-12 13:30 | DRG 193 ==
LOC: D.ER 22:27 → D.MS 23:18 → D.M2 23:18
PROVIDERS: Emergency Medicine; Family Medicine; Internal Medicine Pulmonary Disease; Surgery; ADMIT Family Medicine; ATTEND Family Medicine
PROC: 0DB78ZX Excision of Stomach, Pylorus, Via Natural or Artificial Opening Endoscopic, Diagnostic (ICD-10-PCS; 2020-09-09)
PROC: 0DH63UZ Insertion of Feeding Device into Stomach, Percutaneous Approach (ICD-10-PCS; principal; 2020-09-09 12:00)
DX: J18.9 Pneumonia, unspecified organism (principal); G93.41 Metabolic encephalopathy; J96.01 Acute respiratory failure with hypoxia; I50.23 Acute on chronic systolic (congestive) heart failure; L02.212 Cutaneous abscess of back [any part, except buttock and flank]; J98.11 Atelectasis; Z20.822 Contact with and (suspected) exposure to COVID-19; I25.10 Atherosclerotic heart disease of native coronary artery without angina pectoris; E83.42 Hypomagnesemia; K44.9 Diaphragmatic hernia without obstruction or gangrene; I11.0 Hypertensive heart disease with heart failure; D50.9 Iron deficiency anemia, unspecified

== ENCOUNTER 2020-12-09 14:14 | Emergency (ER) | payer MEDICARE, BC ==
[~2020-12-09] VITALS: Ht 182.9 cm; Wt 81.8 kg
[~2020-12-09 14:14] MED LIST changes: +LEXAPRO10 MG PEG; +NAMENDA5 MG PO
[2020-12-09 14:20] VITALS: BP 108/72; Ht 182.9 cm; Wt 81.8 kg
== END 2020-12-09 16:26 ==
LOC: D.ER 14:14
DX: Z93.1 Gastrostomy status (principal); E11.9 Type 2 diabetes mellitus without complications; Z79.84 Long term (current) use of oral hypoglycemic drugs; I10 Essential (primary) hypertension; I50.9 Heart failure, unspecified; I25.2 Old myocardial infarction; Z95.0 Presence of cardiac pacemaker; Z95.1 Presence of aortocoronary bypass graft

== ENCOUNTER 2020-12-12 18:56 | Inpatient (IN) | payer MEDICARE, BC ==
[~2020-12-12] VITALS: Ht 182.9 cm; Wt 91.5 kg
[2020-12-12 20:07] LABS: ALBUMIN 2.6 g/dL (3.4-5.0); ALKALINE PHOSPHATASE 67 U/L (30-120); ALT (SGPT) 20 U/L (10-68); BILIRUBIN - TOTAL 0.41 mg/dL (0.2-1.3); CALC OSMOLALITY 238 mosm/kg (275-300); CARBON DIOXIDE 30.9 mmol/L (21.0-32.0); CHLORIDE - SERUM 86 mmol/L (98-107); CREATININE - SERUM 0.5 mg/dL (0.6-1.3); GLUCOSE 126 mg/dL (74-106); POTASSIUM - SERUM 4.9 mmol/L (3.5-5.1); PROTEIN - SERUM 5.6 g/dL (6.4-8.2); UREA NITROGEN 13 mg/dL (7-18); eGFR NON AFRICAN AMERICAN > 90 mL/min (90-120)
[2020-12-12 20:09] LABS: SODIUM 117 mmol/L (136-145)
[2020-12-12 20:33] LABS: BASOPHILS 0.2 % (0-2); EOSINOPHILS 1.2 % (0-7); HEMATOCRIT 30.4 % (42.0-54.0); HEMOGLOBIN 10.1 g/dL (13.5-17.5); LYMPHOCYTES 7.3 % (15-50); MCH 28.4 pg (26.0-34.0); MCHC 33.2 g/dL (31.0-37.0); MCV 85.4 fL (80.0-100.0); MEAN PLATELET VOLUME 8.2 fL (7.4-10.4); MONOCYTES 6.6 % (2-11); NEUTROPHILS 84.7 % (40-80); RBC 3.56 10x6/uL (4.20-6.10); RDW 14.8 % (11.5-14.5); WBC 9.5 10x3/uL (4.8-10.8)
[2020-12-12 20:35] LABS: BILIRUBIN NEGATIVE (NEGATIVE); KETONE NEGATIVE mg/dL (< 1+); NITRITE NEGATIVE (NEGATIVE); SQUAMOUS EPITHELIAL 4 HPF (0-4); UROBILINOGEN 3 mg/dL (< 2); WHITE CELLS - URINE >182 HPF (0-1)
[2020-12-12 20:35] LABS: PLATELET COUNT 169 10x3/uL (130-400)
[2020-12-12 21:03] LABS: AMYLASE - SERUM 37 U/L (25-115); CKMB 1.2 U/L (0.0-3.6); CREATINE KINASE 45 UL (21-232); LIPASE 65 U/L (73-393); PRO BNP 8184 pg/mL (0-450); TROPONIN-I < 0.017 ng/mL (0.000-0.060)
[2020-12-12 22:05] LABS: APTT 29.3 SECONDS (22.8-39.4); INR 1.21 (0.85-1.17); PROTIME 14.1 SECONDS (11.6-15.0)
[2020-12-12 22:51] LABS: CKMB 1.2 U/L (0.0-3.6); CREATINE KINASE 44 UL (21-232)
[2020-12-12 22:53] LABS: TROPONIN-I < 0.017 ng/mL (0.000-0.060)
[2020-12-13] VITALS: BP 91/56
[2020-12-13 00:53] LABS: UDS - AMPHET NEGATIVE QUAL (NEGATIVE); UDS - BARB NEGATIVE QUAL (NEGATIVE); UDS - BENZO NEGATIVE QUAL (NEGATIVE); UDS - COCAINE NEGATIVE QUAL (NEGATIVE); UDS - OPIATE NEGATIVE QUAL (NEGATIVE); UDS - PCP NEGATIVE QUAL (NEGATIVE); UDS - THC NEGATIVE QUAL (NEGATIVE)
--- NOTE | 2020-12-13 01:00 | NUR ---
PT BROUGHT TO FLOOR VIA STRETCHER. TRANSFERED TO BED. PT WAS ABLE TO SIDE ROLL REPOSITION SELF. BEDFAST PER SENIOR CARE. PEG TUBE TO LEFT ABD. PT STATES HE IS HUNGRY AND WANTS SOMETHING TO EAT. INFORMED PT HE WAS STILL NPO. PT VERBALIZED UNDERSTANDING. IV RIGHT HAND SL, FLUSHES EASILY. HEELS PROPPED ON PILLOW. REDDENED AREA TO BUTTOCKS. PLACED PT IN YELLOW GOWN. VARGAS ON. PT DENIES OTHER NEEDS AT THIS TIME. CL IN REACH
[2020-12-13] MEDS ORDERED: ALBUTEROL SULF8.5 GM INH (01:36)
[2020-12-13] MEDS ORDERED: COMBIGAN OPHT DR5 ML EACH EYE (01:37)
[2020-12-13] MEDS ORDERED: COREG 3.1253.125 MG PO (01:38)
[2020-12-13] MEDS ORDERED: CARDURA1 MG PO (01:40)
[2020-12-13] MEDS ORDERED: ENTRESTO 24 MG1 EACH PO (01:41)
[2020-12-13] MEDS ORDERED: SENNA LAXATIVE8.6 MG PO (01:44)
[2020-12-13] MEDS ORDERED: MUCINEX600 MG PO (01:46)
[2020-12-13 02:09] VITALS: BMI 27.2
[2020-12-13 04:00] VITALS: BP 106/64
[2020-12-13 06:45] VITALS: Ht 182.9 cm; Wt 91.5 kg
--- NOTE | 2020-12-13 08:52 | NUR ---
ALERT AND ORIENTED TO SELF AND PLACE. DENIES NEEDS. CALL RODRIGUEZ AND PERSONAL ITEMS IN REACH. WILL CONTINUE TO MONITOR.
[2020-12-13 08:58] VITALS: BP 107/59
[2020-12-13 09:17] LABS: BASOPHILS 0.4 % (0-2); EOSINOPHILS 1.1 % (0-7); HEMATOCRIT 30.5 % (42.0-54.0); HEMOGLOBIN 10.3 g/dL (13.5-17.5); LYMPHOCYTES 7.7 % (15-50); MCH 28.1 pg (26.0-34.0); MCHC 33.8 g/dL (31.0-37.0); MEAN PLATELET VOLUME 8.4 fL (7.4-10.4); MONOCYTES 6.9 % (2-11); NEUTROPHILS 83.9 % (40-80); RBC 3.66 10x6/uL (4.20-6.10); RDW 15.1 % (11.5-14.5); WBC 10.7 10x3/uL (4.8-10.8)
[2020-12-13 09:23] LABS: ALBUMIN 2.8 g/dL (3.4-5.0); ALKALINE PHOSPHATASE 71 U/L (30-120); ALT (SGPT) 22 U/L (10-68); BILIRUBIN - TOTAL 0.45 mg/dL (0.2-1.3); CALCIUM 8.3 mg/dL (8.5-10.1); CARBON DIOXIDE 30.3 mmol/L (21.0-32.0); CHLORIDE - SERUM 86 mmol/L (98-107); CREATININE - SERUM 0.5 mg/dL (0.6-1.3); MAGNESIUM - SERUM 1.7 mg/dL (1.8-2.4); PHOSPHOROUS 3.5 mg/dL (2.5-4.9); POTASSIUM - SERUM 4.4 mmol/L (3.5-5.1); UREA NITROGEN 12 mg/dL (7-18); eGFR NON AFRICAN AMERICAN > 90 mL/min (90-120)
[2020-12-13 09:26] LABS: MCV 83.3 fL (80.0-100.0); PLATELET COUNT 204 10x3/uL (130-400)
[2020-12-13 09:45] LABS: CALC OSMOLALITY 240 mosm/kg (275-300); GLUCOSE 74 mg/dL (74-106); SODIUM 120 mmol/L (136-145)
--- NOTE | 2020-12-13 11:35 | NUR ---
TELEMETRY ALREADY ON PATIENT.
--- NOTE | 2020-12-13 12:46 | NUR ---
RESTING IN BED. TELE MONITOR STATES PATIENT 79 PACED. PATIENT DENIES NEEDS AT THIS TIME. WILL CONTINUE TO MONITOR.
[2020-12-13 13:38] VITALS: BP 118/67
--- NOTE | 2020-12-13 14:03 | NUR ---
PATIENT SLEEPING. WILL CONTINUE TO MONITOR.
--- NOTE | 2020-12-13 16:53 | NUR ---
CHECKED RESIDUAL. 10ML NOTED. INCREASED TO 30ML HR.
--- NOTE | 2020-12-13 16:56 | NUR ---
PATIENT VOIDED IN BED. BED CHANGED. PULLED UP IN BED. CALL RODRIGUEZ IN REACH.
[2020-12-13 17:47] VITALS: BP 137/80
--- NOTE | 2020-12-13 18:45 | NUR ---
RESTING IN BED. AT BEDSIDE. CALL RODRIGUEZ IN REACH.
--- NOTE | 2020-12-13 19:00 | NUR ---
BEDSIDE REPORT RECEIVED AND CARE OF PT ASSUMED. PT LYING IN SUPINE POSITION WATCHING TV. IV TO RIGHT HAND SALINE LOCKED. G-TUBE PATENT WITH GLUCERNA 1.5 INFUSING VIA FEEDING PUMP AT 30 ML/HR. ORDERS TO INCREASE BY 10 ML Q 6 HOURS TO GOAL OF 45 ML/HR. TELEMETRY IN PLACE AND READING PACED AT THIS ASSESSMENT. SCD'S IN USE ON BLE. WILL MONITOR FOR NEDS.
--- NOTE | 2020-12-13 21:40 | NUR ---
HS MEDICATIONS GIVEN VIA PEG TUBE. CHANGED BEDPADS DUE TO INCONTINENCE. POSITIONED FOR COMFORT.
[2020-12-14 05:48] LABS: BASOPHILS 0.3 % (0-2); EOSINOPHILS 1.1 % (0-7); HEMATOCRIT 29.9 % (42.0-54.0); HEMOGLOBIN 10.3 g/dL (13.5-17.5); LYMPHOCYTES 6.8 % (15-50); MCH 28.6 pg (26.0-34.0); MCHC 34.5 g/dL (31.0-37.0); MEAN PLATELET VOLUME 8.2 fL (7.4-10.4); MONOCYTES 7.3 % (2-11); NEUTROPHILS 84.5 % (40-80); PLATELET COUNT 209 10x3/uL (130-400); RBC 3.61 10x6/uL (4.20-6.10); RDW 15.1 % (11.5-14.5); WBC 9.3 10x3/uL (4.8-10.8)
[2020-12-14 06:11] LABS: ALBUMIN 2.6 g/dL (3.4-5.0); ALKALINE PHOSPHATASE 80 U/L (30-120); ALT (SGPT) 18 U/L (10-68); BILIRUBIN - TOTAL 0.36 mg/dL (0.2-1.3); CALC OSMOLALITY 242 mosm/kg (275-300); CALCIUM 8.3 mg/dL (8.5-10.1); CARBON DIOXIDE 30.6 mmol/L (21.0-32.0); CREATININE - SERUM 0.4 mg/dL (0.6-1.3); GLUCOSE 101 mg/dL (74-106); MAGNESIUM - SERUM 1.6 mg/dL (1.8-2.4); PHOSPHOROUS 4.2 mg/dL (2.5-4.9); POTASSIUM - SERUM 4.3 mmol/L (3.5-5.1); PROTEIN - SERUM 5.9 g/dL (6.4-8.2); SODIUM 121 mmol/L (136-145); UREA NITROGEN 11 mg/dL (7-18); eGFR NON AFRICAN AMERICAN > 90 mL/min (90-120)
[2020-12-14 06:54] LABS: CHLORIDE - SERUM 85 mmol/L (98-107)
[2020-12-14 08:00] VITALS: BP 116/69
[2020-12-14 12:29] VITALS: BP 103/57
[2020-12-14 16:15] VITALS: BP 102/49
--- NOTE | 2020-12-14 19:00 | NUR ---
BEDSIDE REPORT RECEIVED AND CARE OF PT ASSUMED. PT LYING IN MID BRASWELL'S POSITION WATCHING TV. IV TO RIGHT WRIST SALINE LOCKED. PEG TUBE PATENT WITH GLUCERNA 1.5 INFUSING AT 45 ML/HR. CONDOM CATHETER IN PLACE FOR INCONTINENCE. TELEMETRY IN PLACE AND READING PACED AT THIS ASSESSMENT. WILL MONITOR FOR NEEDS.
--- NOTE | 2020-12-14 20:19 | NUR ---
HS MEDICATIONS GIVEN VIA PEG TUBE. WILL CONTINUE TO MONITOR FOR NEEDS.
--- NOTE | 2020-12-15 02:46 | NUR ---
CHANGED OUT ALL FEEDING BAGS AND TUBING.
--- NOTE | 2020-12-15 07:24 | NUR ---
RECIEVED BEDSIDE REPORT. BED LOW POSITION, CALL LIGHT IN REACH. IN BED SLEEPING. FREE FROM SIGNS OF DISTRESS. WILL CONTINUE TO MONITOR.
[2020-12-15 08:33] LABS: BASOPHILS 0.2 % (0-2); EOSINOPHILS 1.3 % (0-7); HEMATOCRIT 33.3 % (42.0-54.0); HEMOGLOBIN 11.1 g/dL (13.5-17.5); LYMPHOCYTES 6.3 % (15-50); MCH 28.1 pg (26.0-34.0); MCHC 33.4 g/dL (31.0-37.0); MEAN PLATELET VOLUME 7.5 fL (7.4-10.4); MONOCYTES 6.6 % (2-11); NEUTROPHILS 85.6 % (40-80); PLATELET COUNT 225 10x3/uL (130-400); RBC 3.96 10x6/uL (4.20-6.10); RDW 14.8 % (11.5-14.5); WBC 10.2 10x3/uL (4.8-10.8)
[2020-12-15 08:46] LABS: ALBUMIN 2.8 g/dL (3.4-5.0); ALKALINE PHOSPHATASE 90 U/L (30-120); ALT (SGPT) 19 U/L (10-68); BILIRUBIN - TOTAL 0.35 mg/dL (0.2-1.3); CALC OSMOLALITY 247 mosm/kg (275-300); CARBON DIOXIDE 36.2 mmol/L (21.0-32.0); CHLORIDE - SERUM 87 mmol/L (98-107); GLUCOSE 119 mg/dL (74-106); MAGNESIUM - SERUM 1.7 mg/dL (1.8-2.4); PHOSPHOROUS 3.8 mg/dL (2.5-4.9); PROTEIN - SERUM 6.2 g/dL (6.4-8.2); SODIUM 123 mmol/L (136-145); UREA NITROGEN 11 mg/dL (7-18)
[2020-12-15 08:50] LABS: CREATININE - SERUM 0.6 mg/dL (0.6-1.3)
[2020-12-15 08:51] LABS: eGFR NON AFRICAN AMERICAN > 90 mL/min (90-120)
[2020-12-15 10:27] VITALS: BP 103/59
--- NOTE | 2020-12-15 13:34 | NUR ---
ATTEMPTED TO CALL REPORT, TRANSPORTED PATIENT TO 2126 AND GAVE BEDSIDE REPORT. PATIENT FREE FROM SIGNS OF DISTRESS. BED LOW POSITION, CALL LIGHT IN REACH.
--- NOTE | 2020-12-15 13:54 | NUR ---
PATIENT TO ROOM FROM MED/SURG FOR DOBUTAMINE THARAPY, STARTED AT 13.5 CC'S
--- NOTE | 2020-12-15 14:11 | NUR ---
Nutrition Follow-up: TF order (via J-PEG): Glucerna 1.5 @ 45mL/hr + H2O @ 25mL/hr STRICT NO FREE WATER, USE LITTLE H2O POSSIBLE FOR ANY PEG FLUSHES-per MD Patient tolerating TF at goal rate per RN. Last BM: none since admit Wt: 199# (12/15/20) Meds noted: lasix, probiotics, SSI, abx Labs noted: Na 123(L), Glu 119(H), POC Glu 124(H) Recommend: -Continue Glucerna 1.5 @ 45mL/hr + H2O @ 25mL/hr -RD will follow-up within 2-3 days.
[2020-12-15 17:43] VITALS: BP 100/55
[2020-12-15 20:00] VITALS: BP 108/53
[2020-12-16] VITALS: BP 104/76
--- NOTE | 2020-12-16 01:30 | NUR ---
CHANGED TUBE FEEDING BAGS.
--- NOTE | 2020-12-16 01:46 | NUR ---
RESTING WITH EYES CLOSED, NO S/S DISTRESS NOTED. BED LOW, CL IN REACH.
[2020-12-16 05:49] LABS: BASOPHILS 0.3 % (0-2); EOSINOPHILS 1.4 % (0-7); HEMATOCRIT 30.7 % (42.0-54.0); HEMOGLOBIN 10.3 g/dL (13.5-17.5); LYMPHOCYTES 7.6 % (15-50); MCH 28.2 pg (26.0-34.0); MCHC 33.7 g/dL (31.0-37.0); MCV 83.7 fL (80.0-100.0); MEAN PLATELET VOLUME 7.8 fL (7.4-10.4); MONOCYTES 7.4 % (2-11); NEUTROPHILS 83.3 % (40-80); PLATELET COUNT 208 10x3/uL (130-400); RBC 3.66 10x6/uL (4.20-6.10); RDW 14.9 % (11.5-14.5); WBC 10.6 10x3/uL (4.8-10.8)
[2020-12-16 06:21] LABS: ALBUMIN 2.7 g/dL (3.4-5.0); ALKALINE PHOSPHATASE 80 U/L (30-120); ALT (SGPT) 19 U/L (10-68); BILIRUBIN - TOTAL 0.26 mg/dL (0.2-1.3); CALC OSMOLALITY 249 mosm/kg (275-300); CALCIUM 7.7 mg/dL (8.5-10.1); CARBON DIOXIDE 32.5 mmol/L (21.0-32.0); CHLORIDE - SERUM 87 mmol/L (98-107); CREATININE - SERUM 0.5 mg/dL (0.6-1.3); GLUCOSE 115 mg/dL (74-106); MAGNESIUM - SERUM 1.7 mg/dL (1.8-2.4); PHOSPHOROUS 3.7 mg/dL (2.5-4.9); POTASSIUM - SERUM 3.6 mmol/L (3.5-5.1); PROTEIN - SERUM 5.7 g/dL (6.4-8.2); SODIUM 123 mmol/L (136-145); eGFR NON AFRICAN AMERICAN > 90 mL/min (90-120)
[2020-12-16 06:26] LABS: UREA NITROGEN 14 mg/dL (7-18)
[2020-12-16 06:39] VITALS: BP 91/49
--- NOTE | 2020-12-16 07:20 | NUR ---
RECIEVE REPORT. RESTING IN BED WITH EYES CLOSED. PEG TUBE INFUSING ORDERED. DOBUTAMINE INFUSING ORDERED. SINUS PACED ON TELEMETRY. NO SIGNS OF DISTRESS. CONTINUE PLAN OF CARE AND SAFETY PRECAUTIONS.
[2020-12-16 08:40] VITALS: BP 105/57
[2020-12-16 12:03] VITALS: BP 114/62
[2020-12-16 17:01] VITALS: BP 116/81
--- NOTE | 2020-12-16 19:44 | NUR ---
PT AWAKE IN BED, WATCHING TV. PTS SIGNIGICANT OTHER HAD JUST LEFT HIS ROOM, ON HER WAY OUT THE DOOR SHE STOPPED AND TOLD PT TO "FUCK OFF AND THAT WE ARE DOING THINGS HER WAY OR THE HIGHWAY" THIS NURSE INFORMED PT THAT IF SHE COMES BACK TONIGHT AND IS STILL DISPUTIVE WE WILL HAVE TO ASK HER TO LEAVE. PT STATED UNDERSTANDING.
[2020-12-16 20:00] VITALS: BP 108/57
[2020-12-17] VITALS: BP 100/45
--- NOTE | 2020-12-17 00:38 | NUR ---
IN BED RESTING WITH EYES CLOSED, NO S/S DISTRESS NOTED. BED LOW, CL IN REACH.
--- NOTE | 2020-12-17 02:05 | NUR ---
TUBING TO FEEDING PUMP CHANGED.
[2020-12-17 04:00] VITALS: BP 108/60
[2020-12-17 07:04] LABS: BASOPHILS 0.6 % (0-2); EOSINOPHILS 1.7 % (0-7); HEMATOCRIT 32.1 % (42.0-54.0); HEMOGLOBIN 10.8 g/dL (13.5-17.5); LYMPHOCYTES 6.3 % (15-50); MCH 28.3 pg (26.0-34.0); MCHC 33.7 g/dL (31.0-37.0); MCV 83.9 fL (80.0-100.0); MEAN PLATELET VOLUME 7.8 fL (7.4-10.4); MONOCYTES 7.8 % (2-11); NEUTROPHILS 83.6 % (40-80); PLATELET COUNT 229 10x3/uL (130-400); RBC 3.83 10x6/uL (4.20-6.10); RDW 15.2 % (11.5-14.5); WBC 10.1 10x3/uL (4.8-10.8)
[2020-12-17 07:14] LABS: ALBUMIN 2.8 g/dL (3.4-5.0); ALKALINE PHOSPHATASE 77 U/L (30-120); ALT (SGPT) 23 U/L (10-68); BILIRUBIN - TOTAL 0.43 mg/dL (0.2-1.3); CALC OSMOLALITY 251 mosm/kg (275-300); CALCIUM 7.8 mg/dL (8.5-10.1); CARBON DIOXIDE 35.8 mmol/L (21.0-32.0); CHLORIDE - SERUM 87 mmol/L (98-107); CREATININE - SERUM 0.6 mg/dL (0.6-1.3); GLUCOSE 109 mg/dL (74-106); MAGNESIUM - SERUM 1.8 mg/dL (1.8-2.4); PHOSPHOROUS 3.7 mg/dL (2.5-4.9); POTASSIUM - SERUM 3.9 mmol/L (3.5-5.1); SODIUM 124 mmol/L (136-145); UREA NITROGEN 15 mg/dL (7-18); eGFR NON AFRICAN AMERICAN > 90 mL/min (90-120)
[2020-12-17 08:42] VITALS: BP 117/56
[2020-12-17 18:10] VITALS: BP 110/60
[2020-12-18 01:21] VITALS: BP 114/58
[2020-12-18 03:19] VITALS: BP 113/57
[2020-12-18 06:13] VITALS: BP 158/50
[2020-12-18 06:30] LABS: BASOPHILS 0.3 % (0-2); EOSINOPHILS 1.5 % (0-7); HEMATOCRIT 30.2 % (42.0-54.0); HEMOGLOBIN 10.2 g/dL (13.5-17.5); MCH 28.3 pg (26.0-34.0); MCHC 33.8 g/dL (31.0-37.0); MCV 83.8 fL (80.0-100.0); MEAN PLATELET VOLUME 7.9 fL (7.4-10.4); MONOCYTES 7.5 % (2-11); NEUTROPHILS 82.7 % (40-80); PLATELET COUNT 221 10x3/uL (130-400); RDW 14.6 % (11.5-14.5); WBC 9.5 10x3/uL (4.8-10.8)
[2020-12-18 06:49] LABS: ALBUMIN 2.8 g/dL (3.4-5.0); ALKALINE PHOSPHATASE 82 U/L (30-120); ALT (SGPT) 21 U/L (10-68); BILIRUBIN - TOTAL 0.29 mg/dL (0.2-1.3); CALC OSMOLALITY 250 mosm/kg (275-300); CALCIUM 7.8 mg/dL (8.5-10.1); CARBON DIOXIDE 35.5 mmol/L (21.0-32.0); CHLORIDE - SERUM 87 mmol/L (98-107); CREATININE - SERUM 0.6 mg/dL (0.6-1.3); GLUCOSE 97 mg/dL (74-106); MAGNESIUM - SERUM 1.9 mg/dL (1.8-2.4); PHOSPHOROUS 3.4 mg/dL (2.5-4.9); POTASSIUM - SERUM 3.4 mmol/L (3.5-5.1); PROTEIN - SERUM 6.1 g/dL (6.4-8.2); SODIUM 125 mmol/L (136-145); eGFR NON AFRICAN AMERICAN > 90 mL/min (90-120)
[2020-12-18 06:50] LABS: UREA NITROGEN 11 mg/dL (7-18)
[2020-12-18 08:15] VITALS: BP 116/67
--- NOTE | 2020-12-18 08:17 | NUR ---
PT RECEIVED ASLEEP IN BED. AROUSE TO VOICE/TOUCH.
[2020-12-18] MEDS ORDERED: THERMOTABS 1 GM1 GM PO (08:55)
--- NOTE | 2020-12-18 12:36 | NUR ---
PT CLEANED AND DRESSED FOR DISCHARGE. PACKET GIVEN TO PC MAINTENANCE TECHNICIAN. REPORT CALLED, TELEMETRY REMOVED AND IV OUT.
--- NOTE | 2020-12-18 14:32 | MORECARE ---
CASE MANAGEMENT DISCHARGE SUMMARY PATIENT: SOURAV KIRKPATRICK UNIT: [id number] ADM DATE: 12/12/20 AGE: 85 : 37 SEX: M ROOM/BED: D.2127 AUTHOR: ROMI,DOC PHYSICIAN: REFERRING PHYSICIAN: ALONDRA MOORE MD DATE OF SERVICE: 12/18/20 Case Management Discharge Planning Summary DCP REVIEW SUMMARY ANTICIPATED D/C DATE: 12/18/2020 EXPECTED LOS : 6 CASE STATUS: DCP Initiated INITIAL REVIEW: 12/12/2020 INITIAL REVIEWER: Donna Martinez FINAL DISCHARGE DISPOSITION: : FINAL REVIEWER: FINAL REVIEW DATE: DCP Focus Questions & Answers QUESTION: ANSWER : PATIENT: SOURAV KIRKPATRICK ENCOUNTER: [id number] MEDICAL RECORD#: [id number] ADMISSION DATE: 12/12/2020 DISCHARGE DATE: 12/18/2020 ATTENDING MD: ALONDRA MCNEILL : AGE: 85 MARITAL STATUS: D DC PLAN ID: [id number] FACILITY: [facility] PRINTED ON: 12/18/20 14:31 CT All edits/amendments must be made on the electronic document DICTATION DATE: 12/18/20 143 MANAGER TREASURY: SEBLE 12/18/20 143 RPT#: [id number] DC DATE:12/18/20 STATUS: DIS IN [facility] [address] [place] [address] END OF REPORT
== END 2020-12-18 12:37 | DRG 640 ==
LOC: D.ER 18:56 → D.EDHOLD 21:53 → D.MS 21:53 → D.M2 21:53 → D.MS 22:50 → D.M2 12-15 13:31
PROVIDERS: Emergency Medicine; Family Medicine; ADMIT Emergency Medicine; ATTEND Emergency Medicine
DX: E87.1 Hypo-osmolality and hyponatremia (principal); I50.23 Acute on chronic systolic (congestive) heart failure; N39.0 Urinary tract infection, site not specified; G72.81 Critical illness myopathy; I11.0 Hypertensive heart disease with heart failure; D63.8 Anemia in other chronic diseases classified elsewhere; R26.89 Other abnormalities of gait and mobility; G89.29 Other chronic pain; M54.9 Dorsalgia, unspecified; E78.5 Hyperlipidemia, unspecified; F03.90 Unspecified dementia, unspecified severity, without behavioral disturbance, psychotic disturbance, mood disturbance, and anxiety; E88.09 Other disorders of plasma-protein metabolism, not elsewhere classified; I25.10 Atherosclerotic heart disease of native coronary artery without angina pectoris; Z93.1 Gastrostomy status; Z95.1 Presence of aortocoronary bypass graft; Z86.16 Personal history of COVID-19; Z95.0 Presence of cardiac pacemaker; Z86.73 Personal history of transient ischemic attack (TIA), and cerebral infarction without residual deficits; E11.9 Type 2 diabetes mellitus without complications; Z79.84 Long term (current) use of oral hypoglycemic drugs; Z79.82 Long term (current) use of aspirin; R33.9 Retention of urine, unspecified